=== PATIENT | male | born 1960 | race Caucasian/White ===

== ENCOUNTER 2017-05-31 14:26 | Inpatient (IN) | payer OTHER ==
[2017-05-31] MEDS ORDERED: IPRATROPIUM-ALBUTEROL 3 ML NEB INHALATION STA (14:51)
--- NOTE | 2017-05-31 14:53 | ED ---
General Adult HPI - General Chief complaint: Shortness of Breath Stated complaint: Fever, Upper Resp Issues Time Seen by Provider: 05/31/17 14:33 Source: family, RN notes reviewed Mode of arrival: wheelchair Limitations: altered mental status, physical limitation - History of Present Illness Initial comments: Patient is a 57-year-old male presenting to emergency Department with staff member for concerns for breathing. Onset was around 1:30 AM. Patient was noticed to be wheezing and had fever. Patient was given medications. Patient did receive Tylenol or Motrin at 11:30 and 1:30. Patient did have a nebulizer treatment prior to arrival. Patient has a history of head injury and provides no significant history. Patient is not ambulatory. - Related Data Home Medications Medication Instructions Recorded Confirmed Acetaminophen Tab [Tylenol Tab] 1,000 mg PO Q6HR PRN 10/04/16 05/31/17 Albuterol Nebulized [Ventolin 2.5 mg INHALATION RT-Q4H PRN 10/04/16 05/31/17 Nebulized] Divalproex Sodium [Depakote 125 mg PO QID 10/04/16 05/31/17 Sprinkle] Divalproex Sodium [Depakote] 500 mg PO QID 10/04/16 05/31/17 Docusate [Colace] 200 mg PO BID@08,199910/04/16 05/31/17 Famotidine [Pepcid] 20 mg PO HS@199910/04/16 05/31/17 Ferrous Sulfate [Feosol] 325 mg PO DAILY@0800 10/04/16 05/31/17 Furosemide [Lasix] 60 mg PO BID@799,199910/04/16 05/31/17 Ipratropium Nebulized [Atrovent 0.5 mg INHALATION RT-QID 10/04/16 05/31/17 Nebulized] LORazepam [Ativan] 1 mg PO TID PRN 10/04/16 05/31/17 Loratadine 10 mg PO DAILY@0800 10/04/16 05/31/17 Magnesium Hydroxide [Milk of 2,400 mg PO DAILY PRN 10/04/16 05/31/17 Magnesia] Potassium Chloride ER [K-Dur 10] 10 meq PO BID@799,199910/04/16 05/31/17 carBAMazepine [TEGretol] 400 mg PO TID@0800,1400,199910/04/16 05/31/17 predniSONE 20 mg PO HS@199910/04/16 05/31/17 risperiDONE 1 mg PO QID 10/04/16 05/31/17 Atorvastatin [Lipitor] 20 mg PO HS@199905/31/17 05/31/17 Hydrocortisone Cream 1 applic TOPICAL BID@00,199905/31/17 05/31/17 [Hydrocortisone 1% Cream] Allergies Allergy/AdvReac Type Severity Reaction Status Date / Time No Known Allergies Allergy Verified 05/31/17 15:30 Review of Systems ROS Statement: Those systems with pertinent positive or pertinent negative responses have been documented in the HPI. ROS Other: All systems not noted in ROS Statement are negative. Constitutional: Reports: fever Eyes: Denies: eye discharge ENT: Denies: epistaxis Respiratory: Reports: dyspnea Cardiovascular: Denies: edema Endocrine: Denies: heat or cold intolerance Gastrointestinal: Denies: vomiting Genitourinary: Denies: hematuria Musculoskeletal: Denies: arthralgia Skin: Denies: rash Hematological/Lymphatic: Denies: easy bleeding Past Medical History Past Medical History: Heart Failure, COPD, Hypertension, Memory Impairment, Pneumonia, Seizure Disorder Additional Past Medical History / Comment(s): verbal outbursts,VERBALLY INAPPROPRIATE, TRAUMATIC BRAIN INJURY,LT HEMIPARESIS,INCONT OF STOOL/URINE, FEET SENSATIVE.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 History of Any Multi-Drug Resistant Organisms: Unobtainable Past Surgical History: Unable to Obtain Additional Past Surgical History / Comment(s): [facility]- THEY HAD NO HX OF ANY SX. Past Anesthesia/Blood Transfusion Reactions: Unable to Obtain Past Psychological History: Depression Smoking Status: Former smoker Past Alcohol Use History: Occasional Past Drug Use History: None Reported - Past Family History Father Family Medical History: Unable to Obtain Mother Family Medical History: Unable to Obtain General Exam Limitations: no limitations General appearance: alert, in no apparent distress Head exam: Present: atraumatic Eye exam: Present: normal appearance, PERRL ENT exam: Present: normal oropharynx Neck exam: Present: normal inspection Respiratory exam: Present: wheezes, rhonchi Cardiovascular Exam: Present: tachycardia GI/Abdominal exam: Present: soft. Absent: tenderness Extremities exam: Present: normal inspection Neurological exam: Present: alert, altered, motor sensory deficit (Bilateral leg and left arm weakness) Psychiatric exam: Present: agitated Skin exam: Present: normal color Course Vital Signs 05/31/17 05/31/17 05/31/17 14:36 14:59 15:06 Temperature 98.7 F Pulse Rate 122 H 105 H Respiratory 30 H 26 H Rate Blood Pressure 163/95 O2 Sat by Pulse 97 Oximetry 05/31/17 05/31/17 05/31/17 15:18 15:30 16:38 Temperature Pulse Rate 102 H 103 H 100 Respiratory 22 24 Rate Blood Pressure 137/77 159/68 O2 Sat by Pulse 95 95 Oximetry - Reevaluation(s) Reevaluation #1: 05/31/17 15:48 Patient meet sepsis criteria diagnosed at 1542. Chest x-ray cannot rule out pneumonia with clinical concerns for pneumonia. Urine has been sent. Lactic acid is elevated at 4.85 patient for septic shock. IV fluid bolus of 30 mL/kg has been ordered. IV antibiotics has been ordered. Blood cultures and urine culture have also been ordered. Practice Advisor was updated. EKG Findings - EKG Comments: EKG Findings:: Sinus tachycardia 107. MS 152. QRS 92. QT 328. QTC 437. Normal axis. Normal QRS. Nonspecific ST-T. Procedures - Sepsis Sepsis Focused Exam #1 Time Sepsis Criteria Met: 15:42 Sepsis Focused Exam Date: 05/31/17 Sepsis Focused Exam Time: 15:42 Sepsis Focused Exam Complete: Yes Vital Signs & RN Notes Reviewed: Yes Capillary Refill: < 2 Seconds: Fingers, Toes Peripheral Pulses: Normal: Radial (R), Radial (L), Posterior Tibialis (R), Posterior Tibialis (L) Skin Color: Normal for Patient Respiratory Exam: rhonchi Cardiovascular Exam: tachycardia Medical Decision Making - Medical Decision Making Patient was reevaluated. Case was discussed with Dr. david, who will admit for Dr. Bhandari. Case was also discussed with Dr. Pacheco, who will consult for Dr. Byers. He does not feel patient needs to go to the ICU. Patient clinically has diagnosis of pneumonia which treated for this. - Lab Data Result diagrams: 05/31/17 14:51 05/31/17 14:51 Lab Results 05/31/17 05/31/17 05/31/17 Range/Units 14:51 14:51 14:51 WBC 13.1 H (3.8-10.6) k/uL RBC 4.23 L (4.30-5.90) m/uL Hgb 12.7 L (13.0-17.5) gm/dL Hct 40.1 (39.0-53.0) % MCV 94.9 (80.0-100.0) fL MCH 30.1 (25.0-35.0) pg MCHC 31.8 (31.0-37.0) g/dL RDW 14.2 (11.5-15.5) % Plt Count 292 (150-450) k/uL Neutrophils % 78 % Lymphocytes % 14 % Monocytes % 6 % Eosinophils % 1 % Basophils % 0 % Neutrophils # 10.2 H (1.3-7.7) k/uL Lymphocytes # 1.8 (1.0-4.8) k/uL Monocytes # 0.8 (0-1.0) k/uL Eosinophils # 0.1 (0-0.7) k/uL Basophils # 0.0 (0-0.2) k/uL PT (9.0-12.0) sec INR (<1.2) APTT (22.0-30.0) sec Sodium 142 (137-145) mmol/L Potassium 3.5 (3.5-5.1) mmol/L Chloride 100 (98-107) mmol/L Carbon Dioxide 27 (22-30) mmol/L Anion Gap 15 mmol/L BUN 9 (9-20) mg/dL Creatinine 0.70 (0.66-1.25) mg/dL Est GFR (MDRD) Af Amer >60 (>60 ml/min/1.73 sqM) Est GFR (MDRD) Non-Af >60 (>60 ml/min/1.73 sqM) Glucose 141 H (74-99) mg/dL Plasma Lactic Acid Hermes 4.8 H* (0.7-2.0) mmol/L Calcium 9.3 (8.4-10.2) mg/dL Total Bilirubin 0.3 (0.2-1.3) mg/dL AST 14 L (17-59) U/L ALT 22 (21-72) U/L Alkaline Phosphatase 90 (38-126) U/L Total Protein 6.7 (6.3-8.2) g/dL Albumin 4.1 (3.5-5.0) g/dL Urine Color Urine Appearance (Clear) Urine pH (5.0-8.0) Ur Specific [place] (1.001-1.035) Urine Protein (Negative) Urine Glucose (UA) (Negative) Urine Ketones (Negative) Urine Blood (Negative) Urine Nitrite (Negative) Urine Bilirubin (Negative) Urine Urobilinogen (<2.0) mg/dL Ur Leukocyte Esterase (Negative) 05/31/17 05/31/17 Range/Units 14:51 15:39 WBC (3.8-10.6) k/uL RBC (4.30-5.90) m/uL Hgb (13.0-17.5) gm/dL Hct (39.0-53.0) % MCV (80.0-100.0) fL MCH (25.0-35.0) pg MCHC (31.0-37.0) g/dL RDW (11.5-15.5) % Plt Count (150-450) k/uL Neutrophils % % Lymphocytes % % Monocytes % % Eosinophils % % Basophils % % Neutrophils # (1.3-7.7) k/uL Lymphocytes # (1.0-4.8) k/uL Monocytes # (0-1.0) k/uL Eosinophils # (0-0.7) k/uL Basophils # (0-0.2) k/uL PT 11.3 (9.0-12.0) sec INR 1.1 (<1.2) APTT 26.5 (22.0-30.0) sec Sodium (137-145) mmol/L Potassium (3.5-5.1) mmol/L Chloride (98-107) mmol/L Carbon Dioxide (22-30) mmol/L Anion Gap mmol/L BUN (9-20) mg/dL Creatinine (0.66-1.25) mg/dL Est GFR (MDRD) Af Amer (>60 ml/min/1.73 sqM) Est GFR (MDRD) Non-Af (>60 ml/min/1.73 sqM) Glucose (74-99) mg/dL Plasma Lactic Acid Hermes (0.7-2.0) mmol/L Calcium (8.4-10.2) mg/dL Total Bilirubin (0.2-1.3) mg/dL AST (17-59) U/L ALT (21-72) U/L Alkaline Phosphatase (38-126) U/L Total Protein (6.3-8.2) g/dL Albumin (3.5-5.0) g/dL Urine Color Yellow Urine Appearance Clear (Clear) Urine pH 6.5 (5.0-8.0) Ur Specific [place] 1.013 (1.001-1.035) Urine Protein Negative (Negative) Urine Glucose (UA) Negative (Negative) Urine Ketones Negative (Negative) Urine Blood Negative (Negative) Urine Nitrite Negative (Negative) Urine Bilirubin Negative (Negative) Urine Urobilinogen <2.0 (<2.0) mg/dL Ur Leukocyte Esterase Negative (Negative) - Radiology Data Radiology results: image reviewed (Chest x-ray shows diffuse interstitial changes.) Critical Care Time Critical Care Time: Yes Total Critical Care Time: 35 Disposition Clinical Impression: Septic shock, Pneumonia Disposition[facility] Condition: Serious Referrals: Alexander Bhandari MD [Primary Care Provider] - 1-2 days Decision Time: 16:42
[2017-05-31] MEDS: SODIUM CHLORIDE 0.9% 500 ML IV SCH (14:59)
[2017-05-31 15:22] LABS: ALT 22 U/L (21-72); AST 14 U/L (17-59); Alkaline Phosphatase 90 U/L (38-126); Anion Gap 15 mmol/L; Blood Urea Nitrogen 9 mg/dL (9-20); Calcium 9.3 mg/dL (8.4-10.2); Carbon Dioxide 27 mmol/L (22-30); Chloride 100 mmol/L (98-107); Glucose 141 mg/dL (74-99); Non-African American GFR(MDRD) >60 (>60 ml/min/1.73 sqM); Potassium 3.5 mmol/L (3.5-5.1); Sodium 142 mmol/L (137-145); Total Bilirubin 0.3 mg/dL (0.2-1.3); Total Protein 6.7 g/dL (6.3-8.2)
[2017-05-31 15:25] LABS: INR 1.1 (<1.2); Partial Thromboplastin Time 26.5 sec (22.0-30.0); Prothrombin Time 11.3 sec (9.0-12.0)
[2017-05-31] MEDS ORDERED: SODIUM CHLORIDE 0.9% 1,000 ML IV STA (15:32)
[2017-05-31] MEDS ORDERED: SODIUM CHLORIDE 0.9% 500 ML IV STA (15:32)
[2017-05-31] MEDS ORDERED: SODIUM CHLORIDE 0.9% 250 ML IV STA (15:32)
[2017-05-31 15:35] LABS: Basophils % (A) 0 %; CH 30.2; Eosinophils # (A) 0.1 k/uL (0-0.7); Eosinophils % (A) 1 %; HCT 40.1 % (39.0-53.0); HDW 2.57; HGB 12.7 gm/dL (13.0-17.5); Luc # (Auto) 0.15; Luc % (Auto) 1; Lymphocytes # (A) 1.8 k/uL (1.0-4.8); Lymphocytes % (A) 14 %; MCH 30.1 pg (25.0-35.0); MCHC 31.8 g/dL (31.0-37.0); MCV 94.9 fL (80.0-100.0); Mean Platelet Volume 6.8; Monocytes # (A) 0.8 k/uL (0-1.0); Monocytes % (A) 6 %; Neutrophils # (A) 10.2 k/uL (1.3-7.7); Neutrophils % (A) 78 %; RBC 4.23 m/uL (4.30-5.90); RDW 14.2 % (11.5-15.5); WBC 13.1 k/uL (3.8-10.6); WBC (Perox) 12.68
--- NOTE | 2017-05-31 15:37 | XR ---
EXAMINATION TYPE: XR chest 2V DATE OF EXAM: 05/31/2017 COMPARISON: Chest x-ray October 11, 2016. HISTORY: Fever per order. Also shortness of breath. TECHNIQUE: Frontal and lateral views of the chest are obtained. FINDINGS: Elevated left hemidiaphragm is redemonstrated. There is redemonstration of low lung volumes with reticulonodular interstitial changes felt to reflect predominantly fibrosis. Some areas of acut e infiltrate particularly in the lung bases is difficult to exclude on background of suspected advanc ed chronic interstitial changes. The cardiac silhouette size is stable and likely slightly enlarged. The osseous structures are demineralized. Prominent degenerative change in both shoulders is redemo nstrated IMPRESSION: Low lung volumes and elevated left hemidiaphragm with reticulonodular interstitial greer es bilaterally suggesting advanced interstitial fibrosis all redemonstrated, areas of acute infiltrat e are difficult to exclude particularly in both lung bases on background of chronic changes.
[2017-05-31 15:46] LABS: Appearance,Urine Clear (Clear); Bilirubin,Urine Negative (Negative); Glucose,Urine (UA) Negative (Negative); Ketones,Urine Negative (Negative); Leukocyte Esterase,Urine Negative (Negative); Nitrite,Urine Negative (Negative); PH, Urine 6.5 (5.0-8.0); Protein,Urine Negative (Negative); Specific Gravity,Urine 1.013 (1.001-1.035); UA Billing (MACRO vs. MICRO) CHEM; Urobilinogen,Urine <2.0 mg/dL (<2.0)
[2017-05-31] MEDS ORDERED: LEVOFLOXACIN 750MG-D5W PMX 750 MG in DEXTROSE/WATER 1 150ML.BAG IVPB STA (15:47)
[2017-05-31] MEDS ORDERED: LEVOFLOXACIN 750MG-D5W PMX 750 MG in DEXTROSE/WATER 1 150ML.BAG IVPB SCH (16:00)
[2017-05-31] MEDS ORDERED: PNEUMONIA PROTOCOL UTILIZED 1 EACH MISC PO PRN (16:42)
[2017-05-31] MEDS ORDERED: IPRATROPIUM-ALBUTEROL 3 ML NEB INHALATION PRN (16:42)
[2017-05-31] MEDS ORDERED: PIPERACILLIN-TAZOBACTAM 3.375 GM in DEXTROSE/WATER 1 50ML.BAG IVPB STA (16:42)
[2017-05-31 16:45] LABS: Carbamazepine (Tegretol) 12.5 ug/mL
[2017-05-31] MEDS ORDERED: ALBUTEROL NEBULIZED 2.5 MG/3 ML INHALATION PRN (17:28)
[2017-05-31] MEDS ORDERED: ACETAMINOPHEN TAB 500 MG TAB PO PRN (17:28)
[2017-05-31] MEDS ORDERED: MAGNESIUM HYDROXIDE 2,400 MG/10 ML CUP PO PRN (17:28)
[2017-05-31 17:50] VITALS: BMI 27.5
[2017-05-31] MEDS ORDERED: HALOPERIDOL LACTATE 5 MG/ML 1 ML VIAL IM PRN (17:57)
[2017-05-31] MEDS ORDERED: PIPERACILLIN-TAZOBACTAM 3.375 GM in DEXTROSE/WATER 1 50ML.BAG IVPB SCH (18:00)
--- NOTE | 2017-05-31 18:28 | P.HPIM ---
History of Present Illness H&P Date: 05/31/17 (PCP Dr. Bhandari) Chief Complaint: From [facility] short of breath Admission history and physical date of service 05/31/[address] Alexander Bhandari Dictating admission history and physical in the temporary absence of Dr. Mal Bhandari Dictating history and physical by Dr. Yessica Schwarz M.D. [facility]. Patient resident at [facility] Home. Patient brought to the emergency room by EMS with the underlying shortness of breath and found that his lactic acid was 4 admitted because of possible sepsis. History of present illness Emi admitted today on May with a shortness of breath had fever at the [facility] found that he had lactic acid elevation with a previous presentation on 10/04/2016 with similar finding. 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 History of depression no alcohol intake no drug intake and never smoked. Family history on available social history resident at [facility] care. Review of system could not be obtained as patient is non-verbal with the explosive behavior. In the emergency room patient placed on pneumonia protocol. Because just the event of lactic acid elevation, and the chest x-ray was not clearly identified pneumonia however patient has mild leukocytosis probably associated with prednisone. Unclear how long the patient has been taken prednisone and what is the reason for that. 9 in previous record showed that the x-ray has similar finding with the shift to the right, elevation of the left hemidiaphragm, largest amount bubble on the left. However overall looks as pulmonary scarring more than infection and leukocytosis could be from the margination of the steroid especially found that his presence of elevated Tegretol level and a Depakote level in the appear to be toxic dose we held the medication. Physical exam: Patient is is conscious and alert however he is abusing verbally to the nursing staff as well as to me at the time of the exam. He could not move his left arm or left leg with the clinching of the hand on his left hand. HEENT: He had skin lesion in the right congregation keratosis however it is enlarged. The head is normocephalic and atraumatic pupil was equal reactive oropharynx he had few decayed and uvula midline tongue was normal no fascial asymmetry. Was supple no JVD he had a scar on the base of the neck with questionable history of surgery unclear what is the surgery that done before and possible tracheostomy versus thyroid surgery is unknown at this time. The chest has symmetrical with scattered rhonchi however no wheezes patient is comfortable in bed with no dyspnea or orthopnea. The heart is regular sinus rhythm with mild tachycardia on admission and his blood pressure was not controlled. The abdomen is soft positive bowel sounds no organ palpated. Genitourinary patient is incontinent urine and stools and he wearing diapers. Neurologically could not communicate, and abusive behavior, CVA and left hemiparesis underlying seizure disorder. Assessment: #1 probability of sepsis and pneumonitis considered but not convincing. #2 pulmonary fibrosis. #3 seizure disorder. #4 toxicity of Depakote and the Tegretol has been held. #5 leukocytosis probably secondary to this steroid which we don't have any record for the use. Right CVA with left hemiparesis patient and ambulatory. Plan: #1 hydration #2 computed tomography scan high resolution for pulmonary fibrosis and pneumonitis #3 repeat laboratory tomorrow including lactic acid. Which has been the second time since September 2016. 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 Number for his renal function has been stable. 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 History of Any Multi-Drug Resistant Organisms: Unobtainable Past Surgical History: Unable to Obtain Additional Past Surgical History / Comment(s): BARSS RESIDENTAL Past Anesthesia/Blood Transfusion Reactions: Unable to Obtain Past Psychological History: Depression Smoking Status: Former smoker Past Alcohol Use History: Occasional Additional Past Alcohol Use History / Comment(s): PER PAST MEDICAL HX- PAST HX OF SMOKING AND ETOH Past Drug Use History: None Reported - Past Family History Father Family Medical History: Unable to Obtain Mother Family Medical History: Unable to Obtain Medications and Allergies Home Medications Medication Instructions Recorded Confirmed Type Acetaminophen Tab [Tylenol Tab] 1,000 mg PO Q6HR PRN 10/04/16 05/31/17 History Albuterol Nebulized [Ventolin 2.5 mg INHALATION RT-Q4H PRN 10/04/16 05/31/17 History Nebulized] Divalproex Sodium [Depakote 125 mg PO QID 10/04/16 05/31/17 History Sprinkle] Divalproex Sodium [Depakote] 500 mg PO QID 10/04/16 05/31/17 History Docusate [Colace] 200 mg PO BID@0800,199910/04/16 05/31/17 History Famotidine [Pepcid] 20 mg PO HS@199910/04/16 05/31/17 History Ferrous Sulfate [Feosol] 325 mg PO DAILY@0800 10/04/16 05/31/17 History Furosemide [Lasix] 60 mg PO BID@0800,199910/04/16 05/31/17 History Ipratropium Nebulized [Atrovent 0.5 mg INHALATION RT-QID 10/04/16 05/31/17 History Nebulized] LORazepam [Ativan] 1 mg PO TID PRN 10/04/16 05/31/17 History Loratadine 10 mg PO DAILY@0800 10/04/16 05/31/17 History Magnesium Hydroxide [Milk of 2,400 mg PO DAILY PRN 10/04/16 05/31/17 History Magnesia] Potassium Chloride ER [K-Dur 10] 10 meq PO BID@0800,199910/04/16 05/31/17 History carBAMazepine [TEGretol] 400 mg PO TID@0800,1400,199910/04/16 05/31/17 History predniSONE 20 mg PO HS@199910/04/16 05/31/17 History risperiDONE 1 mg PO QID 10/04/16 05/31/17 History Atorvastatin [Lipitor] 20 mg PO HS@199905/31/17 05/31/17 History Hydrocortisone Cream 1 applic TOPICAL BID@0800,199905/31/17 05/31/17 History [Hydrocortisone 1% Cream] Allergies Allergy/AdvReac Type Severity Reaction Status Date / Time No Known Allergies Allergy Verified 05/31/17 15:30 Physical Exam Vitals: Vital Signs Temp Pulse Resp BP Pulse Ox 05/31/17 16:50 97.1 F L 99 24 05/31/17 16:38 100 24 159/68 95 05/31/17 15:30 103 H 22 137/77 95 05/31/17 15:18 102 H 05/31/17 15:06 105 H 05/31/17 14:59 26 H 05/31/17 14:36 98.7 F 122 H 30 H 163/95 97 Intake and Output 05/31/17 05/31/17 05/31/17 06:59 14:59 22:59 Other: Weight 90.718 kg 87 kg Patient Weight 06/01/17 06:59 Weight 87 kg Results CBC & Chem 7: 05/31/17 14:51 05/31/17 14:51 Labs: Abnormal Lab Results - Last 24 Hours (Table) 05/31/17 05/31/17 05/31/17 Range/Units 14:51 14:51 14:51 WBC 13.1 H (3.8-10.6) k/uL RBC 4.23 L (4.30-5.90) m/uL Hgb 12.7 L (13.0-17.5) gm/dL Neutrophils # 10.2 H (1.3-7.7) k/uL Glucose 141 H (74-99) mg/dL Plasma Lactic Acid Hermes 4.8 H* (0.7-2.0) mmol/L AST 14 L (17-59) U/L Valproic Acid ug/mL Carbamazepine ug/mL 05/31/17 Range/Units 14:51 WBC (3.8-10.6) k/uL RBC (4.30-5.90) m/uL Hgb (13.0-17.5) gm/dL Neutrophils # (1.3-7.7) k/uL Glucose (74-99) mg/dL Plasma Lactic Acid Hermes (0.7-2.0) mmol/L AST (17-59) U/L Valproic Acid 111.8 H* ug/mL Carbamazepine 12.5 H* ug/mL
--- NOTE | 2017-05-31 19:45 | CT ---
EXAMINATION TYPE: CT chest wo con DATE OF EXAM: 05/31/2017 COMPARISON: Chest x-ray earlier today HISTORY: Fibrosis. CT DLP: 179.6 mGycm. Automated Exposure Control for Dose Reduction was Utilized. TECHNIQUE: CT scan of the thorax is performed without IV contrast. High-resolution protocol with 10 mm sequences obtained in supine and prone technique. FINDINGS: Exam is suboptimal as patient could not raise arms overhead this causes artifact through th e thorax. In addition patient could not complete prone imaging. LUNGS: Elevated left hemidiaphragm is redemonstrated. There are areas of reticulation bilaterally inv olving upper and lower lungs with some central and peripheral involvement. No large pleural effusion or pneumothorax is seen bilaterally MEDIASTINUM: Lack of IV contrast is noted to limit evaluation for mediastinal and especially hilar ad enopathy. There are no definitive greater than 1 cm hilar or mediastinal lymph nodes. No cardiomega ly or pericardial effusion is seen. OTHER: Some asymmetric left-sided gynecomastia is felt present. IMPRESSION: Suboptimal study. Low lung volumes with elevated left hemidiaphragm in scattered areas of moderate to advanced parenchymal fibrosis felt present bilaterally. No definitive suspicious focal a cute infiltrate.
[2017-05-31] MEDS: IPRATROPIUM 0.5 MG/2.5 ML NEBU INHALATION SCH ×2 (19:50→20:09)
[2017-05-31] MEDS: SODIUM CHLORIDE 0.9% 1,000 ML IV SCH (19:58)
[2017-05-31] MEDS ORDERED: IPRATROPIUM-ALBUTEROL 3 ML NEB INHALATION SCH (20:00)
[2017-05-31] MEDS: ENOXAPARIN 30 MG/0.3 ML SYRINGE SQ SCH (20:08)
[2017-05-31] MEDS: LORazepam 0.5 MG TAB PO SCH (20:09)
[2017-05-31] MEDS: DOCUSATE 100 MG CAP PO SCH (20:09)
[2017-05-31] MEDS: ATORVASTATIN 20 MG TAB PO SCH (20:09)
[2017-05-31] MEDS: FAMOTIDINE 20 MG TAB PO SCH (20:09)
[2017-05-31] MEDS: FUROSEMIDE 20 MG TAB PO SCH (20:10)
[2017-05-31] MEDS: HYDROCORTISONE 1% CREAM 30 GM TUBE TOPICAL SCH (20:10)
[2017-06-01] MEDS: PIPERACILLIN-TAZOBACTAM 3.375 GM in DEXTROSE/WATER 1 50ML.BAG IVPB SCH ×4 (01:02→23:08)
[2017-06-01] MEDS: SODIUM CHLORIDE 0.9% 1,000 ML IV SCH ×3 (03:13→22:09)
[2017-06-01 07:10] LABS: Basophils % (A) 0 %; CH 30.4; CHCM 31.9; Eosinophils # (A) 0.2 k/uL (0-0.7); Eosinophils % (A) 2 %; HCT 32.5 % (39.0-53.0); HGB 10.2 gm/dL (13.0-17.5); Luc # (Auto) 0.27; Luc % (Auto) 3; Lymphocytes # (A) 1.6 k/uL (1.0-4.8); Lymphocytes % (A) 16 %; MCHC 31.3 g/dL (31.0-37.0); MCV 95.9 fL (80.0-100.0); Mean Platelet Volume 7.5; Monocytes # (A) 1.1 k/uL (0-1.0); Monocytes % (A) 11 %; Neutrophils # (A) 7.1 k/uL (1.3-7.7); Neutrophils % (A) 69 %; RBC 3.39 m/uL (4.30-5.90); RDW 14.6 % (11.5-15.5); WBC 10.3 k/uL (3.8-10.6); WBC (Perox) 10.38
[2017-06-01 07:26] LABS: Anion Gap 6 mmol/L; Blood Urea Nitrogen 5 mg/dL (9-20); Calcium 8.4 mg/dL (8.4-10.2); Carbon Dioxide 30 mmol/L (22-30); Chloride 106 mmol/L (98-107); Glucose 96 mg/dL (74-99); Non-African American GFR(MDRD) >60 (>60 ml/min/1.73 sqM); Potassium 3.6 mmol/L (3.5-5.1); Sodium 142 mmol/L (137-145)
[2017-06-01] MEDS: IPRATROPIUM 0.5 MG/2.5 ML NEBU INHALATION SCH ×2 (07:49→11:43)
[2017-06-01] MEDS: DOCUSATE 100 MG CAP PO SCH ×2 (08:21→21:58)
[2017-06-01] MEDS: ENOXAPARIN 30 MG/0.3 ML SYRINGE SQ SCH (08:21)
[2017-06-01] MEDS: LORATADINE 10 MG TAB PO SCH (08:21)
[2017-06-01] MEDS: HYDROCORTISONE 1% CREAM 30 GM TUBE TOPICAL SCH ×2 (08:21→21:59)
[2017-06-01] MEDS: FUROSEMIDE 20 MG TAB PO SCH ×2 (08:21→21:53)
[2017-06-01] MEDS ORDERED: IPRATROPIUM-ALBUTEROL 3 ML NEB INHALATION PRN (12:19)
--- NOTE | 2017-06-01 14:00 | XR ---
EXAMINATION TYPE: XR chest 1V DATE OF EXAM: 06/01/2017 HISTORY: pneumonia. REFERENCE: Previous study dated 05/31/2017. FINDINGS: There is elevation of the left hemidiaphragm. There are low lung volumes bilaterally. Heart size is obscured. There is diffuse interstitial change. This is chronic. LV difficult to exclude sup erimposed pneumonia. No pleural fluid is seen. IMPRESSION: DIFFUSE INTERSTITIAL FIBROSIS.
--- NOTE | 2017-06-01 14:25 | P.CONS ---
History of Present Illness - Reason for Consult Consult date: 06/01/17 Seizure disorder - History of Present Illness This is a 57-year-old male being evaluated by the neurology service for seizure disorder and supratherapeutic medication levels. 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 He has a history of seizure disorder but no seizure activity has been reported since his admission. His valproic acid level was 111.8. This is a little high but still within the therapeutic range. His Tegretol level was 12.5. Height and of normal is 12. Both medicines have been held temporarily. At the time of my exam he is resting comfortably in bed. It is reported that he is been aggressive and agitated during his admission. No new neurological symptoms have been reported. An EEG has been ordered and will see if he will tolerate this. 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 History of Any Multi-Drug Resistant Organisms: Unobtainable Past Surgical History: Unable to Obtain Additional Past Surgical History / Comment(s): GILDARDO RESIDENTSERENITY Past Anesthesia/Blood Transfusion Reactions: Unable to Obtain Past Psychological History: Depression Smoking Status: Former smoker Past Alcohol Use History: Occasional Additional Past Alcohol Use History / Comment(s): PER PAST MEDICAL HX- PAST HX OF SMOKING AND ETOH Past Drug Use History: None Reported - Past Family History Father Family Medical History: Unable to Obtain Mother Family Medical History: Unable to Obtain Medications and Allergies Home Medications Medication Instructions Recorded Confirmed Type Acetaminophen Tab [Tylenol Tab] 1,000 mg PO Q6HR PRN 10/04/16 05/31/17 History Albuterol Nebulized [Ventolin 2.5 mg INHALATION RT-Q4H PRN 10/04/16 05/31/17 History Nebulized] Divalproex Sodium [Depakote 125 mg PO QID 10/04/16 05/31/17 History Sprinkle] Divalproex Sodium [Depakote] 500 mg PO QID 10/04/16 05/31/17 History Docusate [Colace] 200 mg PO BID@0800,199910/04/16 05/31/17 History Famotidine [Pepcid] 20 mg PO HS@199910/04/16 05/31/17 History Ferrous Sulfate [Feosol] 325 mg PO DAILY@0800 10/04/16 05/31/17 History Furosemide [Lasix] 60 mg PO BID@0800,199910/04/16 05/31/17 History Ipratropium Nebulized [Atrovent 0.5 mg INHALATION RT-QID 10/04/16 05/31/17 History Nebulized] LORazepam [Ativan] 1 mg PO TID PRN 10/04/16 05/31/17 History Loratadine 10 mg PO DAILY@0800 10/04/16 05/31/17 History Magnesium Hydroxide [Milk of 2,400 mg PO DAILY PRN 10/04/16 05/31/17 History Magnesia] Potassium Chloride ER [K-Dur 10] 10 meq PO BID@0800,199910/04/16 05/31/17 History carBAMazepine [TEGretol] 400 mg PO TID@0800,1399,199910/04/16 05/31/17 History predniSONE 20 mg PO HS@199910/04/16 05/31/17 History risperiDONE 1 mg PO QID 10/04/16 05/31/17 History Atorvastatin [Lipitor] 20 mg PO HS@199905/31/17 05/31/17 History Hydrocortisone Cream 1 applic TOPICAL BID@0800,199905/31/17 05/31/17 History [Hydrocortisone 1% Cream] Allergies Allergy/AdvReac Type Severity Reaction Status Date / Time No Known Allergies Allergy Verified 05/31/17 15:30 Physical Exam Vitals: Vital Signs Temp Pulse Pulse Resp BP BP Pulse Ox 06/01/17 12:00 98.0 F 98 18 130/76 95 06/01/17 11:52 86 06/01/17 11:44 96 06/01/17 08:00 98.9 F 108 H 96 20 146/70 96 06/01/17 07:50 104 H 06/01/17 04:00 98.8 F 100 20 161/68 99 06/01/17 00:00 98.7 F 98 20 132/74 100 05/31/17 20:00 98.4 F 95 22 129/72 98 05/31/17 17:59 96.7 F L 98 24 164/83 99 05/31/17 16:50 97.1 F L 99 24 05/31/17 16:38 100 24 159/68 95 05/31/17 15:30 103 H 22 137/77 95 05/31/17 15:18 102 H 05/31/17 15:06 105 H 05/31/17 14:59 26 H 05/31/17 14:36 98.7 F 122 H 30 H 163/95 97 Intake and Output 05/31/17 06/01/17 06/01/17 22:59 06:59 14:59 Intake Total 1800 1100 Balance 1800 1100 Intake: Intake, IV Titration 1800 1100 Amount Levofloxacin 750Mg-D5w 150 Pmx 750 mg In Dextrose/ Water 1 150ml.bag @ 100 mls/hr IVPB Q24H [facility] Rx#: [id number] Piperacillin-Tazobactam 3 50 .375 gm In Dextrose/Water 1 50ml.bag @ 12.5 mls/hr IVPB ONCE [facility] Rx#: [id number] Sodium Chloride 0.9% 1, 100 1100 000 ml @ 100 mls/hr IV . Q10H [facility] Rx#:[id number] Sodium Chloride 0.9% 1, 1000 000 ml @ 999 mls/hr IV . Q1H1M [facility] Rx#:[id number] Sodium Chloride 0.9% 500 500 ml @ 999 mls/hr IV .Q31M [facility] Rx#:[id number] Other: Voiding Method Diaper Diaper Diaper Weight 87 kg 91 kg - Constitutional General appearance: average body habitus, no acute distress - EENT Eyes: no abnormal pupil, PERRLA, no ptosis ENT: hard of hearing Ears: bilateral: normal - Neck Neck: normal ROM, no rigidity - Respiratory Respiratory: negative: prolonged expiration, prolonged inspiration - Cardiovascular Rhythm: regular - Gastrointestinal General gastrointestinal: no distended, no tenderness - Neurologic The patient is awake and somewhat alert. He has his headphones on and is resting quietly. There is obvious left-sided hemiparesis. Mild action tremors are seen in the right hand. No seizure-like activity is noticed. He is noncommunicative, and is not following simple commands are now. Results CBC & Chem 7: 06/01/17 06:42 06/01/17 06:42 Labs: Abnormal Lab Results - Last 24 Hours (Table) 05/31/17 05/31/17 05/31/17 Range/Units 14:51 14:51 14:51 WBC 13.1 H (3.8-10.6) k/uL RBC 4.23 L (4.30-5.90) m/uL Hgb 12.7 L (13.0-17.5) gm/dL Hct (39.0-53.0) % Neutrophils # 10.2 H (1.3-7.7) k/uL Monocytes # (0-1.0) k/uL BUN (9-20) mg/dL Creatinine (0.66-1.25) mg/dL Glucose 141 H (74-99) mg/dL Plasma Lactic Acid Hermes 4.8 H* (0.7-2.0) mmol/L AST 14 L (17-59) U/L Valproic Acid ug/mL Carbamazepine ug/mL 05/31/17 05/31/17 06/01/17 Range/Units 14:51 18:40 06:42 WBC (3.8-10.6) k/uL RBC 3.39 L (4.30-5.90) m/uL Hgb 10.2 L (13.0-17.5) gm/dL Hct 32.5 L (39.0-53.0) % Neutrophils # (1.3-7.7) k/uL Monocytes # 1.1 H (0-1.0) k/uL BUN (9-20) mg/dL Creatinine (0.66-1.25) mg/dL Glucose (74-99) mg/dL Plasma Lactic Acid Hermes 3.3 H* (0.7-2.0) mmol/L AST (17-59) U/L Valproic Acid 111.8 H* ug/mL Carbamazepine 12.5 H* ug/mL 06/01/17 Range/Units 06:42 WBC (3.8-10.6) k/uL RBC (4.30-5.90) m/uL Hgb (13.0-17.5) gm/dL Hct (39.0-53.0) % Neutrophils # (1.3-7.7) k/uL Monocytes # (0-1.0) k/uL BUN 5 L (9-20) mg/dL Creatinine 0.54 L (0.66-1.25) mg/dL Glucose (74-99) mg/dL Plasma Lactic Acid Hermes (0.7-2.0) mmol/L AST (17-59) U/L Valproic Acid ug/mL Carbamazepine ug/mL Microbiology - Last 24 Hours (Table) 05/31/17 15:39 Urine Culture - Preliminary Urine,Catheterized Assessment and Plan (1) Left hemiparesis Status: Chronic (2) Seizure disorder Status: Chronic (3) Pneumonia Status: Suspected (4) Sepsis Status: Acute (5) History of stroke Status: Chronic Plan: We have reviewed his therapeutic drug levels which are only mildly elevated. Since there were no reports of breakthrough seizures or signs of toxicity at these levels. Recommend restarting his medications as previous doses. Recommend rechecking therapeutic drug levels. Continue the rest of your workup. I don't believe he would tolerate an EEG at this point. We can be consulted on as-needed basis for breakthrough seizures, signs of toxicity, her questions regarding his antiepileptic medication. X I have reviewed the history and physical on the above patient. I have reviewed the above note, and agree.
[2017-06-01 14:45] LABS: Carbamazepine (Tegretol) 5.2 ug/mL
[2017-06-01] MEDS: IPRATROPIUM-ALBUTEROL 3 ML NEB INHALATION SCH ×2 (16:27→19:37)
[2017-06-01] MEDS: DIVALPROEX 500 MG TABLET.DR PO SCH ×2 (17:52→21:54)
[2017-06-01] MEDS: carBAMazepine 200 MG TAB PO SCH ×2 (17:53→21:54)
[2017-06-01] MEDS: LORazepam 0.5 MG TAB PO SCH (21:53)
[2017-06-01] MEDS: ATORVASTATIN 20 MG TAB PO SCH (21:54)
[2017-06-01] MEDS: FAMOTIDINE 20 MG TAB PO SCH (21:55)
[2017-06-02 06:10] LABS: Basophils % (A) 0 %; CH 30.7; CHCM 32.3; Eosinophils # (A) 0.2 k/uL (0-0.7); Eosinophils % (A) 2 %; HCT 30.6 % (39.0-53.0); HDW 2.67; HGB 9.5 gm/dL (13.0-17.5); Luc # (Auto) 0.23; Luc % (Auto) 3; Lymphocytes # (A) 1.5 k/uL (1.0-4.8); Lymphocytes % (A) 17 %; MCH 29.8 pg (25.0-35.0); MCHC 31.2 g/dL (31.0-37.0); MCV 95.5 fL (80.0-100.0); Mean Platelet Volume 8.9; Monocytes # (A) 0.7 k/uL (0-1.0); Monocytes % (A) 8 %; Neutrophils # (A) 6.3 k/uL (1.3-7.7); Neutrophils % (A) 70 %; RDW 14.3 % (11.5-15.5); WBC (Perox) 9.92
[2017-06-02 06:16] LABS: Anion Gap 8 mmol/L; Blood Urea Nitrogen 5 mg/dL (9-20); Calcium 8.2 mg/dL (8.4-10.2); Carbon Dioxide 26 mmol/L (22-30); Chloride 107 mmol/L (98-107); Glucose 124 mg/dL (74-99); Iron 21 ug/dL (49-181); Non-African American GFR(MDRD) >60 (>60 ml/min/1.73 sqM); Potassium 3.2 mmol/L (3.5-5.1); Sodium 141 mmol/L (137-145)
[2017-06-02 06:26] LABS: % Iron Saturation 10.6 % (20-50); Total Iron Binding Capacity 199 ug/dL (261-462)
[2017-06-02 07:22] LABS: Vitamin B12 202 pg/mL (239-931)
[2017-06-02] MEDS: IPRATROPIUM-ALBUTEROL 3 ML NEB INHALATION SCH ×2 (08:37→12:11)
[2017-06-02] MEDS: FUROSEMIDE 20 MG TAB PO SCH (09:16)
[2017-06-02] MEDS: DOCUSATE 100 MG CAP PO SCH (09:16)
[2017-06-02] MEDS: DIVALPROEX 500 MG TABLET.DR PO SCH (09:17)
[2017-06-02] MEDS: PIPERACILLIN-TAZOBACTAM 3.375 GM in DEXTROSE/WATER 1 50ML.BAG IVPB SCH (09:17)
[2017-06-02] MEDS: carBAMazepine 200 MG TAB PO SCH (09:17)
[2017-06-02] MEDS: LORATADINE 10 MG TAB PO SCH (09:17)
[2017-06-02] MEDS: ENOXAPARIN 30 MG/0.3 ML SYRINGE SQ SCH (09:17)
[2017-06-02] MEDS: SODIUM CHLORIDE 0.9% 1,000 ML IV SCH (09:18)
--- NOTE | 2017-06-02 10:38 | CONS ---
This is a 57-year-old gentleman with a history of previous head injury. Provides no history. Most of his history was obtained from the emergency room physician yesterday, Dr. Davon Casillas. The patient presented to the emergency department with complaints of difficulty breathing. The patient apparently had fever and had some increasing respiratory rate. There may have been some wheezing as well. The patient did receive some Tylenol and/or Motrin for temperature control. Dr. Casillas who saw the patient in the emergency room, was concerned about the possibility of sepsis. The lactic acid was elevated. He initially thought maybe the patient should be admitted to the ICU but the patient's respiratory status seemed to settle in and it was much more stable. In addition, hemodynamically the patient was stable so we thought the patient could be observed and treated more appropriately on the 6th floor. Again, the patient gives us no history. HOME MEDICATIONS: Included Tylenol, albuterol updrafts, Depakote, Colace, Pepcid, Feosol, Lasix, updrafts with Atrovent, Ativan, Loratadine, Milk of Magnesia, K-Dur, Tegretol, prednisone, risperidone, Lipitor and hydrocortisone cream. ALLERGIES: Denied. MEDICAL HISTORY: Includes apparently heart failure, COPD, hypertension, memory impairment, pneumonia, seizure disorder, closed head injury, traumatic brain injury, left hemiparesis, incontinence of stool and urine. No history of any surgical procedures. SOCIAL HISTORY: Positive for previous tobacco use. Occasional alcohol use in the past. No illicit drug use. FAMILY HISTORY: Unable to be obtained. REVIEW OF SYSTEMS: Not able to be obtained. Current vital signs include temperature 98.9, heart rate 96, respiratory rate 20 , blood pressure 146/70, mean of 95. Room air saturation 96%. Appears in no acute distress. Wearing headphones. Nonverbal. HEENT: Grossly unremarkable. Mucous membranes are moist. NECK: Supple. No adenopathy. Neck veins are flat. CARDIOVASCULAR: Reveals regular rhythm and rate. Heart rate 90. S1/S2 normal. LUNGS: Reveal a few scattered rhonchi. No wheezes. No crackles. Cannot take deep breaths. ABDOMEN: Soft. Bowel sounds are heard. EXTREMITIES: Intact. No cyanosis, clubbing or edema. Contractures are noted. Labs are reviewed. White count 10.3, hemoglobin 10.2, hematocrit 32.5, platelet count 239,000. Sodium, potassium, chloride, CO2 all normal. BUN and creatinine were 5 and 0.54. Lactate was 4.8 and then went down to 3.3. Most recent lactate was 0.7. Urine was completely clean. Drug levels were noted. Microbiology was all negative. Medications are reviewed. MEDICATIONS: Currently include Tylenol, albuterol updrafts, Lipitor, Colace, enoxaparin, famotidine, Lasix, haloperidol, hydrocortisone cream, updrafts with ipratropium bromide, DuoNeb, Levaquin, Loratadine, lorazepam, magnesium, Zosyn. Chest x-ray done on May 31 shows low lung volumes and elevated left hemidiaphragm with reticulonodular interstitial changes bilaterally suggesting either interstitial fibrosis and/or infiltrate. A CT scan showed low lung volumes with elevated left hemidiaphragm and scattered areas of moderate to advanced parenchymal fibrosis. No suspicious focal acute infiltrates. ASSESSMENT: 1. Sepsis, of unclear etiology. Likely source given the data so far would be the lung. 2 . History of traumatic brain injury. 3. Nonverbal. 4. History of seizure disorder. 5. History of left hemiparesis. 6. History of congestive heart failure. 7. History of chronic obstructive pulmonary disease. 8. History of hypertension. 9. History of memory impairment. 10. Previous episode of pneumonia. 11. History of seizure disorder. PLAN: Will continue to follow. The patient is on good antibiotics. No additional recommendations are made. Prognosis is guarded. MTDD
[2017-06-02] MEDS ORDERED: FERROUS SULFATE 325 MG TAB PO SCH (11:45)
[2017-06-02] MEDS ORDERED: CYANOCOBALAMIN 1,000 MCG/ML 1 ML VIAL IM SCH (11:45)
[2017-06-02] MEDS ORDERED: AMOXIC-POT CLAV 500-125 MG 1 EACH TAB PO SCH (11:45)
[2017-06-02] MEDS: HYDROCORTISONE 1% CREAM 30 GM TUBE TOPICAL SCH (13:50)
[2017-06-02 13:59] VITALS: BP 118/68; PULSE 110; RESP 20; TEMP 98.1
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
[2017-06-02] MEDS ORDERED: FUROSEMIDE 40 MG TAB PO SCH (16:00)
--- NOTE | 2017-06-02 18:39 | PN ---
He is 5 feet 10 inches, 91 kg weight. PSA 2.09. BMI 28.8. Allergies unknown. The patient admitted through the emergency room with underlying lactic acid elevation and however, subsequently improved today and the level today is 0.7. We will be checking it again tomorrow because of the fluctuation. The patient came with shortness of breath progressively worse with history of temperature. However, when we see her through the admission time, he has no fever and no chills. Today, seeing the patient he was more happier. He had hearing speakers on the hearing and he is happy. He is not aggressive today. His behavior has been markedly unchanged after dropping his Depakote and Tegretol. As of today, his laboratory was indicating that his Tegretol level on admission was 111.8 and today is 78.9 and Carbamazepine was 12.5 and today it is 5.2 which is currently therapeutic. We did ask neurology consultation and neurology consultation was done by the PA of Dr. Ernandez and ( ) Dr. Toño Roger and the consult was indicating that the patient has left hemiparesis chronic and also he has seizure disorder chronic. He had suspected pneumonia, however, the CT scan and the chest x-ray showed interstitial lung fibrosis. He has sepsis and we thought that this elevation of the lactic acid from the medication of Tegretol and Depakote and he had history of stroke, right hemisphere stroke in the past. His recommendations of the PA that he said that this level was mildly elevated and the patient had no breakthrough seizure and recommending to start back the medication and if he has seizure, we will be calling him. He stated also that the EEG would not be helpful as the patients general condition. Continuation: We did also with interstitial lung disease and fibrosis and the thought of sepsis and pneumonia, consultation with Dr. Pacheco, however, is really not noted yet and no dictation for Dr. Pacheco to see his opinion so far. Today, as the patient is examined, temperature 98 axillary. Pulse rate 98. Respiratory rate 18. Blood pressure 130/76. The mean blood pressure is 94 and oxygen on room air, 95. The laboratory indicating that white count is improved to 10.3. He has decrease in hemoglobin to 10.2 with indication of hydration and probably he was maybe on the dehydrated volume side. His INR is normal at 1.1. His electrolytes indicating potassium 3.6, sodium 142, carbon dioxide 30 and BUN 5 and creatinine 0.54 with blood sugar 96. AST 14, ALT 22 and total protein 6.7 and albumin 4.1. His urine was sent and urine was evaluated and so far no positivity for any abnormality to indicate the sepsis secondary to infection. The platelet count is normal. His white count was 13.1 yesterday and today is 10.3. hemoglobin 12.7 and today 10.2 with the 2.5 gram of ( ) probably dehydration. His glomerular filtration rate estimated for non- is more than 60. As mentioned earlier, his lactic acid today is 0.7. Depakote level, was 38.9 and Carbamazepine 5.2. On the physical examination today, general he is stable. He is happier. He is able to answer mostly without bad wording or aggressive behavior. He did not receive any Haldol through the evening or night with the order already written but the patient did not receive any of this. He is currently comfortable and breathing fine. On physical examination, he still has problem with his gum and the teeth but he needs help for eating with left hemiplegia. The neck was suppled and the chest was inspiratory rhonchi with history of interstitial lung disease and heart was regular sinus rhythm. The EKG was sinus tachycardia on admission with ST-T wave abnormality but subsequently the heart rate is normalized and currently his heart rate has been in the 90s. Respiratory rate is 20 per minute. Blood pressure 107/68 that repeat earlier was 130/76. The abdomen is soft, positive bowel sounds, extremities as mentioned earlier he had left hemiplegia and he is unable to ambulate. Currently he is on ABG prophylaxis as well and he is with the underlying history as assessment. ASSESSMENT: 1. Lactic acid improved. 2. Underlying abnormal Depakote and Tegretol associated with increased lactic acids. No so far evidence of sepsis. We will see Dr. Cook opinion when he sees him. 3. Currently the patient was on two antibiosis and we discontinue the Levofloxacin and continued with the piperacillin ( ). Probably tomorrow we will be discontinuing it if Dr. Pacheco, after evaluation by Dr. Pacheco and having his opinion. 4. He is on hydration right now 100 mL and hour with no evidence of abnormality and recovery from the elevated Lactic acid. 5. Anemia, with drop and he probably has dehydration with volume contraction. 6. Plan to repeat Depakote level as well as Tegretol level tomorrow as well. 7. See the opinion of Dr. Pacheco or pulmonary for the interstitial lung fibrosis and if anything needs to be added as well and probably further if there is no adding, we will be able to discharge the patient in 24 to 48 hours. We will also check ( ). We checked for the iron if he has iron deficiency or Vitamin B12 deficiency or folic acid deficiency with the current medication. As the patient is improving and stability ( ). MTDD
== END 2017-06-02 15:58 | disposition home or self-care (01) | DRG 871 ==
LOC: EC 14:26 → EEVIPCON 14:26 → 6SEL 16:42
PROVIDERS: ADMIT Internal Medicine; ATTEND Internal Medicine
DX: A41.9 Sepsis, unspecified organism (principal); J69.0 Pneumonitis due to inhalation of food and vomit; I11.0 Hypertensive heart disease with heart failure; J84.112 Idiopathic pulmonary fibrosis; I50.9 Heart failure, unspecified; I69.354 Hemiplegia and hemiparesis following cerebral infarction affecting left non-dominant side; G40.909 Epilepsy, unspecified, not intractable, without status epilepticus; F32.9 Major depressive disorder, single episode, unspecified; J98.6 Disorders of diaphragm; E86.0 Dehydration; D64.9 Anemia, unspecified; J44.9 Chronic obstructive pulmonary disease, unspecified; Z79.52 Long term (current) use of systemic steroids; Z79.899 Other long term (current) drug therapy; Z87.820 Personal history of traumatic brain injury; Z87.891 Personal history of nicotine dependence
CPT/HCPCS: 36415; 71010; 71020; 71250; 80048; 80053; 80156; 80164; 81003; 82607; 82746; 83540; 83550; 83605; 84443; 85025; 85610; 85730; 87040; 87086; 93005; 94640; 96361; 96365; 99291

== ENCOUNTER 2017-06-05 23:35 | Inpatient (IN) | payer OTHER ==
[2017-06-06] MEDS ORDERED: SODIUM CHLORIDE 0.9% 1,000 ML IV STA (00:06)
[2017-06-06] MEDS ORDERED: IBUPROFEN 600 MG TAB PO STA (00:06)
--- NOTE | 2017-06-06 00:27 | ED ---
General Adult HPI - General Source: patient, EMS, RN notes reviewed Mode of arrival: EMS Limitations: no limitations <Alysha Toribio - Last Filed: 06/06/17 02:32> <Ish Jones - Last Filed: 06/06/17 07:29> - General Chief complaint: Fever Stated complaint: FEVER Time Seen by Provider: 06/06/17 00:06 - History of Present Illness Initial comments: Patient is a poor historian. Patient has no complaints for me in the room. History from nurse which was received from EMS patient presents for fevers. EMS states there is as well 1. He does have a history of being admitted to the hospital for sepsis about a week ago. We will states that he's continued to have the fever so they were concerned. Patient has no complaints. Patient continues to swear at me. Unable to assess for review of systems he denies everything. (Alysha Toribio) - Related Data Home Medications Medication Instructions Recorded Confirmed Acetaminophen Tab [Tylenol] 1,000 mg PO Q6HR PRN 10/04/16 06/05/17 Albuterol Nebulized [Ventolin 2.5 mg INHALATION RT-QID PRN 10/04/16 06/05/17 Nebulized] Divalproex Sodium [Depakote] 500 mg PO QID@,,,10/04/16 06/05/17 Docusate [Colace] 200 mg PO BID@08,199910/04/16 06/05/17 Ipratropium Nebulized [Atrovent 0.5 mg INHALATION RT-QID PRN 10/04/16 06/05/17 Nebulized] LORazepam [Ativan] 1 mg PO TID PRN 10/04/16 06/05/17 Loratadine 10 mg PO DAILY@0800 10/04/16 06/05/17 Magnesium Hydroxide [Milk of 2,400 mg PO HS PRN 10/04/16 06/05/17 Magnesia] Potassium Chloride ER [K-Dur 10] 10 meq PO BID@799,199910/04/16 06/05/17 carBAMazepine [TEGretol] 400 mg PO TID@0800,1399,199910/04/16 06/05/17 Atorvastatin [Lipitor] 20 mg PO HS@199905/31/17 06/05/17 Hydrocortisone Cream 1 applic TOPICAL BID@0800,199905/31/17 06/05/17 [Hydrocortisone 1% Cream] Amoxic-Pot Clav 500-125 mg 1 tab PO BID@0800,199906/05/17 06/05/17 [Augmentin 500-125 mg] Cyanocobalamin [Vitamin B-12 1,000 mcg IM WE@0800 06/05/17 06/05/17 Injection] Divalproex Sodium [Depakote 125 mg PO QID@08,,,06/05/17 06/05/17 Sprinkle] Ferrous Sulfate [Iron (65 MG 325 mg PO AC-BID@0800,199906/05/17 06/05/17 Elemental)] Furosemide [Lasix] 60 mg PO BID@0900,1600 06/05/17 06/05/17 Sennosides-Docusate Sodium 1 tab PO TID@0800,1400,199906/05/17 06/05/17 [Senokot-S] risperiDONE [RisperDAL] 1 mg PO QID@08,,16,06/05/17 06/05/17 Previous Rx's Medication Instructions Recorded Enoxaparin [Lovenox] 30 mg SQ DAILY #14 syr 06/02/17 Allergies Allergy/AdvReac Type Severity Reaction Status Date / Time No Known Allergies Allergy Verified 06/05/17 23:47 Review of Systems ROS Other: All systems not noted in ROS Statement are negative. <Alysha Toribio - Last Filed: 06/06/17 02:32> ROS Other: All systems not noted in ROS Statement are negative. <Ish Jones - Last Filed: 06/06/17 07:29> ROS Statement: Those systems with pertinent positive or pertinent negative responses have been documented in the HPI. 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 History of Any Multi-Drug Resistant Organisms: Unobtainable Past Surgical History: Unable to Obtain Additional Past Surgical History / Comment(s): BARSS RESIDENTAL Past Anesthesia/Blood Transfusion Reactions: Unable to Obtain Past Psychological History: Depression Smoking Status: Former smoker Past Alcohol Use History: Occasional Past Drug Use History: None Reported - Past Family History Father Family Medical History: Unable to Obtain Mother Family Medical History: Unable to Obtain <Alysha Toribio - Last Filed: 06/06/17 02:32> General Exam Limitations: no limitations General appearance: alert, in no apparent distress Head exam: Present: atraumatic, normocephalic, normal inspection Eye exam: Present: normal appearance, PERRL ENT exam: Present: normal exam, mucous membranes moist Neck exam: Present: normal inspection. Absent: tenderness Respiratory exam: Present: normal lung sounds bilaterally. Absent: respiratory distress, wheezes, rales, rhonchi, stridor Cardiovascular Exam: Present: regular rate, normal rhythm, normal heart sounds. Absent: systolic murmur, diastolic murmur, rubs, gallop, clicks GI/Abdominal exam: Present: soft, normal bowel sounds. Absent: distended, tenderness, guarding, rebound, rigid Neurological exam: Present: alert Psychiatric exam: Present: normal affect, normal mood Skin exam: Present: warm, dry, intact, normal color. Absent: rash <Alysha Toribio - Last Filed: 06/06/17 02:32> Medical Decision Making - Lab Data Result diagrams: 06/06/17 00:25 06/06/17 00:25 <Alysha Toribio - Last Filed: 06/06/17 02:32> - Lab Data Result diagrams: 06/06/17 00:25 06/06/17 00:25 <Ish Jones - Last Filed: 06/06/17 07:29> - Medical Decision Making 57-year-old male presents for evaluation of fever. Patient did have a low- grade temperature on arrival with an elevated white count of 11. This time there is concern for possible pneumonia. At this time we did discuss the case with Dr. Robles who does agree to the admission. We'll start patient on pneumonia criteria. Patient is negative plan. (Alysha Toribio) I saw this patient in conjunction with the physician teacher's assistant. I performed independent history and physical exam. Agree with case management. (Ish Jones) - Lab Data Lab Results 0806/06/17 06/06/17 Range/Units 00:25 00:25 00:25 WBC 11.0 H (3.8-10.6) k/uL RBC 3.45 L (4.30-5.90) m/uL Hgb 10.5 L (13.0-17.5) gm/dL Hct 32.7 L (39.0-53.0) % MCV 94.8 (80.0-100.0) fL MCH 30.3 (25.0-35.0) pg MCHC 32.0 (31.0-37.0) g/dL RDW 14.7 (11.5-15.5) % Plt Count 377 (150-450) k/uL Neutrophils % 65 % Lymphocytes % 21 % Monocytes % 9 % Eosinophils % 2 % Basophils % 0 % Neutrophils # 7.1 (1.3-7.7) k/uL Lymphocytes # 2.3 (1.0-4.8) k/uL Monocytes # 1.0 (0-1.0) k/uL Eosinophils # 0.2 (0-0.7) k/uL Basophils # 0.1 (0-0.2) k/uL Sodium 142 (137-145) mmol/L Potassium 3.9 (3.5-5.1) mmol/L Chloride 104 (98-107) mmol/L Carbon Dioxide 29 (22-30) mmol/L Anion Gap 9 mmol/L BUN 11 (9-20) mg/dL Creatinine 0.50 L (0.66-1.25) mg/dL Est GFR (MDRD) Af Amer >60 (>60 ml/min/1.73 sqM) Est GFR (MDRD) Non-Af >60 (>60 ml/min/1.73 sqM) Glucose 101 H (74-99) mg/dL Plasma Lactic Acid Hermes 1.7 (0.7-2.0) mmol/L Calcium 8.9 (8.4-10.2) mg/dL Total Bilirubin 0.3 (0.2-1.3) mg/dL AST 20 (17-59) U/L ALT 33 (21-72) U/L Alkaline Phosphatase 87 (38-126) U/L Total Protein 5.8 L (6.3-8.2) g/dL Albumin 3.3 L (3.5-5.0) g/dL Urine Color Urine Appearance (Clear) Urine pH (5.0-8.0) Ur Specific [place] (1.001-1.035) Urine Protein (Negative) Urine Glucose (UA) (Negative) Urine Ketones (Negative) Urine Blood (Negative) Urine Nitrite (Negative) Urine Bilirubin (Negative) Urine Urobilinogen (<2.0) mg/dL Ur Leukocyte Esterase (Negative) Urine RBC (0-5) /hpf Urine WBC (0-5) /hpf Urine Bacteria (None) /hpf Urine Mucus (None) /hpf 06/06/17 Range/Units 01:40 WBC (3.8-10.6) k/uL RBC (4.30-5.90) m/uL Hgb (13.0-17.5) gm/dL Hct (39.0-53.0) % MCV (80.0-100.0) fL MCH (25.0-35.0) pg MCHC (31.0-37.0) g/dL RDW (11.5-15.5) % Plt Count (150-450) k/uL Neutrophils % % Lymphocytes % % Monocytes % % Eosinophils % % Basophils % % Neutrophils # (1.3-7.7) k/uL Lymphocytes # (1.0-4.8) k/uL Monocytes # (0-1.0) k/uL Eosinophils # (0-0.7) k/uL Basophils # (0-0.2) k/uL Sodium (137-145) mmol/L Potassium (3.5-5.1) mmol/L Chloride (98-107) mmol/L Carbon Dioxide (22-30) mmol/L Anion Gap mmol/L BUN (9-20) mg/dL Creatinine (0.66-1.25) mg/dL Est GFR (MDRD) Af Amer (>60 ml/min/1.73 sqM) Est GFR (MDRD) Non-Af (>60 ml/min/1.73 sqM) Glucose (74-99) mg/dL Plasma Lactic Acid Hermes (0.7-2.0) mmol/L Calcium (8.4-10.2) mg/dL Total Bilirubin (0.2-1.3) mg/dL AST (17-59) U/L ALT (21-72) U/L Alkaline Phosphatase (38-126) U/L Total Protein (6.3-8.2) g/dL Albumin (3.5-5.0) g/dL Urine Color Yellow Urine Appearance Clear (Clear) Urine pH 6.5 (5.0-8.0) Ur Specific [place] 1.020 (1.001-1.035) Urine Protein Trace H (Negative) Urine Glucose (UA) Negative (Negative) Urine Ketones 1+ H (Negative) Urine Blood Trace H (Negative) Urine Nitrite Negative (Negative) Urine Bilirubin Negative (Negative) Urine Urobilinogen 4.0 (<2.0) mg/dL Ur Leukocyte Esterase Negative (Negative) Urine RBC 6 H (0-5) /hpf Urine WBC 1 (0-5) /hpf Urine Bacteria Rare H (None) /hpf Urine Mucus Rare H (None) /hpf Disposition Time of Disposition: 02:32 Decision Date: 06/06/17 Decision Time: 02:32 <Alysha Toribio - Last Filed: 06/06/17 02:32> <Ish Jones - Last Filed: 06/06/17 07:29> Clinical Impression: Pneumonia Disposition: ADMITTED IP TO THIS HOSP Condition: Stable
[2017-06-06 00:50] LABS: ALT 33 U/L (21-72); AST 20 U/L (17-59); Alkaline Phosphatase 87 U/L (38-126); Anion Gap 9 mmol/L; Blood Urea Nitrogen 11 mg/dL (9-20); Calcium 8.9 mg/dL (8.4-10.2); Carbon Dioxide 29 mmol/L (22-30); Chloride 104 mmol/L (98-107); Glucose 101 mg/dL (74-99); Non-African American GFR(MDRD) >60 (>60 ml/min/1.73 sqM); Potassium 3.9 mmol/L (3.5-5.1); Sodium 142 mmol/L (137-145); Total Bilirubin 0.3 mg/dL (0.2-1.3); Total Protein 5.8 g/dL (6.3-8.2)
[2017-06-06 00:53] LABS: Basophils # (A) 0.1 k/uL (0-0.2); Basophils % (A) 0 %; CH 30.6; CHCM 32.5; Eosinophils # (A) 0.2 k/uL (0-0.7); Eosinophils % (A) 2 %; HCT 32.7 % (39.0-53.0); HDW 2.91; HGB 10.5 gm/dL (13.0-17.5); Luc # (Auto) 0.28; Luc % (Auto) 3; Lymphocytes # (A) 2.3 k/uL (1.0-4.8); Lymphocytes % (A) 21 %; MCH 30.3 pg (25.0-35.0); MCV 94.8 fL (80.0-100.0); Mean Platelet Volume 7.6; Monocytes % (A) 9 %; Neutrophils # (A) 7.1 k/uL (1.3-7.7); Neutrophils % (A) 65 %; RBC 3.45 m/uL (4.30-5.90); RDW 14.7 % (11.5-15.5); WBC (Perox) 11.37
--- NOTE | 2017-06-06 01:43 | XR ---
EXAM: XR Chest, 2 Views CLINICAL HISTORY: Reason: fever TECHNIQUE: Frontal and lateral views of the chest. COMPARISON: Chest x-ray 06/01/17 1347 FINDINGS: Lungs: Hypoventilatory lungs. Pleural space: Diffuse interstitial changes are unchanged from prior study. No definite pleural effusion. No pneumothorax. Heart: Unremarkable. No cardiomegaly. Mediastinum: Unremarkable. Bones/joints: Degenerative changes left shoulder. Upper abdomen: Elevated left hemidiaphragm. IMPRESSION: Stable interstitial changes. Cannot exclude mild superimposed edema or pneumonitis.
[2017-06-06 01:53] LABS: Appearance,Urine Clear (Clear); Bacteria,Urine Rare /hpf; Bilirubin,Urine Negative (Negative); Glucose,Urine (UA) Negative (Negative); Ketones,Urine 1+ (Negative); Leukocyte Esterase,Urine Negative (Negative); Mucus,Urine Rare /hpf; Nitrite,Urine Negative (Negative); PH, Urine 6.5 (5.0-8.0); Particle Count 1779; Protein,Urine Trace (Negative); RBC,Urine 6 /hpf (0-5); UA Billing (MACRO vs. MICRO) MICRO; WBC,Urine 1 /hpf (0-5)
[2017-06-06] MEDS ORDERED: PNEUMONIA PROTOCOL UTILIZED 1 EACH MISC PO PRN (02:32)
[2017-06-06] MEDS ORDERED: IPRATROPIUM-ALBUTEROL 3 ML NEB INHALATION PRN (02:32)
[2017-06-06] MEDS ORDERED: LEVOFLOXACIN 750MG-D5W PMX 750 MG in DEXTROSE/WATER 1 150ML.BAG IVPB STA (02:32)
[2017-06-06] MEDS ORDERED: MAGNESIUM HYDROXIDE 2,400 MG/10 ML CUP PO PRN (02:34)
[2017-06-06] MEDS ORDERED: LORazepam 1 MG TAB PO PRN (02:34)
[2017-06-06] MEDS: SODIUM CHLORIDE 0.9% 1,000 ML IV SCH ×2 (02:52→14:59)
[2017-06-06] MEDS: POTASSIUM CHLORIDE ER 10 MEQ TAB.ER.PRT PO SCH ×2 (08:36→20:08)
[2017-06-06] MEDS: risperiDONE 1 MG TAB PO SCH ×4 (08:36→20:07)
[2017-06-06] MEDS: FUROSEMIDE 20 MG TAB PO SCH ×2 (08:36→14:59)
[2017-06-06] MEDS: DIVALPROEX 500 MG TABLET.DR PO SCH ×4 (08:36→20:07)
[2017-06-06] MEDS: DOCUSATE 100 MG CAP PO SCH ×2 (08:36→20:07)
[2017-06-06] MEDS: DIVALPROEX SPRINKLE 125 MG CAP.SPRINK PO SCH ×4 (08:36→20:08)
[2017-06-06] MEDS: SENNOSIDES-DOCUSATE SODIUM 1 EACH TAB PO SCH ×3 (08:36→20:08)
[2017-06-06] MEDS: LORATADINE 10 MG TAB PO SCH (08:36)
[2017-06-06] MEDS: ENOXAPARIN 30 MG/0.3 ML SYRINGE SQ SCH (08:37)
[2017-06-06] MEDS: carBAMazepine 200 MG TAB PO SCH ×3 (08:37→20:08)
[2017-06-06] MEDS: PIPERACILLIN-TAZOBACTAM 3.375 GM in DEXTROSE/WATER 1 50ML.BAG IVPB SCH ×3 (08:37→23:10)
[2017-06-06] MEDS: AMOXIC-POT CLAV 500-125 MG 1 EACH TAB PO SCH ×2 (08:37→20:08)
[2017-06-06] MEDS: FERROUS SULFATE 325 MG TAB PO SCH ×2 (08:38→20:07)
[2017-06-06] MEDS: HYDROCORTISONE 1% CREAM 30 GM TUBE TOPICAL SCH ×2 (08:38→20:08)
[2017-06-06 09:18] LABS: Carbamazepine (Tegretol) 5.3 ug/mL
[2017-06-06] MEDS: ATORVASTATIN 20 MG TAB PO SCH (20:07)
[2017-06-07] MEDS: SODIUM CHLORIDE 0.9% 1,000 ML IV SCH ×3 (03:57→18:45)
[2017-06-07 08:09] LABS: Basophils % (A) 0 %; CH 30.4; CHCM 31.6; Eosinophils # (A) 0.2 k/uL (0-0.7); Eosinophils % (A) 2 %; HCT 32.5 % (39.0-53.0); HDW 2.75; Hypochromasia Slight; Luc # (Auto) 0.24; Luc % (Auto) 3; Lymphocytes # (A) 1.7 k/uL (1.0-4.8); Lymphocytes % (A) 19 %; MCH 29.7 pg (25.0-35.0); MCHC 30.7 g/dL (31.0-37.0); MCV 96.7 fL (80.0-100.0); Mean Platelet Volume 7.6; Monocytes # (A) 0.9 k/uL (0-1.0); Monocytes % (A) 11 %; Neutrophils # (A) 5.8 k/uL (1.3-7.7); Neutrophils % (A) 66 %; RBC 3.36 m/uL (4.30-5.90); RDW 14.7 % (11.5-15.5); Reticulocyte % 2.3 % (0.5-2.0); WBC 8.9 k/uL (3.8-10.6); WBC (Perox) 9.22
[2017-06-07] MEDS: PIPERACILLIN-TAZOBACTAM 3.375 GM in DEXTROSE/WATER 1 50ML.BAG IVPB SCH ×3 (08:19→23:53)
[2017-06-07] MEDS: ACETAMINOPHEN TAB 500 MG TAB PO PRN (08:19)
[2017-06-07] MEDS: FUROSEMIDE 20 MG TAB PO SCH ×2 (08:21→15:34)
[2017-06-07] MEDS: ENOXAPARIN 30 MG/0.3 ML SYRINGE SQ SCH (08:21)
[2017-06-07] MEDS: risperiDONE 1 MG TAB PO SCH ×4 (08:22→20:30)
[2017-06-07] MEDS: carBAMazepine 200 MG TAB PO SCH ×3 (08:22→20:30)
[2017-06-07] MEDS: LEVOFLOXACIN 750 MG TAB PO SCH (08:22)
[2017-06-07] MEDS: SENNOSIDES-DOCUSATE SODIUM 1 EACH TAB PO SCH ×3 (08:22→21:21)
[2017-06-07] MEDS: DIVALPROEX 500 MG TABLET.DR PO SCH ×4 (08:23→20:31)
[2017-06-07] MEDS: POTASSIUM CHLORIDE ER 10 MEQ TAB.ER.PRT PO SCH ×2 (08:23→20:30)
[2017-06-07] MEDS: FERROUS SULFATE 325 MG TAB PO SCH ×2 (08:23→20:31)
[2017-06-07] MEDS: AMOXIC-POT CLAV 500-125 MG 1 EACH TAB PO SCH ×2 (08:23→20:31)
[2017-06-07] MEDS: LORATADINE 10 MG TAB PO SCH (08:23)
[2017-06-07] MEDS: DOCUSATE 100 MG CAP PO SCH ×2 (08:23→20:29)
[2017-06-07] MEDS: DIVALPROEX SPRINKLE 125 MG CAP.SPRINK PO SCH ×4 (08:24→20:30)
[2017-06-07] MEDS: HYDROCORTISONE 1% CREAM 30 GM TUBE TOPICAL SCH ×2 (08:24→20:32)
--- NOTE | 2017-06-07 09:35 | XR ---
EXAMINATION TYPE: XR chest 1V DATE OF EXAM: 06/07/2017 COMPARISON: 06/06/2017 HISTORY: 57-year-old male follow-up pneumonia TECHNIQUE: Single frontal view of the chest is obtained. FINDINGS: Continued elevation of the left hemidiaphragm. Diffuse reticulonodular interstitial densit ies. Left heart margin obscured by the elevated hemidiaphragm. Degenerative changes of both shoulders . IMPRESSION: 1. Similar reticulonodular interstitial densities, correlate for underlying pneumoconiosis or chronic pulmonary fibrosis. Superimposed atypical infections or pulmonary vascular congestion can be correla rishi for clinically. 2. Continued elevation of the left hemidiaphragm.
[2017-06-07 10:45] LABS: Erythrocyte Sedimentation Rate 68 mm/hr (0-15)
[2017-06-07 12:06] LABS: Anion Gap 8 mmol/L; Blood Urea Nitrogen 7 mg/dL (9-20); Calcium 8.3 mg/dL (8.4-10.2); Carbon Dioxide 27 mmol/L (22-30); Chloride 109 mmol/L (98-107); Glucose 89 mg/dL (74-99); Non-African American GFR(MDRD) >60 (>60 ml/min/1.73 sqM); Potassium 3.7 mmol/L (3.5-5.1); Sodium 144 mmol/L (137-145)
--- NOTE | 2017-06-07 16:14 | HP ---
ATTENDING PHYSICIAN: Dr. Alexander Bhandari ADMITTING PHYSICIAN: Dr. Doron Robles The patient was admitted to Dr. Bhandari's service, however, in his absence Dr. Robles is taking care of the patient. HISTORY OF PRESENT ILLNESS: This 57-year-old male was transferred back to this hospital because of running a low grade fever at the nursing facility. The patient lives at a foster assisted, [facility]. The patient has had a previous head injury and apparently reported to have low grade fevers. He was recently hospitalized and discharged from this hospital. He, at that time, had been evaluated and treated for fever. It was initially felt that the patient was septic, however, no clear evidence of sepsis was noted. Working diagnosis at that time was possible respiratory infection, however, CAT scan of the chest did not reveal any significant changes except for reticular pattern. The pateint is a very poor historian, all he says is cursing words constantly and a very abuse language. Difficult to obtain any history from the patient. Reviewed previous records including the record from the last visit. The patient was seen by both neurology, ID and the primary care physician, Dr. Cabrera. The patient has not reported to have any significant cough, congestion or urinary tract infection or bed sores. PAST MEDICAL HISTORY: Obtained from the old records, suggest patient has had previous history of seizures on medical therapy for the same, previous head injury, previous CVA affecting the left side. Past history includes history of COPD, hypertension, reported CHF, pneumonia, seizure disorder and elevated left hemidiaphragm. PAST SURGICAL HISTORY: None available. ALLERGIES: No known allergies. MEDICATIONS AT HOME: 1. Risperdal 1 gm q.i.d. 2. Tegretol 400 mg t.i.d. 3. Senokot-S one t.i.d. 4. Potassium chloride 10 mEq b.i.d. 5. Milk of Magnesia 24 mg p.r.n. 6. Loratin 10 mg daily. 7. Lorazepam 1 mg p.r.n. t.i.d. 8. Atrovent updraft q.i.d. 9. Hydrocortisone cream b.i.d. 10. Lasix 60 mg b.i.d. 11. Ferrous sulfate 325 mg a.c. b.i.d. 12. Depakote 500 mg q.i.d. 13. Depakote sprinkle 125 mg q.i.d. 14. Cyanocobalamin 1000 mcg intramuscularly every Friday. 15. Lipitor 20 mg daily. 16. Augmentin 500/125 b.i.d. 17. Albuterol. 18. Acetaminophen. SOCIAL HISTORY: The patient at the foster care facility. FAMILY MEDICAL HISTORY: Not available. REVIEW OF SYSTEMS: Not available. Patient using very abusive language. PHYSICAL EXAMINATION: 57-year-old gentleman in no distress. VITAL SIGNS: Temperature 98.5 oral, pulse 84, respirations 18, blood pressure 122/76, pulse ox 94% on 2 liters. HEENT: Normocephalic. Pupils are reactive. Nostrils clear. Oral cavity, poor dentition. Oral cavity is moist. NECK: Decreased range of motion. There was no JVD, no carotid bruit, no thyromegaly. CHEST: Clear to auscultation with marked decreased airflow at the left base. CARDIAC: Distant heart sounds S1/S2 with no gallops. Systolic murmur 2/6 left sternal border. ABDOMEN: Soft. Bowel sounds active. EXTREMITIES: Reveal no edema. The patient does have a foot drop on the left side. NEUROLOGIC: Poor cognitive function. Left side marked rigidity. Right side some range of motion but some rigidity. Deep tendon reflexes increased left side. The foot has a drop, plantar. Bilateral ( ). SKIN: No obvious breakdown. LABORATORY ASSESSMENT: Mildly elevated white count of 11,000, hemoglobin 12, 10.5. Indices are normal. Electrolytes are normal. BUN 11, creatinine 0.5. Glucose 101, albumin 3.3. Urinalysis has 1+ ketones, otherwise unremarkable. Valproic acid 44.2 and carbamazepine 5.3. ASSESSMENT: 1. Low grade fever, etiology undetermined. 2. Chest x-ray with reticular pattern. 3. Status post head injury. 4. Mild cognitive impairment. 5. Bandemia. PLAN: Continue present medical regimen. Patient's condition is guarded. Prognosis guarded. Source of fever is undetermined. Will continue patient on Zosyn and Levaquin for appropriate coverage. Await culture results. MTDD
[2017-06-07] MEDS: ATORVASTATIN 20 MG TAB PO SCH (20:31)
[2017-06-07 22:26] LABS: Glucose,Whole Blood 132 mg/dL (75-99)
[2017-06-08] MEDS: ACETAMINOPHEN TAB 500 MG TAB PO PRN (02:10)
[2017-06-08] MEDS: SODIUM CHLORIDE 0.9% 1,000 ML IV SCH ×2 (06:07→19:57)
[2017-06-08] MEDS: PIPERACILLIN-TAZOBACTAM 3.375 GM in DEXTROSE/WATER 1 50ML.BAG IVPB SCH ×3 (09:35→23:31)
[2017-06-08] MEDS: LEVOFLOXACIN 750 MG TAB PO SCH (09:36)
[2017-06-08] MEDS: FUROSEMIDE 20 MG TAB PO SCH ×2 (09:36→19:59)
[2017-06-08] MEDS: risperiDONE 1 MG TAB PO SCH ×4 (09:36→20:33)
[2017-06-08] MEDS: ENOXAPARIN 30 MG/0.3 ML SYRINGE SQ SCH (09:37)
[2017-06-08] MEDS: SENNOSIDES-DOCUSATE SODIUM 1 EACH TAB PO SCH ×3 (09:37→20:33)
[2017-06-08] MEDS: DOCUSATE 100 MG CAP PO SCH ×2 (09:37→20:33)
[2017-06-08] MEDS: POTASSIUM CHLORIDE ER 10 MEQ TAB.ER.PRT PO SCH ×2 (09:37→20:32)
[2017-06-08] MEDS: LORATADINE 10 MG TAB PO SCH (09:37)
[2017-06-08] MEDS: carBAMazepine 200 MG TAB PO SCH ×3 (09:38→20:32)
[2017-06-08] MEDS: DIVALPROEX 500 MG TABLET.DR PO SCH ×4 (09:38→20:33)
[2017-06-08] MEDS: DIVALPROEX SPRINKLE 125 MG CAP.SPRINK PO SCH ×4 (09:39→20:34)
[2017-06-08] MEDS: FERROUS SULFATE 325 MG TAB PO SCH ×2 (09:40→20:34)
[2017-06-08] MEDS: HYDROCORTISONE 1% CREAM 30 GM TUBE TOPICAL SCH ×2 (09:40→20:35)
[2017-06-08] MEDS ORDERED: IOHEXOL 350 MG/ML 25 ML BOTTLE (ORAL USE) PO PRN (12:29)
[2017-06-08] MEDS ORDERED: RX INFO: IV CONTRAST WAS GIVEN 1 EACH MISC MISCELLANE PRN (12:29)
--- NOTE | 2017-06-08 14:19 | P.PN ---
Subjective Principal diagnosis: Fever History present illness: This 57-year-old was admitted to the facility due to continued low-grade fever at the nursing facility. The patient appears to be better he is not as belligerent and is more cooperative. Continues to have a low-grade temperature. Blood cultures negative so far. No evidence of urinary tract infection. We will do a CAT scan of the abdomen and pelvis to rule out any other pathology. Patient has had a previous head injury with left hemiparesis and mental retardation REVIEW OF SYSTEMS: Neuro:[ Denies any headaches dizziness.] Psych: Intermittent abusive language Cardiac: Denies chest pain Respiratory: [ no cough]. GI: [Denies nausea vomiting or abdominal pain. No diarrhea or constipation, no bowel movement yet.] :[ Denies dysuria hematuria.] Extremities:[ Denies pain. No edema.] Skin:[ Intact]. Constitutional: [low grade fever, ] Objective - Vital Signs Vital signs: Vital Signs Temp 97.6 F 06/08/17 07:00 Pulse 94 06/08/17 07:00 Resp 20 06/08/17 07:00 BP 156/101 06/08/17 07:00 Pulse Ox 95 06/08/17 07:00 Intake & Output 06/07/17 06/08/17 06/08/17 18:59 06:59 18:59 Intake Total 236 240 118 Balance 236 240 118 Weight 74.843 kg Intake: Oral 236 240 118 Other: Voiding Method Diaper Diaper Diaper # Voids 6 2 # Bowel Movements 0 PHYSICAL EXAMINATION: Cooperative, at present in no acute distress. HEENT: Neck decreased range of motion no lymph nodes Chest: Clear to auscultation Cardiac: Normal S1-S2 no gallops no murmur . Abdomen: Soft bowel sounds present. Extremities: No edema no tenderness Neurologically: Awake, alert, . - Labs CBC & Chem 7: 06/07/17 07:18 06/07/17 07:18 Labs: Abnormal Lab Results - Last 24 Hours (Table) 06/07/17 Range/Units 22:25 POC Glucose (mg/dL) 132 H (75-99) mg/dL Microbiology - Last 24 Hours (Table) 06/06/17 00:25 Blood Culture - Preliminary Blood No Growth after 48 hours 06/06/17 01:40 Urine Culture - Final Urine,Catheterized Assessment and Plan Plan: ASSESSMENT: 1. Continued low-grade fever with no clear source. 2. Cognitive impairment. 3. Previous head injury. 4. Old CVA with left hemiparesis. PLAN: Continue present medical regimen. We will get a CAT scan of the abdomen and pelvis to rule out any other pathology for his continued low-grade fever. The patient otherwise seems to be pretty alert to the CAT scan of the negative may consider sending the patient back to the nursing facility with continued use of Tylenol as needed.
--- NOTE | 2017-06-08 19:54 | CT ---
EXAMINATION TYPE: CT abdomen pelvis w con DATE OF EXAM: 06/08/2017 COMPARISON: NONE HISTORY: Fever. CT DLP: 1745.10 mGycm Automated exposure control for dose reduction was used. TECHNIQUE: Helical acquisition of images was performed from the lung bases through the pelvis. CONTRAST: Performed without Oral Contrast and with IV Contrast, patient injected with 100 mL of Omnipaque 300. FINDINGS: LUNG BASES: Small bilateral pleural effusions are noted. Several calcifications are identified in the periphery of the right lower lobe. LIVER/GB: No significant abnormality is appreciated. PANCREAS: No significant abnormality is seen. SPLEEN: No significant abnormality is seen. ADRENALS: No significant abnormality is seen. KIDNEYS: No significant abnormality is seen. FREE AIR: No free air is visualized. RETROPERITONEAL ADENOPATHY: None visualized REPRODUCTIVE ORGANS: No significant abnormality is seen URINARY BLADDER: No significant abnormality is seen. PELVIC ADENOPATHY: None visualized. OSSEOUS STRUCTURES: No significant abnormality is seen. BOWEL: No significant abnormality is seen. The appendix is visualized, and is normal. OTHER: There is metallic focus in the right hemipelvis which is of unknown etiology. IMPRESSION: SOURCE OF THE PATIENT'S FEVER IS NOT IDENTIFIED. EXAMINATION OF THE ABDOMEN AND PELVIS IS UNREMARKABL E.
[2017-06-08] MEDS: ATORVASTATIN 20 MG TAB PO SCH (20:34)
[2017-06-09] MEDS: SODIUM CHLORIDE 0.9% 1,000 ML IV SCH ×2 (05:39→17:12)
[2017-06-09] MEDS: carBAMazepine 200 MG TAB PO SCH ×3 (07:34→21:51)
[2017-06-09] MEDS: DOCUSATE 100 MG CAP PO SCH ×2 (07:35→21:52)
[2017-06-09] MEDS: PIPERACILLIN-TAZOBACTAM 3.375 GM in DEXTROSE/WATER 1 50ML.BAG IVPB SCH ×2 (07:35→15:48)
[2017-06-09] MEDS: DIVALPROEX SPRINKLE 125 MG CAP.SPRINK PO SCH ×4 (07:35→21:52)
[2017-06-09] MEDS: FERROUS SULFATE 325 MG TAB PO SCH ×2 (07:35→21:53)
[2017-06-09] MEDS: LORATADINE 10 MG TAB PO SCH (07:35)
[2017-06-09] MEDS: DIVALPROEX 500 MG TABLET.DR PO SCH ×4 (07:35→21:52)
[2017-06-09] MEDS: LEVOFLOXACIN 750 MG TAB PO SCH (07:36)
[2017-06-09] MEDS: ENOXAPARIN 30 MG/0.3 ML SYRINGE SQ SCH (07:36)
[2017-06-09] MEDS: SENNOSIDES-DOCUSATE SODIUM 1 EACH TAB PO SCH ×3 (07:36→21:51)
[2017-06-09] MEDS: POTASSIUM CHLORIDE ER 10 MEQ TAB.ER.PRT PO SCH ×2 (07:36→21:53)
[2017-06-09] MEDS: risperiDONE 1 MG TAB PO SCH ×4 (07:36→21:53)
[2017-06-09] MEDS: FUROSEMIDE 20 MG TAB PO SCH ×2 (07:39→15:47)
--- NOTE | 2017-06-09 07:43 | PN ---
DATE OF SERVICE: 06/07/17 CHIEF COMPLAINT: Reevaluation. HISTORY OF PRESENT ILLNESS: This is a 57 -year-old gentleman admitted to the hospital with low grade temperatures. The patient had recently been in the hospital for the same thing. The patients chest x-ray does not show any significant pneumonic process. However, underlying pneumonia is not ruled out. The patient does have some ( ) pattern. He has a history of head injury and cognitive impairment. The patient, yesterday was using constant abuse of language. Today, however, he is pleasant and cooperative and did not use one single unpleasant word during our conversation. REVIEW OF SYSTEMS: NEURO: Denies any headaches. Dizziness. PSYCH: No anxiety. CARDIAC: No chest pain, angina or palpitations. RESPIRATORY: Denies shortness of breath, cough. GI: No nausea, vomiting, abdominal pain. No diarrhea. : No symptoms of dysuria or hematuria. EXTREMITIES: Denies pain or edema. CONSTITUTIONAL: No fever or chills. PHYSICAL EXAM: 57 -year-old. Vital signs reveals temperature 99.9. Pulse 99, respirations 20. Blood pressure 120/75. Pulse ox 95% on 2 L. HEENT: Normocephalic. Neck decreased range of motion. Pupils are reactive. Nostrils clear. Oral cavity is poor dentition. NECK: no JVD, carotid bruits or thyromegaly. Chest clear to auscultation. Cardiac normal S1, S2 with no gallops. Systolic murmur 2/6 at the left sternal border. Abdomen soft. Bowel sounds present. Extremities reveal trace edema. Neurological: Awake, not oriented to place, person, and times. Moves both upper and lower extremities. However, has decreased range of motion of the left upper extremity and left lower leg. Neurologically the patient has decreased cognitive function and left sided weakness. PLAN: Continue present medical regimen. The patients condition discussed with the patient. Prognosis remains guarded. Source of infection unclear. MTDD
[2017-06-09] MEDS: HYDROCORTISONE 1% CREAM 30 GM TUBE TOPICAL SCH ×2 (07:50→21:53)
--- NOTE | 2017-06-09 15:36 | P.CNPUL ---
History of Present Illness Consult date: 06/09/17 Requesting physician: Robin Robles Reason for consult: abnormal CXR/CT (Ears do show lung disease with possible underlying aspiration pneumonia) Chief complaint: Febrile illness History of present illness: This is a 57-year-old gentleman who resides in [facility]. Followed by Dr. Bhandari as his primary care physician. 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 He was here on 05/31/2017 with suspected sepsis secondary to elevated lactate levels, blood and urine cultures had revealed no growth. He was treated and discharged to the [facility] on 2016. His brought back here to the emergency room on 06/05/2017 after being febrile at the extended care facility. Chest x-ray has underlying interstitial lung disease and aspiration pneumonia could not necessarily be ruled out. He was admitted for the same. We are seeing him today 06/09/[address] Byers. He is on the regular medical floor. No history can be taken from the patient. Thus far blood and urine cultures reveal no growth. No leukocytosis. Does continue with fevers, current temperature 100.4. He has been covered with Zosyn and Levaquin. He is on bronchodilators. 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 History of Any Multi-Drug Resistant Organisms: VRE Date of last positivie culture/infection: 06/07/17 MDRO Source:: coccyx wound Past Surgical History: Unable to Obtain Additional Past Surgical History / Comment(s): [facility] Past Anesthesia/Blood Transfusion Reactions: Unable to Obtain Past Psychological History: Depression Smoking Status: Former smoker Past Alcohol Use History: Occasional Additional Past Alcohol Use History / Comment(s): PER PAST MEDICAL HX- PAST HX OF SMOKING AND ETOH Past Drug Use History: None Reported - Past Family History Father Family Medical History: Unable to Obtain Mother Family Medical History: Unable to Obtain Medications and Allergies Home Medications Medication Instructions Recorded Confirmed Type Acetaminophen Tab [Tylenol] 1,000 mg PO Q6HR PRN 10/04/16 06/05/17 History Albuterol Nebulized [Ventolin 2.5 mg INHALATION RT-QID PRN 10/04/16 06/05/17 History Nebulized] Divalproex Sodium [Depakote] 500 mg PO QID@08,,,10/04/16 06/05/17 History Docusate [Colace] 200 mg PO BID@0800,199910/04/16 06/05/17 History Ipratropium Nebulized [Atrovent 0.5 mg INHALATION RT-QID PRN 10/04/16 06/05/17 History Nebulized] LORazepam [Ativan] 1 mg PO TID PRN 10/04/16 06/05/17 History Loratadine 10 mg PO DAILY@0800 10/04/16 06/05/17 History Magnesium Hydroxide [Milk of 2,400 mg PO HS PRN 10/04/16 06/05/17 History Magnesia] Potassium Chloride ER [K-Dur 10] 10 meq PO BID@0800,199910/04/16 06/05/17 History carBAMazepine [TEGretol] 400 mg PO TID@0800,1400,199910/04/16 06/05/17 History Atorvastatin [Lipitor] 20 mg PO HS@199905/31/17 06/05/17 History Hydrocortisone Cream 1 applic TOPICAL BID@0800,199905/31/17 06/05/17 History [Hydrocortisone 1% Cream] Amoxic-Pot Clav 500-125 mg 1 tab PO BID@0800,199906/05/17 06/05/17 History [Augmentin 500-125 mg] Cyanocobalamin [Vitamin B-12 1,000 mcg IM WE@79906/05/17 06/05/17 History Injection] Divalproex Sodium [Depakote 125 mg PO QID@08,12,,06/05/17 06/05/17 History Sprinkle] Ferrous Sulfate [Iron (65 MG 325 mg PO AC-BID@0800,199906/05/17 06/05/17 History Elemental)] Furosemide [Lasix] 60 mg PO BID@0900,1600 06/05/17 06/05/17 History Sennosides-Docusate Sodium 1 tab PO TID@0800,1400,2000 06/05/17 06/05/17 History [Senokot-S] risperiDONE [RisperDAL] 1 mg PO QID@08,12,16,20 06/05/17 06/05/17 History Allergies Allergy/AdvReac Type Severity Reaction Status Date / Time No Known Allergies Allergy Verified 06/05/17 23:47 Physical Exam Vitals: Vital Signs Temp Pulse Resp BP Pulse Ox 06/09/17 15:00 100.4 F H 109 H 20 129/78 96 06/09/17 07:00 99.2 F 99 19 133/87 98 06/08/17 23:00 97.9 F 90 20 139/78 95 Intake and Output 06/09/17 06/09/17 06/09/17 06:59 14:59 22:59 Intake Total 120 Balance 120 Intake: Oral 120 Other: Voiding Method Diaper Diaper # Voids 3 2 GENERAL EXAM: Currently nonverbal. Alert, active, comfortable in no apparent distress. HEAD: Normocephalic. EYES: Normal reaction of pupils, equal size. NOSE: Clear with pink turbinates. THROAT: No erythema or exudates. Poor dentition. NECK: No masses, no JVD. CHEST: No chest wall deformity. LUNGS: Equal air entry with crackles in the posterior bases. CVS: S1 and S2 normal with no audible murmurs, regular rhythm. ABDOMEN: No hepatosplenomegaly, normal bowel sounds, no guarding or rigidity. Neurologic: Poor cognitive function. Left-sided marketed rigidity. Left foot drop. Extremities: There is no significant peripheral edema. No clubbing, no cyanosis. Peripheral pulses are intact. Results - Laboratory Findings CBC and BMP: 06/07/17 07:18 06/07/17 07:18 Abnormal lab findings: Abnormal Labs 06/06/17 06/06/17 06/06/17 00:25 00:25 01:40 WBC 11.0 H RBC 3.45 L Hgb 10.5 L Hct 32.7 L MCHC ESR Retic Count Chloride BUN Creatinine 0.50 L Glucose 101 H POC Glucose (mg/dL) Calcium Total Protein 5.8 L Albumin 3.3 L Urine Protein Trace H Urine Ketones 1+ H Urine Blood Trace H Urine RBC 6 H Urine Bacteria Rare H Urine Mucus Rare H 06/07/17 06/07/17 06/07/17 07:18 07:18 22:25 WBC RBC 3.36 L Hgb 10.0 L Hct 32.5 L MCHC 30.7 L ESR 68 H Retic Count 2.3 H Chloride 109 H BUN 7 L Creatinine 0.60 L Glucose POC Glucose (mg/dL) 132 H Calcium 8.3 L Total Protein Albumin Urine Protein Urine Ketones Urine Blood Urine RBC Urine Bacteria Urine Mucus - Diagnostic Findings Chest x-ray: image reviewed Assessment and Plan Plan: Impression: #1 Febrile illness of unclear etiology. Suspect aspiration pneumonia on top of interstitial lung disease #2 Recent admission for suspected sepsis secondary to elevated lactic acid levels however blood and urine cultures were nondiagnostic. #3 History of traumatic brain injury. Her grafts #4 Seizure disorder. #5 Hypertension. #6 History of heart failure. #7 History of chronic tobacco use. Plan: The patient was seen and evaluated by Dr. Alonzo. His chest x-ray and labs were reviewed. We'll go ahead and continue with his current antibiotics in the form of Zosyn and Levaquin. We'll add steroids. We'll continue with bronchodilators as needed. We'll await repeat culture results. He is on Lovenox for DVT prophylaxis. If no significant improvement in his chest x-ray he may require bronchoscopy with BAL. Dr. Byers will return tomorrow to start following the patient and will make further recommendations based on his clinical status. Time with Patient: Greater than 30
[2017-06-09] MEDS: methylPREDNISolone SOD SUCCI 40 MG/ML 1 ML VIAL IV SCH (15:52)
--- NOTE | 2017-06-09 19:41 | PN ---
DATE OF SERVICE: 06/09/17 This is a 57 -year-old white male who was admitted to the hospital with continued persistent low grade fever and the patient had been started on IV antibiotics and so far the blood pressures are ( ) and the patient had a CT scan of the abdomen and pelvis and results pending. The patient has multiple chronic illness and he has history of closed head injury with mental impairment and also seizure disorder. He also has chronic obstructive pulmonary disease. The patient continues to have low grade fever. Otherwise, his condition seems to be stable. The patients chest x-ray shows some chronic multiple chronic changes, due to possibly pulmonary fibrosis . His vital signs otherwise stable. We will have pulmonary consultation and Dr. Byers has been consulted. Prognosis guarded. MTDD
[2017-06-09] MEDS: ATORVASTATIN 20 MG TAB PO SCH (21:51)
[2017-06-10] MEDS: PIPERACILLIN-TAZOBACTAM 3.375 GM in DEXTROSE/WATER 1 50ML.BAG IVPB SCH ×3 (00:21→16:35)
[2017-06-10] MEDS: methylPREDNISolone SOD SUCCI 40 MG/ML 1 ML VIAL IV SCH ×3 (00:22→16:37)
--- NOTE | 2017-06-10 09:38 | XR ---
EXAMINATION TYPE: XR chest 1V portable DATE OF EXAM: 06/10/2017 HISTORY: Shortness of breath. COMPARISON: June 07, 2017 TECHNIQUE: Single view of the chest is submitted. FINDINGS: Demonstrated are scattered senescent parenchymal change. There is underlying fibrosis. More dense co nsolidation right lateral lung base may reflect developing pneumonia. The heart is stable. Hilar and mediastinal structures are within normal limits. Degenerative changes are seen of the dorsal spine. IMPRESSION: 1. Underlying pulmonary fibrosis with developing pneumonia difficult to exclude.
[2017-06-10] MEDS: SODIUM CHLORIDE 0.9% 1,000 ML IV SCH ×2 (10:47→20:37)
[2017-06-10] MEDS: DOCUSATE 100 MG CAP PO SCH ×2 (10:48→20:34)
[2017-06-10] MEDS: DIVALPROEX SPRINKLE 125 MG CAP.SPRINK PO SCH ×4 (10:48→20:35)
[2017-06-10] MEDS: carBAMazepine 200 MG TAB PO SCH ×3 (10:49→20:33)
[2017-06-10] MEDS: risperiDONE 1 MG TAB PO SCH ×4 (10:49→20:37)
[2017-06-10] MEDS: FUROSEMIDE 20 MG TAB PO SCH ×2 (10:50→16:37)
[2017-06-10] MEDS: SENNOSIDES-DOCUSATE SODIUM 1 EACH TAB PO SCH ×3 (10:50→20:34)
[2017-06-10] MEDS: ENOXAPARIN 40 MG/0.4 ML SYRINGE SQ SCH (10:50)
[2017-06-10] MEDS: LEVOFLOXACIN 750 MG TAB PO SCH (10:50)
[2017-06-10] MEDS: FERROUS SULFATE 325 MG TAB PO SCH ×2 (10:52→20:35)
[2017-06-10] MEDS: DIVALPROEX 500 MG TABLET.DR PO SCH ×4 (10:52→20:34)
[2017-06-10] MEDS: HYDROCORTISONE 1% CREAM 30 GM TUBE TOPICAL SCH ×2 (10:52→20:36)
[2017-06-10] MEDS: LORATADINE 10 MG TAB PO SCH (10:53)
[2017-06-10] MEDS: POTASSIUM CHLORIDE ER 10 MEQ TAB.ER.PRT PO SCH ×2 (10:53→20:35)
--- NOTE | 2017-06-10 13:46 | P.PN ---
Subjective Principal diagnosis: Patient seen and evaluated examining during rounds he appears slightly more comfortable care plan discussed with the primary service as well as RN is still have intermittent cough and get short of breath on activity and exertion, his chest x-ray from today is reviewed continued to show right lower lobe consolidation and infiltrate with baseline fibrotic lung disease, patient is slightly more hypertensive than usual, afebrile otherwise latest blood pressure is 160/97 heart rate is 80-90 him a his urine blood cultures are negative so far This is a 57-year-old gentleman who resides in [facility]. Followed by Dr. Bhandari as his primary care physician. 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 He was here on 05/31/2017 with suspected sepsis secondary to elevated lactate levels, blood and urine cultures had revealed no growth. He was treated and discharged to the [facility] on 2016. His brought back here to the emergency room on 06/05/2017 after being febrile at the [facility] care facility. Chest x-ray has underlying interstitial lung disease and aspiration pneumonia Objective - Vital Signs Vital signs: Vital Signs Temp 97.0 F L 06/10/17 07:00 Pulse 83 06/10/17 07:00 Resp 18 06/10/17 07:00 BP 160/97 06/10/17 07:00 Pulse Ox 98 06/10/17 07:00 Intake & Output 06/09/17 06/10/17 06/10/17 18:59 06:59 18:59 Output Total 2 Balance -2 Weight 75.2 kg Output: Urine 2 Other: Voiding Method Diaper Diaper # Voids 2 2 - Constitutional Constitutional Comment(s): GENERAL EXAM: Currently nonverbal. Alert, active, comfortable in no apparent distress. HEAD: Normocephalic. EYES: Normal reaction of pupils, equal size. NOSE: Clear with pink turbinates. THROAT: No erythema or exudates. Poor dentition. NECK: No masses, no JVD. CHEST: No chest wall deformity. LUNGS: Equal air entry with crackles in the posterior bases. CVS: S1 and S2 normal with no audible murmurs, regular rhythm. ABDOMEN: No hepatosplenomegaly, normal bowel sounds, no guarding or rigidity. Neurologic: Poor cognitive function. Left-sided marketed rigidity. Left foot drop. Extremities: There is no significant peripheral edema. No clubbing, no cyanosis. Peripheral pulses are intact. - Labs CBC & Chem 7: 06/07/17 07:18 06/07/17 07:18 Labs: Microbiology - Last 24 Hours (Table) 06/06/17 00:25 Blood Culture - Preliminary Blood No Growth after 96 hours Assessment and Plan Plan: Impression: #1 Febrile illness of related to aspiration pneumonia on top of interstitial lung disease more likely mixed bacterial and/or or gram-negative #2 Recent admission for suspected sepsis secondary to elevated lactic acid levels however blood and urine cultures were nondiagnostic. #3 History of traumatic brain injury. Her grafts #4 Seizure disorder. #5 Hypertension. #6 History of heart failure. #7 History of chronic tobacco use. Plan: Continue antibiotics supportive care will monitor patient another 24-48 hours patient appears to be responding well with therapy likely will be discharged if remains stable to finish antibiotics on outpatient basis my care plan discussed with the primary service Time with Patient: Greater than 30
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
[2017-06-10] MEDS: ATORVASTATIN 20 MG TAB PO SCH (20:34)
[2017-06-11] MEDS: methylPREDNISolone SOD SUCCI 40 MG/ML 1 ML VIAL IV SCH ×3 (00:27→15:26)
[2017-06-11] MEDS: PIPERACILLIN-TAZOBACTAM 3.375 GM in DEXTROSE/WATER 1 50ML.BAG IVPB SCH ×3 (00:27→15:30)
[2017-06-11 07:43] VITALS: BP 136/74; RESP 16; TEMP 98.6
[2017-06-11] MEDS: DIVALPROEX SPRINKLE 125 MG CAP.SPRINK PO SCH ×3 (07:52→15:27)
[2017-06-11] MEDS: DIVALPROEX 500 MG TABLET.DR PO SCH ×3 (07:52→15:27)
[2017-06-11] MEDS: POTASSIUM CHLORIDE ER 10 MEQ TAB.ER.PRT PO SCH (07:52)
[2017-06-11] MEDS: ENOXAPARIN 40 MG/0.4 ML SYRINGE SQ SCH (07:52)
[2017-06-11] MEDS: SODIUM CHLORIDE 0.9% 1,000 ML IV SCH (07:52)
[2017-06-11] MEDS: carBAMazepine 200 MG TAB PO SCH ×2 (07:52→14:44)
[2017-06-11] MEDS: FERROUS SULFATE 325 MG TAB PO SCH (07:52)
[2017-06-11] MEDS: SENNOSIDES-DOCUSATE SODIUM 1 EACH TAB PO SCH ×2 (07:53→14:44)
[2017-06-11] MEDS: DOCUSATE 100 MG CAP PO SCH (07:53)
[2017-06-11] MEDS: FUROSEMIDE 20 MG TAB PO SCH ×2 (07:53→15:26)
[2017-06-11] MEDS: risperiDONE 1 MG TAB PO SCH ×3 (07:53→15:26)
[2017-06-11] MEDS: LORATADINE 10 MG TAB PO SCH (07:54)
[2017-06-11] MEDS: LEVOFLOXACIN 750 MG TAB PO SCH (07:54)
[2017-06-11] MEDS: HYDROCORTISONE 1% CREAM 30 GM TUBE TOPICAL SCH (07:55)
[2017-06-11] MEDS ORDERED: CYANOCOBALAMIN 1,000 MCG/ML 1 ML VIAL IM SCH (08:00)
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
[2017-06-11] MEDS ORDERED: IPRATROPIUM-ALBUTEROL 3 ML NEB INHALATION SCH (13:00)
[2017-06-11 13:44] VITALS: PULSE 88
[2017-06-11 14:28] VITALS: BMI 25.2
[2017-06-11] MEDS ORDERED: BUDESONIDE 0.5 MG/2 ML NEBU INHALATION SCH (20:00)
== END 2017-06-11 16:28 | disposition home or self-care (01) | DRG 178 ==
LOC: EC 23:35 → 4MS4W 06-06 02:32
PROVIDERS: ADMIT Internal Medicine; ATTEND Internal Medicine
DX: J69.0 Pneumonitis due to inhalation of food and vomit (principal); I69.354 Hemiplegia and hemiparesis following cerebral infarction affecting left non-dominant side; I11.0 Hypertensive heart disease with heart failure; I50.9 Heart failure, unspecified; J44.9 Chronic obstructive pulmonary disease, unspecified; G40.909 Epilepsy, unspecified, not intractable, without status epilepticus; B96.89 Other specified bacterial agents as the cause of diseases classified elsewhere; D72.825 Bandemia; M21.372 Foot drop, left foot; F32.9 Major depressive disorder, single episode, unspecified; R32 Unspecified urinary incontinence; J98.6 Disorders of diaphragm; J98.4 Other disorders of lung; F79 Unspecified intellectual disabilities; G31.84 Mild cognitive impairment of uncertain or unknown etiology; R15.9 Full incontinence of feces; Z79.899 Other long term (current) drug therapy; Z87.891 Personal history of nicotine dependence; Z79.2 Long term (current) use of antibiotics; Z71.3 Dietary counseling and surveillance; Z87.01 Personal history of pneumonia (recurrent); Z86.19 Personal history of other infectious and parasitic diseases; V89.2XXS Person injured in unspecified motor-vehicle accident, traffic, sequela
CPT/HCPCS: 36415; 71010; 71020; 74177; 80048; 80053; 80156; 80164; 81001; 83605; 85025; 85045; 85652; 87040; 87086; 94640; 94760; 96374; 99285

== ENCOUNTER 2017-06-23 12:28 | Inpatient (IN) | payer OTHER ==
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
[2017-06-23 13:57] LABS: ALT 21 U/L (21-72); AST 17 U/L (17-59); Alkaline Phosphatase 131 U/L (38-126); Anion Gap 9 mmol/L; Blood Urea Nitrogen 6 mg/dL (9-20); Calcium 8.8 mg/dL (8.4-10.2); Carbon Dioxide 31 mmol/L (22-30); Chloride 105 mmol/L (98-107); Glucose 94 mg/dL (74-99); Non-African American GFR(MDRD) >60 (>60 ml/min/1.73 sqM); Potassium 4.7 mmol/L (3.5-5.1); Sodium 145 mmol/L (137-145); Total Bilirubin 0.2 mg/dL (0.2-1.3); Total Protein 6.6 g/dL (6.3-8.2)
--- NOTE | 2017-06-23 14:00 | XR ---
EXAMINATION TYPE: XR chest 2V DATE OF EXAM: 06/23/2017 COMPARISON: 06/10/2017 HISTORY: Interstitial lung disease, congestion and cough. TECHNIQUE: Frontal and lateral views of the chest are obtained. FINDINGS: There are low lung volumes. There is chronic left hemidiaphragm elevation with chronic int erstitial reticular opacities relating to the patient's known underlying interstitial lung disease. N o new focal consolidation is appreciated. Cardiomediastinal silhouette is partially obscured but prom inent in size. Extensive degenerative changes are seen of the right glenohumeral joint. IMPRESSION: Low lung volumes, sequela of interstitial lung disease, and chronic left hemidiaphragm e levation with no new focal consolidation in comparison to the prior exam of 06/10/2017.
[2017-06-23 14:03] LABS: Basophils % (A) 0 %; CH 28.6; CHCM 31.2; Eosinophils # (A) 0.3 k/uL (0-0.7); Eosinophils % (A) 2 %; HCT 35.1 % (39.0-53.0); HDW 3.32; HGB 11.6 gm/dL (13.0-17.5); Hypochromasia Moderate; Luc # (Auto) 0.38; Luc % (Auto) 3; Lymphocytes # (A) 2.6 k/uL (1.0-4.8); Lymphocytes % (A) 22 %; MCH 30.3 pg (25.0-35.0); MCHC 32.9 g/dL (31.0-37.0); MCV 92.1 fL (80.0-100.0); Mean Platelet Volume 6.6; Monocytes # (A) 1.1 k/uL (0-1.0); Monocytes % (A) 9 %; Neutrophils # (A) 7.5 k/uL (1.3-7.7); Neutrophils % (A) 63 %; RBC 3.81 m/uL (4.30-5.90); RDW 14.3 % (11.5-15.5); WBC 11.9 k/uL (3.8-10.6); WBC (Perox) 11.79
[2017-06-23] MEDS ORDERED: methylPREDNISolone SOD SUCCI 125 MG/2 ML VIAL IV ONE (15:09)
[2017-06-23] MEDS ORDERED: IPRATROPIUM-ALBUTEROL 3 ML NEB INHALATION STA (15:09)
[2017-06-23] MEDS ORDERED: NALOXONE 0.4 MG/ML 1 ML VIAL IV PRN (15:21)
[2017-06-23] MEDS ORDERED: ACETAMINOPHEN TAB 500 MG TAB PO PRN (15:26)
[2017-06-23] MEDS ORDERED: LORazepam 1 MG TAB PO PRN (15:26)
[2017-06-23] MEDS ORDERED: IPRATROPIUM 0.5 MG/2.5 ML NEBU INHALATION PRN (15:26)
[2017-06-23] MEDS ORDERED: MAGNESIUM HYDROXIDE 2,400 MG/10 ML CUP PO PRN (15:26)
[2017-06-23] MEDS ORDERED: IPRATROPIUM-ALBUTEROL 3 ML NEB INHALATION PRN (15:26)
[2017-06-23] MEDS: FUROSEMIDE 20 MG TAB PO SCH (17:39)
[2017-06-23] MEDS: DIVALPROEX SPRINKLE 125 MG CAP.SPRINK PO SCH ×2 (17:40→22:04)
[2017-06-23] MEDS: DIVALPROEX 500 MG TABLET.DR PO SCH ×2 (17:40→22:05)
[2017-06-23] MEDS: AZITHROMYCIN 500 MG in SODIUM CHLORIDE 0.9% 250 ML IVPB SCH (17:55)
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
[2017-06-23] MEDS: POTASSIUM CHLORIDE ER 10 MEQ TAB.ER.PRT PO SCH (22:05)
[2017-06-23] MEDS: DOCUSATE 100 MG CAP PO SCH (22:05)
[2017-06-23] MEDS: carBAMazepine 200 MG TAB PO SCH (22:05)
[2017-06-23] MEDS: FERROUS SULFATE 325 MG TAB PO SCH (22:05)
[2017-06-23] MEDS: HYDROCORTISONE 1% CREAM 30 GM TUBE TOPICAL SCH (22:06)
[2017-06-23] MEDS: ATORVASTATIN 20 MG TAB PO SCH (22:06)
[2017-06-23] MEDS: SENNOSIDES-DOCUSATE SODIUM 1 EACH TAB PO SCH (22:06)
[2017-06-24] MEDS: DOCUSATE 100 MG CAP PO SCH ×2 (08:41→20:24)
[2017-06-24] MEDS: DIVALPROEX SPRINKLE 125 MG CAP.SPRINK PO SCH ×4 (08:41→20:26)
[2017-06-24] MEDS: DIVALPROEX 500 MG TABLET.DR PO SCH ×4 (08:41→20:26)
[2017-06-24] MEDS: HYDROCORTISONE 1% CREAM 30 GM TUBE TOPICAL SCH ×2 (08:41→20:27)
[2017-06-24] MEDS: POTASSIUM CHLORIDE ER 10 MEQ TAB.ER.PRT PO SCH ×2 (08:42→20:25)
[2017-06-24] MEDS: ENOXAPARIN 40 MG/0.4 ML SYRINGE SQ SCH (08:42)
[2017-06-24] MEDS: carBAMazepine 200 MG TAB PO SCH ×3 (08:42→20:26)
[2017-06-24] MEDS: LORATADINE 10 MG TAB PO SCH (08:42)
[2017-06-24] MEDS: SENNOSIDES-DOCUSATE SODIUM 1 EACH TAB PO SCH ×3 (08:42→20:25)
[2017-06-24] MEDS: FERROUS SULFATE 325 MG TAB PO SCH ×2 (08:42→20:24)
[2017-06-24] MEDS: FUROSEMIDE 20 MG TAB PO SCH ×2 (08:43→14:58)
[2017-06-24 09:26] LABS: Anion Gap 7 mmol/L; Blood Urea Nitrogen 8 mg/dL (9-20); Calcium 8.7 mg/dL (8.4-10.2); Carbon Dioxide 28 mmol/L (22-30); Chloride 109 mmol/L (98-107); Glucose 74 mg/dL (74-99); Magnesium 2.2 mg/dL (1.6-2.3); Non-African American GFR(MDRD) >60 (>60 ml/min/1.73 sqM); Potassium 4.6 mmol/L (3.5-5.1); Sodium 144 mmol/L (137-145)
[2017-06-24 09:33] LABS: Basophils % (A) 0 %; CH 28.5; CHCM 30.8; Eosinophils # (A) 0.1 k/uL (0-0.7); Eosinophils % (A) 1 %; HCT 32.7 % (39.0-53.0); HDW 3.27; HGB 10.2 gm/dL (13.0-17.5); Hypochromasia Moderate; Luc # (Auto) 0.19; Luc % (Auto) 2; Lymphocytes # (A) 2.4 k/uL (1.0-4.8); Lymphocytes % (A) 28 %; MCH 28.9 pg (25.0-35.0); MCHC 31.1 g/dL (31.0-37.0); MCV 92.9 fL (80.0-100.0); Mean Platelet Volume 6.9; Monocytes # (A) 0.7 k/uL (0-1.0); Monocytes % (A) 8 %; Neutrophils # (A) 5.2 k/uL (1.3-7.7); Neutrophils % (A) 61 %; RBC 3.52 m/uL (4.30-5.90); RDW 14.3 % (11.5-15.5); WBC 8.6 k/uL (3.8-10.6); WBC (Perox) 9.21
[2017-06-24] MEDS: methylPREDNISolone SOD SUCCI 40 MG/ML 1 ML VIAL IV SCH ×2 (12:04→18:00)
[2017-06-24] MEDS: IPRATROPIUM-ALBUTEROL 3 ML NEB INHALATION SCH ×2 (13:41→20:33)
--- NOTE | 2017-06-24 15:04 | FL ---
COMPARISON: NONE DATE OF EXAM: 06/24/2017 HISTORY: Dysphasia A number of thin and thick substances were ingested under the care of the department of speech pathol ogy. There is delayed oral clearance. There is significant aspiration upon ingestion of nectar. [place] ining substances demonstrated no evidence of aspiration or penetration. Fluoroscopy time-2.16 minutes. IMPRESSION: 1. Delayed oral clearance and significant aspiration upon ingestion of nectar thick substances.
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
[2017-06-24] MEDS: AZITHROMYCIN 500 MG in SODIUM CHLORIDE 0.9% 250 ML IVPB SCH (18:00)
[2017-06-24] MEDS: ATORVASTATIN 20 MG TAB PO SCH (20:26)
[2017-06-24] MEDS: BUDESONIDE 0.5 MG/2 ML NEBU INHALATION SCH (20:32)
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
[2017-06-25] MEDS: methylPREDNISolone SOD SUCCI 40 MG/ML 1 ML VIAL IV SCH ×5 (00:08→23:19)
[2017-06-25] MEDS: BUDESONIDE 0.5 MG/2 ML NEBU INHALATION SCH ×2 (07:01→19:10)
[2017-06-25] MEDS: IPRATROPIUM-ALBUTEROL 3 ML NEB INHALATION SCH ×3 (07:01→19:10)
[2017-06-25] MEDS: HYDROCORTISONE 1% CREAM 30 GM TUBE TOPICAL SCH ×2 (07:31→20:33)
[2017-06-25] MEDS: ENOXAPARIN 40 MG/0.4 ML SYRINGE SQ SCH (07:31)
[2017-06-25] MEDS: carBAMazepine 200 MG TAB PO SCH ×3 (07:31→20:19)
[2017-06-25] MEDS: DOCUSATE 100 MG CAP PO SCH ×2 (07:32→20:19)
[2017-06-25] MEDS: DIVALPROEX 500 MG TABLET.DR PO SCH ×4 (07:32→20:19)
[2017-06-25] MEDS: LORATADINE 10 MG TAB PO SCH (07:32)
[2017-06-25] MEDS: FUROSEMIDE 20 MG TAB PO SCH ×2 (07:32→16:27)
[2017-06-25] MEDS: SENNOSIDES-DOCUSATE SODIUM 1 EACH TAB PO SCH ×3 (07:32→20:20)
[2017-06-25] MEDS: DIVALPROEX SPRINKLE 125 MG CAP.SPRINK PO SCH ×4 (07:32→20:19)
[2017-06-25] MEDS: FERROUS SULFATE 325 MG TAB PO SCH ×2 (07:32→20:20)
[2017-06-25] MEDS: POTASSIUM CHLORIDE ER 10 MEQ TAB.ER.PRT PO SCH ×2 (08:49→20:20)
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
[2017-06-25] MEDS ORDERED: RX INFO: IV CONTRAST WAS GIVEN 1 EACH MISC MISCELLANE PRN (13:00)
--- NOTE | 2017-06-25 16:20 | CT ---
EXAMINATION TYPE: CT chest w con DATE OF EXAM: 06/25/2017 COMPARISON: CT chest May 31, 2017. Chest x-ray 2 days ago. HISTORY: Aspiration per order. Cough and congestion on admission [address] DLP: 446.6 mGycm. Automated Exposure Control for Dose Reduction was Utilized. TECHNIQUE: CT scan of the thorax is performed following with IV Contrast, patient injected with 100 mL of Omnipaque 300. FINDINGS: LUNGS: There is low lung volumes with elevated left hemidiaphragm redemonstrated. There is moderate t o severe biapical scarring. There is additional reticulation and scarring throughout the upper lungs bilaterally extending to involve the bilateral lower lungs particularly lingula and right middle lobe where there is linear hyperdensity identified. Consider parenchymal calcifications bilaterally at th is level. Exam is suboptimal due to respiratory motion artifact. No pleural effusion or pneumothorax is seen. MEDIASTINUM: There are no greater than 1 cm hilar or mediastinal lymph nodes. No cardiomegaly or pe ricardial effusion is seen. Heart is deviated to right of midline. There is slight mediastinal shift to the right overall noted. OTHER: Bilateral gynecomastia is seen. Advanced degenerative change right glenohumeral joint is prese nt with marked ossific reformation noted. 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
[2017-06-25] MEDS: AZITHROMYCIN 500 MG TAB PO SCH (18:09)
[2017-06-25] MEDS: ATORVASTATIN 20 MG TAB PO SCH (20:18)
[2017-06-26] MEDS: methylPREDNISolone SOD SUCCI 40 MG/ML 1 ML VIAL IV SCH ×3 (06:12→17:30)
[2017-06-26] MEDS: IPRATROPIUM-ALBUTEROL 3 ML NEB INHALATION SCH ×3 (08:12→20:15)
[2017-06-26] MEDS: BUDESONIDE 0.5 MG/2 ML NEBU INHALATION SCH ×2 (08:12→20:15)
[2017-06-26 08:23] LABS: INR 1.2 (<1.2)
[2017-06-26] MEDS: carBAMazepine 200 MG TAB PO SCH ×3 (08:30→20:49)
[2017-06-26] MEDS: DIVALPROEX 500 MG TABLET.DR PO SCH ×4 (08:31→20:48)
[2017-06-26] MEDS: LORATADINE 10 MG TAB PO SCH (08:31)
[2017-06-26] MEDS: DIVALPROEX SPRINKLE 125 MG CAP.SPRINK PO SCH ×4 (08:31→20:56)
[2017-06-26] MEDS: FERROUS SULFATE 325 MG TAB PO SCH ×2 (08:31→20:51)
[2017-06-26] MEDS: DOCUSATE 100 MG CAP PO SCH ×2 (08:31→20:49)
[2017-06-26] MEDS: POTASSIUM CHLORIDE ER 10 MEQ TAB.ER.PRT PO SCH ×2 (08:31→20:51)
[2017-06-26] MEDS: SENNOSIDES-DOCUSATE SODIUM 1 EACH TAB PO SCH ×3 (08:32→20:49)
[2017-06-26] MEDS: FUROSEMIDE 20 MG TAB PO SCH ×2 (08:32→16:54)
[2017-06-26] MEDS: HYDROCORTISONE 1% CREAM 30 GM TUBE TOPICAL SCH ×2 (09:18→21:07)
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
[2017-06-26] MEDS ORDERED: VANCOMYCIN 1,500 MG in SODIUM CHLORIDE 0.9% 250 ML IVPB STA (14:14)
[2017-06-26] MEDS ORDERED: GLYCOPYRROLATE 0.2 MG/ML 2 ML VIAL ONE (15:40)
[2017-06-26] MEDS ORDERED: fentaNYL (PF) 50 MCG/ML 2 ML AMP ONE (15:40)
[2017-06-26] MEDS ORDERED: LIDOCAINE 1% INJ 10MG/ML (20 ML MDV) ONE (15:40)
[2017-06-26] MEDS ORDERED: PROPOFOL 10 MG/ML 20 ML VIAL IV ONE (15:40)
[2017-06-26] MEDS ORDERED: MIDAZOLAM 2 MG/2 ML VIAL ONE (15:40)
[2017-06-26] MEDS ORDERED: SODIUM CHLORIDE 0.9% 500 ML IV ONE (15:41)
--- NOTE | 2017-06-26 16:11 | P.PCN ---
Date of Procedure: 06/26/17 Preoperative Diagnosis: Postoperative Diagnosis: Procedure(s) Performed: Procedure: Percutaneous endoscopic gastrostomy feeding tube placement. Preoperative diagnosis: Pre-esophageal dysphagia. Postoperative diagnosis: Successful placement of 20-Bengali [employer] gastrostomy feeding tube. Preparation sedation: Was provided by anesthesia. Brief clinical history: The patient is a 57-year-old male who was admitted with shortness of breath secondary to acute exacerbation of COPD with a history of CHF, medical debility, traumatic brain injury/hemiparesis and aspiration pneumonia. Consultation requested for PEG tube placement. Patient failed barium swallow with significant aspiration upon ingestion of nectar thick substances. Not able to maintain adequate nutrition. White count 8.6. Hemoglobin 10.2. Platelet 681. BUN 8. Creatinine 0.5. Sodium 144. Potassium 4.6. The details are summarized in the history and physical and dictated consultations and progress notes. Procedure: With the patient in the supine position and after informed consent and adequate sedation, I passed the Olympus-GIF 160 video upper endoscope through the cricopharyngeus down the esophagus. GE junction was around 40 cm from the incisors and there was a very small sliding hiatal hernia. The endoscope was then passed into the stomach which was insufflated with air and inspected in detail including the retroflex view in the cardia. Finally, the endoscope was passed through the pylorus into the duodenum. The stomach did not show any obvious abnormalities. Pyloric channel, duodenal bulb, post bulbar area and descending duodenum appeared within normal limits. At this point I proceeded to place the gastrostomy feeding tube. The skin was cleansed with Betadine in the usual fashion and 1% Xylocaine was used for local anesthesia and a small incision was made in the epigastric area using #11 blade. The needle trocar was then inserted through the incision and once in the gastric lumen it was captured with the snare. A guidewire was then passed through the needle which was then captured with the snare and withdrawn by withdrawing the endoscope. A [employer] 20-Bengali gastrostomy feeding tube was then used and was advanced over the guidewire until it emerged through the abdominal incision then it was pulled until it was in the appropriate position. This was checked by advancing the endoscope over the guidewire back into the stomach. Once the placement was confirmed the endoscope was withdrawn. The patient tolerated the procedure well. Plan: The patient is already on antibiotics. We will advise local care of the feeding tube and will consult with the dietitian to order and advance feeding tube formula. Implants: Indications for Procedure: Operative Findings: Description of Procedure:
[2017-06-26] MEDS: AZITHROMYCIN 500 MG TAB PO SCH (17:25)
[2017-06-26] MEDS: ATORVASTATIN 20 MG TAB PO SCH (20:49)
[2017-06-27] MEDS: methylPREDNISolone SOD SUCCI 40 MG/ML 1 ML VIAL IV SCH ×4 (00:17→21:35)
[2017-06-27] MEDS: IPRATROPIUM-ALBUTEROL 3 ML NEB INHALATION SCH ×3 (07:25→20:02)
[2017-06-27] MEDS: BUDESONIDE 0.5 MG/2 ML NEBU INHALATION SCH ×2 (07:26→20:02)
--- NOTE | 2017-06-27 07:49 | P.PN ---
Subjective Principal diagnosis: dysphagia failed swallow s/p PEG yesterday for failed swallow. No bleeding. Objective - Vital Signs Vital signs: Vital Signs Temp 99.4 F 06/27/17 07:00 Pulse 81 06/27/17 07:38 Resp 16 06/27/17 07:38 BP 126/72 06/27/17 07:00 Pulse Ox 96 06/27/17 07:26 Intake & Output 06/26/17 06/27/17 06/27/17 18:59 06:59 18:59 Intake Total 400 Balance 400 Weight 81.5 kg Intake: IV 400 Other: Voiding Method Incontinent Diaper Incontinent # Voids 2 3 # Bowel Movements 1 - Exam General appearance: The patient is alert, in no acute distress. Foul language. HET: Head is normocephalic and atraumatic. Pupils are equal and reactive. Oropharynx is clear without lesions. Neck: Supple without lymphadenopathy. Trachea midline. Heart: S1 S2. Regular rate and rhythm. Lungs: No crackles or wheezes are heard. Abdomen: Soft, nontender, nondistended with bowel sounds. PEG without bleeding swelling or drainage. No peritoneal signs. No palpable organomegaly or masses. Extremities: Left hemiparesis. Neurological: No focal deficits. Strength and sensation are grossly intact. - Labs CBC & Chem 7: 06/24/17 08:26 06/24/17 08:26 Labs: Abnormal Lab Results - Last 24 Hours (Table) 06/26/17 Range/Units 07:36 INR 1.2 H (<1.2) Assessment and Plan (1) Dysphagia Status: Acute (2) Traumatic brain injury Status: Acute (3) COPD exacerbation Status: Acute (4) Left hemiparesis Status: Chronic (5) Seizure disorder Status: Chronic Plan: 1. May use PEG for medications and feeds. 2. Will sign off. Assessment and plan of care discussed with Dr. Cohen
[2017-06-27] MEDS: ENOXAPARIN 40 MG/0.4 ML SYRINGE SQ SCH ×2 (08:25→08:26)
[2017-06-27] MEDS: FUROSEMIDE 20 MG TAB PO SCH (08:26)
[2017-06-27] MEDS: DIVALPROEX 500 MG TABLET.DR PO SCH ×4 (08:26→19:44)
[2017-06-27] MEDS: DIVALPROEX SPRINKLE 125 MG CAP.SPRINK PO SCH ×4 (08:26→19:44)
[2017-06-27] MEDS: SENNOSIDES-DOCUSATE SODIUM 1 EACH TAB PO SCH ×3 (08:27→19:49)
[2017-06-27] MEDS: carBAMazepine 200 MG TAB PO SCH ×3 (08:28→19:43)
[2017-06-27] MEDS: DOCUSATE 100 MG CAP PO SCH ×2 (08:28→19:44)
[2017-06-27] MEDS: LORATADINE 10 MG TAB PO SCH (08:29)
[2017-06-27] MEDS: FERROUS SULFATE 325 MG TAB PO SCH ×2 (08:29→19:44)
[2017-06-27] MEDS: POTASSIUM CHLORIDE ER 10 MEQ TAB.ER.PRT PO SCH ×2 (08:29→19:44)
[2017-06-27] MEDS: HYDROCORTISONE 1% CREAM 30 GM TUBE TOPICAL SCH ×2 (08:30→21:03)
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
[2017-06-27] MEDS: FUROSEMIDE 40 MG TAB PO SCH (16:57)
[2017-06-27] MEDS: AZITHROMYCIN 500 MG TAB PO SCH (17:33)
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
[2017-06-27] MEDS: ATORVASTATIN 20 MG TAB PO SCH (19:43)
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
[2017-06-28] MEDS: BUDESONIDE 0.5 MG/2 ML NEBU INHALATION SCH ×2 (07:19→19:36)
[2017-06-28] MEDS: IPRATROPIUM-ALBUTEROL 3 ML NEB INHALATION SCH ×3 (07:20→19:36)
[2017-06-28 07:48] LABS: Basophils % (A) 0 %; CH 29.4; CHCM 31.1; Eosinophils # (A) 0.1 k/uL (0-0.7); Eosinophils % (A) 1 %; HCT 36.3 % (39.0-53.0); HDW 3.18; HGB 11.4 gm/dL (13.0-17.5); Hypochromasia Moderate; Luc # (Auto) 0.29; Luc % (Auto) 2; Lymphocytes # (A) 3.1 k/uL (1.0-4.8); Lymphocytes % (A) 23 %; MCH 29.8 pg (25.0-35.0); MCHC 31.4 g/dL (31.0-37.0); MCV 94.9 fL (80.0-100.0); Mean Platelet Volume 7.4; Monocytes % (A) 7 %; Neutrophils % (A) 67 %; RBC 3.82 m/uL (4.30-5.90); WBC 13.5 k/uL (3.8-10.6); WBC (Perox) 14.55
[2017-06-28 08:08] LABS: ALT 32 U/L (21-72); AST 31 U/L (17-59); Alkaline Phosphatase 107 U/L (38-126); Anion Gap 10 mmol/L; Blood Urea Nitrogen 14 mg/dL (9-20); Calcium 8.8 mg/dL (8.4-10.2); Carbon Dioxide 27 mmol/L (22-30); Chloride 106 mmol/L (98-107); Glucose 74 mg/dL (74-99); Magnesium 2.3 mg/dL (1.6-2.3); Non-African American GFR(MDRD) >60 (>60 ml/min/1.73 sqM); Potassium 4.6 mmol/L (3.5-5.1); Sodium 143 mmol/L (137-145); Total Bilirubin 0.3 mg/dL (0.2-1.3); Total Protein 6.9 g/dL (6.3-8.2); Uric Acid 6.1 mg/dL (3.5-8.5)
[2017-06-28] MEDS: DIVALPROEX SPRINKLE 125 MG CAP.SPRINK PO SCH ×4 (08:45→21:02)
[2017-06-28] MEDS: DIVALPROEX 500 MG TABLET.DR PO SCH ×4 (08:46→21:01)
[2017-06-28] MEDS: carBAMazepine 200 MG TAB PO SCH ×3 (08:46→21:01)
[2017-06-28] MEDS: FERROUS SULFATE 325 MG TAB PO SCH ×2 (08:47→21:02)
[2017-06-28] MEDS: DOCUSATE 100 MG CAP PO SCH ×2 (08:47→21:02)
[2017-06-28] MEDS: SENNOSIDES-DOCUSATE SODIUM 1 EACH TAB PO SCH ×3 (08:48→21:03)
[2017-06-28] MEDS: LORATADINE 10 MG TAB PO SCH (08:48)
[2017-06-28] MEDS: POTASSIUM CHLORIDE ER 10 MEQ TAB.ER.PRT PO SCH ×2 (08:48→21:02)
[2017-06-28] MEDS: HYDROCORTISONE 1% CREAM 30 GM TUBE TOPICAL SCH ×2 (08:48→21:04)
[2017-06-28] MEDS: ENOXAPARIN 40 MG/0.4 ML SYRINGE SQ SCH (08:49)
[2017-06-28] MEDS: methylPREDNISolone SOD SUCCI 40 MG/ML 1 ML VIAL IV SCH (08:49)
[2017-06-28] MEDS: FUROSEMIDE 40 MG TAB PO SCH ×2 (08:49→17:10)
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
[2017-06-28] MEDS: AZITHROMYCIN 500 MG TAB PO SCH (17:11)
[2017-06-28] MEDS: ATORVASTATIN 20 MG TAB PO SCH (21:01)
[2017-06-29] MEDS: BUDESONIDE 0.5 MG/2 ML NEBU INHALATION SCH (07:26)
[2017-06-29] MEDS: IPRATROPIUM-ALBUTEROL 3 ML NEB INHALATION SCH ×3 (07:26→20:15)
--- NOTE | 2017-06-29 07:48 | XR ---
EXAMINATION TYPE: XR chest 1V portable DATE OF EXAM: 06/29/2017 CLINICAL HISTORY: Difficulty breathing progress study. TECHNIQUE: Single AP portable upright view of the chest is obtained. COMPARISON: Chest x-ray from June 23, 2017. CT chest June 25, 2017. FINDINGS: There is redemonstration of low lung volumes and elevated left hemidiaphragm with diffuse bilateral predominantly peripheral fibrosis. No new focal infiltrate, pleural effusion, or pneumothor ax is present. Cardiac silhouette size is within normal limits. Osseous structures are demineralized. Advanced degenerative change with ossific reformation is seen at right shoulder level. IMPRESSION: Overall stable findings, low lung volumes with diffuse interstitial fibrosis more promi nent in the periphery, no new acute infiltrate is evident.
[2017-06-29 08:56] LABS: Anisocytosis Slight; Basophils % (A) 0 %; CH 29.5; CHCM 31.5; Eosinophils # (A) 0.1 k/uL (0-0.7); Eosinophils % (A) 1 %; HCT 35.9 % (39.0-53.0); HDW 3.21; HGB 10.9 gm/dL (13.0-17.5); Hypochromasia Moderate; Luc % (Auto) 2; Lymphocytes # (A) 3.2 k/uL (1.0-4.8); Lymphocytes % (A) 23 %; MCH 28.5 pg (25.0-35.0); MCHC 30.3 g/dL (31.0-37.0); MCV 94.1 fL (80.0-100.0); Mean Platelet Volume 7.5; Monocytes % (A) 7 %; Neutrophils # (A) 9.4 k/uL (1.3-7.7); Neutrophils % (A) 67 %; RBC 3.82 m/uL (4.30-5.90); RDW 16.2 % (11.5-15.5); WBC (Perox) 14.55
[2017-06-29 09:27] LABS: Anion Gap 8 mmol/L; Blood Urea Nitrogen 15 mg/dL (9-20); Calcium 8.9 mg/dL (8.4-10.2); Carbon Dioxide 32 mmol/L (22-30); Chloride 103 mmol/L (98-107); Glucose 102 mg/dL (74-99); Non-African American GFR(MDRD) >60 (>60 ml/min/1.73 sqM); Potassium 4.3 mmol/L (3.5-5.1); Sodium 143 mmol/L (137-145)
[2017-06-29] MEDS: carBAMazepine 200 MG TAB PO SCH ×3 (09:27→20:29)
[2017-06-29] MEDS: DIVALPROEX 500 MG TABLET.DR PO SCH ×4 (09:28→20:29)
[2017-06-29] MEDS: DOCUSATE 100 MG CAP PO SCH ×2 (09:28→20:29)
[2017-06-29] MEDS: DIVALPROEX SPRINKLE 125 MG CAP.SPRINK PO SCH ×4 (09:28→20:29)
[2017-06-29] MEDS: HYDROCORTISONE 1% CREAM 30 GM TUBE TOPICAL SCH ×2 (09:29→20:30)
[2017-06-29] MEDS: LORATADINE 10 MG TAB PO SCH (09:29)
[2017-06-29] MEDS: FERROUS SULFATE 325 MG TAB PO SCH ×2 (09:29→20:29)
[2017-06-29] MEDS: FUROSEMIDE 40 MG TAB PO SCH (09:30)
[2017-06-29] MEDS: SENNOSIDES-DOCUSATE SODIUM 1 EACH TAB PO SCH ×3 (09:30→20:29)
[2017-06-29] MEDS: ENOXAPARIN 40 MG/0.4 ML SYRINGE SQ SCH (09:30)
[2017-06-29] MEDS: POTASSIUM CHLORIDE ER 10 MEQ TAB.ER.PRT PO SCH ×2 (09:30→20:29)
[2017-06-29] MEDS: LEVOFLOXACIN 500MG-D5W PMX 500 MG in DEXTROSE/WATER 1 100ML.BAG IVPB SCH (12:50)
--- NOTE | 2017-06-29 13:15 | P.PN ---
Subjective Dictation progress note date of service 06/29/[address] Yessica Schwarz M.D., FACP in the temporary absence of Dr. Alexander Bhandari. Patient seen today evaluated with the underlying his white count went up from 13.5 yesterday to 14 today and despite of discontinuation of the steroids, his hemoglobin is 10.9 was yesterday 11.4 his platelet count on the high side. Electrolytes indicating normal sodium and normal potassium normalchloride, his creatinine 0.59 his blood sugar 102. Temperature 97.7 pulse is 80 and his respiratory rate 18 pulse ox 97 on 2 L nasal cannula. Chest x-ray indicating decreased lung volume and pulmonary fibrosis no clear evidence of infection. Will obtain a urine analysis and culture and sensitivity. We'll DC the azithromycin and Rocephin, and start on Levaquin 500 mg IV piggyback daily until the results of the urine culture and a urine analysis is available. 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 Oropharynx he had bad oral hygiene as well as decayed tooth. He had a scar on the middle of the skull and the forehead from previous head injury. Neck was supple no JVD no thyromegaly no lymphadenopathy trachea midline. Chest radiated bilaterally with a history of chronic aspiration and fibrosis of the lung. Heart regular sinus rhythm. Abdomen soft positive bowel sounds no tenderness in the four-quadrant waiting a prolapse for incontinence. Extremities no edema and positive pulses with the inability to walk or stand he had frequent changes position. Patient failed the testing for dysphagia subsequently Dr. Duncan gastroenterology placed a PEG tube and he is currently nothing by mouth as he have significant aspiration. Which explained the recurrent aspiration pneumonia and the pulmonary fibrosis. And recurrent admission. Infusion with feeding with no abnormalities at this time and he is in the rate of 40 mL an hour with the pump. Leukocytosis: Unclear etiology we'll obtain the urine analysis culture and sensitivity, no evidence of pneumonia could be associated with volume depletion with the mild increase in the creatinine to 0.59 from 0.55 is questionable juan antonio however his blood pressure on the low side 98/44. Assessment and plan. #1 we'll change antibiotic to Levaquin No. 2 we'll obtain UA culture and sensitivity #3 probably will decrease the diuretics. #4 repeat lab in a.m. if stable patient may go to the [facility]. Objective - Vital Signs Vital signs: Vital Signs Temp 97.7 F 06/29/17 07:00 Pulse 72 06/29/17 13:01 Resp 18 06/29/17 07:00 BP 98/44 06/29/17 07:00 Pulse Ox 97 06/29/17 07:00 Intake & Output 06/28/17 06/29/17 06/29/17 18:59 06:59 18:59 Weight 83 kg Other: Voiding Method Diaper # Voids 1 - Labs CBC & Chem 7: 06/29/17 08:20 06/29/17 08:20 Labs: Abnormal Lab Results - Last 24 Hours (Table) 06/29/17 06/29/17 Range/Units 08:20 08:20 WBC 14.0 H (3.8-10.6) k/uL RBC 3.82 L (4.30-5.90) m/uL Hgb 10.9 L (13.0-17.5) gm/dL Hct 35.9 L (39.0-53.0) % MCHC 30.3 L (31.0-37.0) g/dL RDW 16.2 H (11.5-15.5) % Plt Count 537 H (150-450) k/uL Neutrophils # 9.4 H (1.3-7.7) k/uL Carbon Dioxide 32 H (22-30) mmol/L Creatinine 0.59 L (0.66-1.25) mg/dL Glucose 102 H (74-99) mg/dL
[2017-06-29 15:01] LABS: Amorphous Sediment,Urine Occasional /hpf; Appearance,Urine Cloudy (Clear); Bilirubin,Urine Negative (Negative); Glucose,Urine (UA) Negative (Negative); Ketones,Urine Negative (Negative); Leukocyte Esterase,Urine Negative (Negative); Mucus,Urine Rare /hpf; Nitrite,Urine Negative (Negative); Particle Count 17329; Protein,Urine Negative (Negative); RBC,Urine 1 /hpf (0-5); UA Billing (MACRO vs. MICRO) MICRO; Urobilinogen,Urine <2.0 mg/dL (<2.0)
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
[2017-06-29] MEDS: ATORVASTATIN 20 MG TAB PO SCH (20:29)
[2017-06-30] MEDS: IPRATROPIUM-ALBUTEROL 3 ML NEB INHALATION SCH ×3 (07:23→19:37)
[2017-06-30 08:14] LABS: Anisocytosis Slight; Basophils % (A) 0 %; CH 29.3; CHCM 31.5; Eosinophils # (A) 0.3 k/uL (0-0.7); Eosinophils % (A) 2 %; HCT 36.5 % (39.0-53.0); HDW 3.27; HGB 11.3 gm/dL (13.0-17.5); Hypochromasia Slight; Luc # (Auto) 0.26; Luc % (Auto) 2; Lymphocytes # (A) 2.9 k/uL (1.0-4.8); Lymphocytes % (A) 20 %; MCH 28.9 pg (25.0-35.0); MCHC 30.9 g/dL (31.0-37.0); MCV 93.4 fL (80.0-100.0); Mean Platelet Volume 7.3; Monocytes % (A) 7 %; Neutrophils # (A) 9.8 k/uL (1.3-7.7); Neutrophils % (A) 69 %; RBC 3.91 m/uL (4.30-5.90); RDW 16.1 % (11.5-15.5); WBC 14.2 k/uL (3.8-10.6); WBC (Perox) 15.21
[2017-06-30 08:29] LABS: Anion Gap 7 mmol/L; Blood Urea Nitrogen 12 mg/dL (9-20); Carbon Dioxide 31 mmol/L (22-30); Chloride 104 mmol/L (98-107); Glucose 113 mg/dL (74-99); Magnesium 2.3 mg/dL (1.6-2.3); Non-African American GFR(MDRD) >60 (>60 ml/min/1.73 sqM); Potassium 4.5 mmol/L (3.5-5.1); Sodium 142 mmol/L (137-145); Uric Acid 5.3 mg/dL (3.5-8.5)
[2017-06-30] MEDS: DIVALPROEX SPRINKLE 125 MG CAP.SPRINK PO SCH ×4 (08:40→20:55)
[2017-06-30] MEDS: POTASSIUM CHLORIDE ER 10 MEQ TAB.ER.PRT PO SCH ×2 (08:40→20:56)
[2017-06-30] MEDS: SENNOSIDES-DOCUSATE SODIUM 1 EACH TAB PO SCH ×3 (08:40→20:55)
[2017-06-30] MEDS: LORATADINE 10 MG TAB PO SCH (08:40)
[2017-06-30] MEDS: FERROUS SULFATE 325 MG TAB PO SCH ×2 (08:40→20:56)
[2017-06-30] MEDS: DIVALPROEX 500 MG TABLET.DR PO SCH ×4 (08:40→20:55)
[2017-06-30] MEDS: FUROSEMIDE 40 MG TAB PO SCH (08:40)
[2017-06-30] MEDS: ENOXAPARIN 40 MG/0.4 ML SYRINGE SQ SCH (08:41)
[2017-06-30] MEDS: carBAMazepine 200 MG TAB PO SCH ×3 (08:41→20:55)
[2017-06-30] MEDS: DOCUSATE 100 MG CAP PO SCH ×2 (08:41→20:55)
[2017-06-30] MEDS: HYDROCORTISONE 1% CREAM 30 GM TUBE TOPICAL SCH ×2 (08:43→20:56)
[2017-06-30] MEDS: LEVOFLOXACIN 500MG-D5W PMX 500 MG in DEXTROSE/WATER 1 100ML.BAG IVPB SCH (13:06)
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
[2017-06-30] MEDS: ATORVASTATIN 20 MG TAB PO SCH (20:55)
[2017-07-01] MEDS: ENOXAPARIN 40 MG/0.4 ML SYRINGE SQ SCH (07:40)
[2017-07-01] MEDS: POTASSIUM CHLORIDE ER 10 MEQ TAB.ER.PRT PO SCH ×2 (07:40→21:09)
[2017-07-01] MEDS: DOCUSATE 100 MG CAP PO SCH ×2 (07:40→21:05)
[2017-07-01] MEDS: SENNOSIDES-DOCUSATE SODIUM 1 EACH TAB PO SCH ×3 (07:40→21:10)
[2017-07-01] MEDS: carBAMazepine 200 MG TAB PO SCH ×3 (07:40→21:04)
[2017-07-01] MEDS: LORATADINE 10 MG TAB PO SCH (07:40)
[2017-07-01] MEDS: FUROSEMIDE 40 MG TAB PO SCH (07:40)
[2017-07-01] MEDS: DIVALPROEX SPRINKLE 125 MG CAP.SPRINK PO SCH ×4 (07:40→21:04)
[2017-07-01] MEDS: FERROUS SULFATE 325 MG TAB PO SCH ×2 (07:40→21:09)
[2017-07-01] MEDS: HYDROCORTISONE 1% CREAM 30 GM TUBE TOPICAL SCH ×2 (07:41→21:10)
[2017-07-01] MEDS: DIVALPROEX 500 MG TABLET.DR PO SCH ×3 (07:42→16:13)
[2017-07-01] MEDS: IPRATROPIUM-ALBUTEROL 3 ML NEB INHALATION SCH ×3 (08:02→19:22)
[2017-07-01 09:24] LABS: Anisocytosis Slight; Basophils # (A) 0.1 k/uL (0-0.2); Basophils % (A) 0 %; CH 29.4; CHCM 31.7; Eosinophils # (A) 0.2 k/uL (0-0.7); Eosinophils % (A) 2 %; HCT 36.5 % (39.0-53.0); HDW 3.19; HGB 11.2 gm/dL (13.0-17.5); Hypochromasia Slight; Luc # (Auto) 0.22; Luc % (Auto) 2; Lymphocytes # (A) 3.1 k/uL (1.0-4.8); Lymphocytes % (A) 22 %; MCH 28.5 pg (25.0-35.0); MCHC 30.6 g/dL (31.0-37.0); MCV 93.3 fL (80.0-100.0); Mean Platelet Volume 7.7; Monocytes # (A) 1.1 k/uL (0-1.0); Monocytes % (A) 8 %; Neutrophils # (A) 9.4 k/uL (1.3-7.7); Neutrophils % (A) 67 %; RBC 3.92 m/uL (4.30-5.90); RDW 16.2 % (11.5-15.5); WBC (Perox) 14.55
[2017-07-01] MEDS: LEVOFLOXACIN 500MG-D5W PMX 500 MG in DEXTROSE/WATER 1 100ML.BAG IVPB SCH (11:26)
[2017-07-01] MEDS: methylPREDNISolone SOD SUCCI 125 MG/2 ML VIAL IV SCH (16:13)
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
[2017-07-01 19:18] LABS: Glucose,Whole Blood 133 mg/dL (75-99)
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
[2017-07-01] MEDS: ATORVASTATIN 20 MG TAB PO SCH (21:04)
[2017-07-02] MEDS: methylPREDNISolone SOD SUCCI 125 MG/2 ML VIAL IV SCH ×3 (00:21→17:02)
[2017-07-02] MEDS: IPRATROPIUM-ALBUTEROL 3 ML NEB INHALATION SCH ×3 (08:08→20:36)
[2017-07-02] MEDS: carBAMazepine 200 MG TAB PO SCH ×3 (08:31→20:05)
[2017-07-02] MEDS: SENNOSIDES-DOCUSATE SODIUM 1 EACH TAB PO SCH ×3 (08:31→20:07)
[2017-07-02] MEDS: LORATADINE 10 MG TAB PO SCH (08:31)
[2017-07-02] MEDS: ENOXAPARIN 40 MG/0.4 ML SYRINGE SQ SCH (08:31)
[2017-07-02] MEDS: POTASSIUM CHLORIDE ER 10 MEQ TAB.ER.PRT PO SCH ×2 (08:31→20:08)
[2017-07-02] MEDS: FERROUS SULFATE 325 MG TAB PO SCH ×2 (08:32→20:06)
[2017-07-02] MEDS: DIVALPROEX SPRINKLE 125 MG CAP.SPRINK PO SCH ×4 (08:32→20:06)
[2017-07-02] MEDS: HYDROCORTISONE 1% CREAM 30 GM TUBE TOPICAL SCH ×2 (08:33→20:07)
[2017-07-02] MEDS: FUROSEMIDE 40 MG TAB PO SCH (08:33)
[2017-07-02] MEDS: DOCUSATE 100 MG CAP PO SCH (08:37)
[2017-07-02] MEDS: DOCUSATE ORAL SOLN 100 MG/10 ML CUP PO SCH ×2 (09:37→20:06)
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
[2017-07-02] MEDS: LEVOFLOXACIN 500MG-D5W PMX 500 MG in DEXTROSE/WATER 1 100ML.BAG IVPB SCH (11:50)
[2017-07-02] MEDS: ATORVASTATIN 20 MG TAB PO SCH (20:05)
[2017-07-02] MEDS: TRIAMCINOLONE ACET 0.1% OINTMENT 15 GM TUBE TOPICAL SCH (20:06)
[2017-07-02] MEDS: AMMONIUM LACTATE 12% CREAM 140 GM TUBE TOPICAL SCH (20:08)
[2017-07-03] MEDS: methylPREDNISolone SOD SUCCI 125 MG/2 ML VIAL IV SCH ×2 (00:29→08:03)
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
[2017-07-03] MEDS: carBAMazepine 200 MG TAB PO SCH ×2 (08:02→14:22)
[2017-07-03] MEDS: LORATADINE 10 MG TAB PO SCH (08:03)
[2017-07-03] MEDS: DOCUSATE ORAL SOLN 100 MG/10 ML CUP PO SCH (08:03)
[2017-07-03] MEDS: DIVALPROEX SPRINKLE 125 MG CAP.SPRINK PO SCH ×2 (08:03→13:27)
[2017-07-03] MEDS: FERROUS SULFATE 325 MG TAB PO SCH (08:03)
[2017-07-03] MEDS: SENNOSIDES-DOCUSATE SODIUM 1 EACH TAB PO SCH ×2 (08:04→14:22)
[2017-07-03] MEDS: FUROSEMIDE 40 MG TAB PO SCH (08:04)
[2017-07-03] MEDS: ENOXAPARIN 40 MG/0.4 ML SYRINGE SQ SCH (08:04)
[2017-07-03] MEDS: POTASSIUM CHLORIDE ER 10 MEQ TAB.ER.PRT PO SCH (08:04)
[2017-07-03 08:07] VITALS: RESP 18
[2017-07-03] MEDS: AMMONIUM LACTATE 12% CREAM 140 GM TUBE TOPICAL SCH (08:09)
[2017-07-03] MEDS: HYDROCORTISONE 1% CREAM 30 GM TUBE TOPICAL SCH (08:09)
[2017-07-03] MEDS: TRIAMCINOLONE ACET 0.1% OINTMENT 15 GM TUBE TOPICAL SCH (08:09)
[2017-07-03] MEDS: IPRATROPIUM-ALBUTEROL 3 ML NEB INHALATION SCH ×2 (08:55→13:33)
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
[2017-07-03] MEDS: LEVOFLOXACIN 500MG-D5W PMX 500 MG in DEXTROSE/WATER 1 100ML.BAG IVPB SCH (13:27)
[2017-07-03 14:34] VITALS: BMI 27.3
[2017-07-03 16:25] VITALS: BP 110/60; PULSE 85; TEMP 97.4
--- NOTE | 2017-07-05 10:02 | CONS ---
CONSULTATION DATE OF SERVICE: 07/02/2017 HISTORY OF PRESENT ILLNESS: Thank you for asking me to evaluate your patient. 57-year-old male, admitted for acute exacerbation of COPD with current dermatologic complaint of a rash which we were consulted to evaluate. The patient is mentally impaired and does not communicate well. Nurse states rash was present upon admission to the hospital; however, it has gotten worse since admission. The patient is currently using hydrocortisone 1% for the rash with no improvement. PAST MEDICAL HISTORY: Closed head injury, COPD, seizure disorder, hyperlipidemia, history of CHF. PAST SURGICAL HISTORY: Unable to obtain. FAMILY HISTORY: Noncontributory. SOCIAL: Former smoker. MEDICATIONS: See chart. ALLERGIES: No known drug allergies. PHYSICAL EXAMINATION: On examination, there is an area of marked erythema and scaling on the right shoulder and right upper arm. There are patches of erythema and scaling and generalized dryness of both arms. There is marked dryness and thickening of the skin on the feet. DIAGNOSES: 1. Asteatotic dermatitis trunk and arms. 2. Xerosis on the feet. TREATMENT: 1. Triamcinolone 0.1% ointment applied b.i.d. to affected areas on trunk and arms. 2. Lac-Hydrin 12% cream applied b.i.d. to feet. 3. If you have any questions, please call our office at [phone]. MMSARY / IJN: [id number] /
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
== END 2017-07-03 15:41 | disposition home health service (06) | DRG 177 ==
LOC: EC 12:28 → 4MS4W 15:21
PROVIDERS: ADMIT Internal Medicine; ATTEND Internal Medicine
PROC: 0DH63UZ Insertion of Feeding Device into Stomach, Percutaneous Approach (ICD-10-PCS; principal; 2017-06-26 15:55)
PROC: 3E0G76Z Introduction of Nutritional Substance into Upper GI, Via Natural or Artificial Opening (ICD-10-PCS; 2017-06-27)
DX: J69.0 Pneumonitis due to inhalation of food and vomit (principal); J96.21 Acute and chronic respiratory failure with hypoxia; R13.19 Other dysphagia; G81.94 Hemiplegia, unspecified affecting left nondominant side; J96.12 Chronic respiratory failure with hypercapnia; F03.91 Unspecified dementia, unspecified severity, with behavioral disturbance; J44.1 Chronic obstructive pulmonary disease with (acute) exacerbation; I50.9 Heart failure, unspecified; I11.0 Hypertensive heart disease with heart failure; Z99.81 Dependence on supplemental oxygen; J98.6 Disorders of diaphragm; Z66 Do not resuscitate; E78.5 Hyperlipidemia, unspecified; G40.909 Epilepsy, unspecified, not intractable, without status epilepticus; L30.8 Other specified dermatitis; L85.3 Xerosis cutis; F32.9 Major depressive disorder, single episode, unspecified; R20.2 Paresthesia of skin; K44.9 Diaphragmatic hernia without obstruction or gangrene; D72.829 Elevated white blood cell count, unspecified; R53.1 Weakness; R32 Unspecified urinary incontinence; R25.2 Cramp and spasm; R23.1 Pallor; T38.0X5A Adverse effect of glucocorticoids and synthetic analogues, initial encounter; K02.9 Dental caries, unspecified; Z87.828 Personal history of other (healed) physical injury and trauma; Z79.899 Other long term (current) drug therapy; Z87.820 Personal history of traumatic brain injury; Z87.891 Personal history of nicotine dependence; Z74.01 Bed confinement status; Z71.3 Dietary counseling and surveillance; Z87.01 Personal history of pneumonia (recurrent); Z86.73 Personal history of transient ischemic attack (TIA), and cerebral infarction without residual deficits; V89.2XXS Person injured in unspecified motor-vehicle accident, traffic, sequela
CPT/HCPCS: 36415; 43246; 71010; 71020; 71260; 74230; 80048; 80053; 81001; 83605; 83690; 83735; 83880; 84484; 84550; 85025; 85610; 87086; 93005; 94640; 94760; 96374; 96375; 99284

== ENCOUNTER → 2017-07-18 | Outpatient (CLI) | payer OTHER ==
--- NOTE | 2017-07-18 14:42 | XR ---
EXAMINATION TYPE: XR mandible complete DATE OF EXAM: 07/18/2017 COMPARISON: NONE HISTORY: Abscessed teeth TECHNIQUE: 6 images through the mandible were obtained. Patient unable to follow instructions cause l imitation during the exam. FINDINGS: Temporomandibular junctions as visualized appear intact. The condyles appear intact through multiple sequences No suspicious mandibular lucency is identified to suggest an abscess. Maxilla is less well visualized structures. If Additional evaluation would be of benefit, consider CT examination. IMPRESSION: 1. No obvious abscess identified. CT is available if additional evaluation would be of benefit.
== END ==
LOC: RADXRMAIN 09:47
PROVIDERS: ATTEND Dentist Oral and Maxillofacial Surgery
DX: K04.7 Periapical abscess without sinus (principal)
CPT/HCPCS: 70110

== ENCOUNTER → 2017-08-18 | Outpatient (CLI) | payer OTHER ==
[2017-08-18 11:28] LABS: CH 26.9; CHCM 29.8; HCT 39.4 % (39.0-53.0); HDW 3.13; HGB 11.9 gm/dL (13.0-17.5); Hypochromasia Marked; MCH 27.2 pg (25.0-35.0); MCHC 30.1 g/dL (31.0-37.0); MCV 90.3 fL (80.0-100.0); Mean Platelet Volume 8.2; RBC 4.37 m/uL (4.30-5.90); WBC 12.5 k/uL (3.8-10.6)
[2017-08-18 11:34] LABS: Anion Gap 11 mmol/L; Blood Urea Nitrogen 16 mg/dL (9-20); Calcium 9.7 mg/dL (8.4-10.2); Carbon Dioxide 32 mmol/L (22-30); Chloride 100 mmol/L (98-107); Glucose 101 mg/dL (74-99); Non-African American GFR(MDRD) >60 (>60 ml/min/1.73 sqM); Potassium 4.3 mmol/L (3.5-5.1); Sodium 143 mmol/L (137-145)
[2017-08-18 11:56] LABS: INR 1.1 (<1.2)
[2017-08-18 11:57] LABS: Partial Thromboplastin Time 25.7 sec (22.0-30.0); Prothrombin Time 11.1 sec (9.0-12.0)
== END | disposition home or self-care (01) ==
LOC: LABPAT 10:44
PROVIDERS: ATTEND Dentist Oral and Maxillofacial Surgery
DX: Z01.812 Encounter for preprocedural laboratory examination (principal)
CPT/HCPCS: 36415; 80048; 85027; 85610; 85730

== ENCOUNTER 2017-09-11 21:16 | Inpatient (IN) | payer OTHER ==
[2017-09-11] MEDS ORDERED: IBUPROFEN 600 MG TAB PO STA (21:31)
[2017-09-11] MEDS ORDERED: ACETAMINOPHEN TAB 500 MG TAB PO STA (21:31)
--- NOTE | 2017-09-11 21:47 | ED ---
General Adult HPI - General Chief complaint: Fever Stated complaint: Fever Time Seen by Provider: 09/11/17 21:22 Source: EMS, RN notes reviewed Mode of arrival: EMS Limitations: altered mental status, physical limitation - History of Present Illness Initial comments: 57-year-old male presents to the emergency department with chief complaint of fever. The patient is a poor historian. There is no complaints from the patient at this time. There is no known cause for the fever. Patient will not answer questions regarding review of systems. - Related Data Home Medications Medication Instructions Recorded Confirmed Acetaminophen Tab [Tylenol] 1,000 mg PEG/G-TUBE Q6HR PRN 10/04/16 09/11/17 Albuterol Nebulized [Ventolin 2.5 mg INHALATION RT-QID PRN 10/04/16 09/11/17 Nebulized] Divalproex Sodium [Depakote] 500 mg PEG/G-TUBE QID 10/04/16 09/11/17 Docusate [Colace] 200 mg PEG/G-TUBE BID 10/04/16 09/11/17 Ipratropium Nebulized [Atrovent 0.5 mg INHALATION RT-QID PRN 10/04/16 09/11/17 Nebulized] Loratadine 10 mg PEG/G-TUBE DAILY 10/04/16 09/11/17 Potassium Chloride ER [K-Dur 10] 10 meq PEG/G-TUBE BID 10/04/16 09/11/17 carBAMazepine [TEGretol] 400 mg PEG/G-TUBE TID 10/04/16 09/11/17 Atorvastatin [Lipitor] 20 mg PEG/G-TUBE HS 05/31/17 09/11/17 Hydrocortisone Cream 1 applic TOPICAL BID 05/31/17 09/11/17 [Hydrocortisone 1% Cream] Divalproex Sodium [Depakote 125 mg PEG/G-TUBE QID 06/05/17 09/11/17 Sprinkle] Furosemide [Lasix] 40 mg PEG/G-TUBE BID 06/05/17 09/11/17 Fluconazole [Diflucan] 100 mg PEG/G-TUBE DAILY 08/14/17 09/11/17 Ferrous Sulfate 330 mg PEG/G-TUBE DAILY 09/11/17 09/11/17 LORazepam [Ativan] 1 mg PO TID PRN 09/11/17 09/11/17 Silace 150mg/15ml 100 mg PEG/G-TUBE BID 09/11/17 09/11/17 Allergies Allergy/AdvReac Type Severity Reaction Status Date / Time No Known Allergies Allergy Verified 09/11/17 21:40 Review of Systems ROS Statement: Those systems with pertinent positive or pertinent negative responses have been documented in the HPI. ROS Other: All systems not noted in ROS Statement are negative. 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 History of Any Multi-Drug Resistant Organisms: None Reported Date of last positivie culture/infection: None MDRO Source:: None Past Surgical History: Unable to Obtain Additional Past Surgical History / Comment(s): [facility] RESIDENTAL; PEG inserted 06/27/17 Past Anesthesia/Blood Transfusion Reactions: Unable to Obtain Past Psychological History: Depression Smoking Status: Former smoker Past Alcohol Use History: None Reported Past Drug Use History: None Reported - Past Family History Father Family Medical History: Unable to Obtain Mother Family Medical History: Unable to Obtain General Exam Limitations: altered mental status, physical limitation General appearance: alert, in no apparent distress ENT exam: Present: normal exam, mucous membranes moist Neck exam: Present: normal inspection. Absent: tenderness, meningismus, lymphadenopathy Respiratory exam: Present: normal lung sounds bilaterally. Absent: respiratory distress, wheezes, rales, rhonchi, stridor Cardiovascular Exam: Present: regular rate, normal rhythm, normal heart sounds. Absent: systolic murmur, diastolic murmur, rubs, gallop, clicks GI/Abdominal exam: Present: soft, normal bowel sounds. Absent: distended, tenderness, guarding, rebound, rigid Neurological exam: Present: alert Skin exam: Present: warm, dry, intact, normal color. Absent: rash Course Vital Signs 09/11/17 09/11/17 21:28 22:30 Temperature 101.4 F H Pulse Rate 122 H 120 H Respiratory 18 18 Rate Blood Pressure 149/89 155/81 O2 Sat by Pulse 96 99 Oximetry - Reevaluation(s) Reevaluation #1: 09/11/17 23:10 Patient meets sepsis criteria at this time. Medical Decision Making - Medical Decision Making 57-year-old male presents with chief complaint of fever. At this time there is suspicion for pneumonia. This and we will admit the patient on IV antibiotics. At this time Dr. Alexander Bhandari was consulted regarding the admission he does agree to accept and he would like Dr. Garcia consult. - Lab Data Result diagrams: 09/11/17 22:00 09/11/17 22:00 Lab Results 09/11/17 09/11/17 09/11/17 Range/Units 22:00 22:00 22:00 WBC 15.9 H (3.8-10.6) k/uL RBC 4.30 (4.30-5.90) m/uL Hgb 11.6 L (13.0-17.5) gm/dL Hct 37.0 L (39.0-53.0) % MCV 86.2 (80.0-100.0) fL MCH 27.0 (25.0-35.0) pg MCHC 31.4 (31.0-37.0) g/dL RDW 14.9 (11.5-15.5) % Plt Count 496 H (150-450) k/uL Neutrophils % 80 % Lymphocytes % 11 % Monocytes % 6 % Eosinophils % 1 % Basophils % 0 % Neutrophils # 12.7 H (1.3-7.7) k/uL Lymphocytes # 1.8 (1.0-4.8) k/uL Monocytes # 0.9 (0-1.0) k/uL Eosinophils # 0.2 (0-0.7) k/uL Basophils # 0.1 (0-0.2) k/uL Hypochromasia Moderate Sodium 138 (137-145) mmol/L Potassium 4.3 (3.5-5.1) mmol/L Chloride 96 L (98-107) mmol/L Carbon Dioxide 32 H (22-30) mmol/L Anion Gap 10 mmol/L BUN 18 (9-20) mg/dL Creatinine 0.60 L (0.66-1.25) mg/dL Est GFR (MDRD) Af Amer >60 (>60 ml/min/1.73 sqM) Est GFR (MDRD) Non-Af >60 (>60 ml/min/1.73 sqM) Glucose 117 H (74-99) mg/dL Plasma Lactic Acid Hermes 2.1 H* (0.7-2.0) mmol/L Calcium 9.7 (8.4-10.2) mg/dL Total Bilirubin 0.7 (0.2-1.3) mg/dL AST 42 (17-59) U/L ALT 20 L (21-72) U/L Alkaline Phosphatase 94 (38-126) U/L Total Protein 8.0 (6.3-8.2) g/dL Albumin 4.1 (3.5-5.0) g/dL Urine Color Urine Appearance (Clear) Urine pH (5.0-8.0) Ur Specific Liberty (1.001-1.035) Urine Protein (Negative) Urine Glucose (UA) (Negative) Urine Ketones (Negative) Urine Blood (Negative) Urine Nitrite (Negative) Urine Bilirubin (Negative) Urine Urobilinogen (<2.0) mg/dL Ur Leukocyte Esterase (Negative) Urine RBC (0-5) /hpf Urine WBC (0-5) /hpf Ur Squamous Epith Cells (0-4) /hpf Hyaline Casts (0-2) /lpf Influenza Type A RNA (Not Detectd) Influenza Type B (PCR) (Not Detectd) 09/11/17 09/11/17 Range/Units 22:27 22:30 WBC (3.8-10.6) k/uL RBC (4.30-5.90) m/uL Hgb (13.0-17.5) gm/dL Hct (39.0-53.0) % MCV (80.0-100.0) fL MCH (25.0-35.0) pg MCHC (31.0-37.0) g/dL RDW (11.5-15.5) % Plt Count (150-450) k/uL Neutrophils % % Lymphocytes % % Monocytes % % Eosinophils % % Basophils % % Neutrophils # (1.3-7.7) k/uL Lymphocytes # (1.0-4.8) k/uL Monocytes # (0-1.0) k/uL Eosinophils # (0-0.7) k/uL Basophils # (0-0.2) k/uL Hypochromasia Sodium (137-145) mmol/L Potassium (3.5-5.1) mmol/L Chloride (98-107) mmol/L Carbon Dioxide (22-30) mmol/L Anion Gap mmol/L BUN (9-20) mg/dL Creatinine (0.66-1.25) mg/dL Est GFR (MDRD) Af Amer (>60 ml/min/1.73 sqM) Est GFR (MDRD) Non-Af (>60 ml/min/1.73 sqM) Glucose (74-99) mg/dL Plasma Lactic Acid Hermes (0.7-2.0) mmol/L Calcium (8.4-10.2) mg/dL Total Bilirubin (0.2-1.3) mg/dL AST (17-59) U/L ALT (21-72) U/L Alkaline Phosphatase (38-126) U/L Total Protein (6.3-8.2) g/dL Albumin (3.5-5.0) g/dL Urine Color Light Yellow Urine Appearance Clear (Clear) Urine pH 7.5 (5.0-8.0) Ur Specific Liberty 1.008 (1.001-1.035) Urine Protein Negative (Negative) Urine Glucose (UA) Negative (Negative) Urine Ketones Negative (Negative) Urine Blood Moderate H (Negative) Urine Nitrite Negative (Negative) Urine Bilirubin Negative (Negative) Urine Urobilinogen <2.0 (<2.0) mg/dL Ur Leukocyte Esterase Negative (Negative) Urine RBC 14 H (0-5) /hpf Urine WBC 1 (0-5) /hpf Ur Squamous Epith Cells <1 (0-4) /hpf Hyaline Casts 1 (0-2) /lpf Influenza Type A RNA Not Detected (Not Detectd) Influenza Type B (PCR) Not Detected (Not Detectd) - Radiology Data Radiology results: report reviewed, image reviewed Disposition Clinical Impression: Sepsis, Pneumonia Disposition: ADMITTED IP TO THIS [facility] Condition: Stable Referrals: Alexander Bhandari MD [Primary Care Provider] - 1-2 days Decision Date: 09/11/17 Decision Time: 23:41
[2017-09-11 22:25] LABS: Basophils # (A) 0.1 k/uL (0-0.2); Basophils % (A) 0 %; CH 26.8; CHCM 31.1; Eosinophils # (A) 0.2 k/uL (0-0.7); Eosinophils % (A) 1 %; HDW 2.93; HGB 11.6 gm/dL (13.0-17.5); Hypochromasia Moderate; Luc # (Auto) 0.19; Luc % (Auto) 1; Lymphocytes # (A) 1.8 k/uL (1.0-4.8); Lymphocytes % (A) 11 %; MCHC 31.4 g/dL (31.0-37.0); MCV 86.2 fL (80.0-100.0); Mean Platelet Volume 7.9; Monocytes # (A) 0.9 k/uL (0-1.0); Monocytes % (A) 6 %; Neutrophils # (A) 12.7 k/uL (1.3-7.7); Neutrophils % (A) 80 %; RDW 14.9 % (11.5-15.5); WBC 15.9 k/uL (3.8-10.6); WBC (Perox) 15.93
[2017-09-11 22:40] LABS: Appearance,Urine Clear (Clear); Bilirubin,Urine Negative (Negative); Glucose,Urine (UA) Negative (Negative); Ketones,Urine Negative (Negative); Leukocyte Esterase,Urine Negative (Negative); Nitrite,Urine Negative (Negative); PH, Urine 7.5 (5.0-8.0); Particle Count 1686; Protein,Urine Negative (Negative); RBC,Urine 14 /hpf (0-5); Specific Gravity,Urine 1.008 (1.001-1.035); Squamous Epithelial Cell,Urine <1 /hpf (0-4); UA Billing (MACRO vs. MICRO) MICRO; Urobilinogen,Urine <2.0 mg/dL (<2.0); WBC,Urine 1 /hpf (0-5)
[2017-09-11] MEDS ORDERED: LEVOFLOXACIN 750MG-D5W PMX 750 MG in DEXTROSE/WATER 1 150ML.BAG IVPB STA (22:49)
--- NOTE | 2017-09-11 23:05 | XR ---
EXAMINATION TYPE: XR chest 1V DATE OF EXAM: 09/11/2017 COMPARISON: 06/29/2017 HISTORY: Fever and cough TECHNIQUE: Single frontal view of the chest is obtained. FINDINGS: There is poor aspiration with extensive reticular nodular pulmonary infiltrate. There is e levated left diaphragm. Pulmonary vascularity is difficult to evaluate because of extensive lung dise ase. IMPRESSION: Advanced palmy fibrosis. Acute pneumonia cannot be entirely excluded. I do not see defin ite heart failure. No significant change compared to last exam.
[2017-09-11 23:26] LABS: ALT 20 U/L (21-72); AST 42 U/L (17-59); Alkaline Phosphatase 94 U/L (38-126); Anion Gap 10 mmol/L; Blood Urea Nitrogen 18 mg/dL (9-20); Calcium 9.7 mg/dL (8.4-10.2); Carbon Dioxide 32 mmol/L (22-30); Chloride 96 mmol/L (98-107); Glucose 117 mg/dL (74-99); Non-African American GFR(MDRD) >60 (>60 ml/min/1.73 sqM); Potassium 4.3 mmol/L (3.5-5.1); Sodium 138 mmol/L (137-145); Total Bilirubin 0.7 mg/dL (0.2-1.3)
[2017-09-11] MEDS ORDERED: PNEUMONIA PROTOCOL UTILIZED 1 EACH MISC PO PRN (23:42)
[2017-09-11] MEDS ORDERED: ALBUTEROL NEBULIZED 2.5 MG/3 ML INHALATION PRN (23:44)
[2017-09-11] MEDS ORDERED: LORazepam 1 MG TAB PO PRN (23:44)
[2017-09-11] MEDS ORDERED: IPRATROPIUM 0.5 MG/2.5 ML NEBU INHALATION PRN (23:44)
[2017-09-12] MEDS: SODIUM CHLORIDE 0.9% 1,000 ML IV SCH ×3 (00:18→23:16)
[2017-09-12] MEDS: PIPERACILLIN-TAZOBACTAM 3.375 GM in DEXTROSE/WATER 1 50ML.BAG IVPB SCH ×4 (01:28→23:15)
[2017-09-12] MEDS: DOCUSATE 100 MG CAP PO SCH ×2 (08:34→20:46)
[2017-09-12] MEDS: DIVALPROEX SPRINKLE 125 MG CAP.SPRINK PEG/G-TUBE SCH ×4 (08:34→20:47)
[2017-09-12] MEDS: carBAMazepine 200 MG TAB PEG/G-TUBE SCH ×3 (08:35→20:48)
[2017-09-12] MEDS: DIVALPROEX 500 MG TABLET.DR PO SCH ×4 (08:35→20:47)
[2017-09-12] MEDS: FERROUS SULFATE 325 MG TAB PO SCH (08:35)
[2017-09-12] MEDS: FUROSEMIDE 40 MG TAB PEG/G-TUBE SCH ×2 (08:36→20:48)
[2017-09-12] MEDS: HYDROCORTISONE 1% CREAM 30 GM TUBE TOPICAL SCH ×2 (08:36→20:49)
[2017-09-12] MEDS: LORATADINE 10 MG TAB PEG/G-TUBE SCH (08:39)
[2017-09-12] MEDS: POTASSIUM CHLORIDE ER 10 MEQ TAB.ER.PRT PO SCH ×2 (08:40→20:47)
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
[2017-09-12] MEDS: FLUCONAZOLE 100 MG TAB PEG/G-TUBE SCH (11:55)
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
[2017-09-12] MEDS: DOCUSATE PEG/G-TUBE SCH ×2 (15:10→21:30)
[2017-09-12] MEDS: ACETAMINOPHEN TAB 500 MG TAB PEG/G-TUBE PRN (19:24)
[2017-09-12] MEDS: LEVOFLOXACIN 750 MG TAB PO SCH (20:47)
[2017-09-12] MEDS: HEPARIN SODIUM,PORCINE 5,000 UNIT/ML 1 ML VIAL SQ SCH (20:48)
[2017-09-12] MEDS ORDERED: ATORVASTATIN 20 MG TAB PEG/G-TUBE SCH (21:00)
[2017-09-13] MEDS: SODIUM CHLORIDE 0.9% 1,000 ML IV SCH ×3 (07:34→23:29)
[2017-09-13] MEDS: PIPERACILLIN-TAZOBACTAM 3.375 GM in DEXTROSE/WATER 1 50ML.BAG IVPB SCH ×3 (09:19→23:28)
[2017-09-13] MEDS: DOCUSATE 100 MG CAP PO SCH ×2 (10:27→20:13)
[2017-09-13] MEDS: carBAMazepine 200 MG TAB PEG/G-TUBE SCH ×3 (10:28→21:23)
[2017-09-13] MEDS: POTASSIUM CHLORIDE ER 10 MEQ TAB.ER.PRT PO SCH ×2 (10:28→20:13)
[2017-09-13] MEDS: FUROSEMIDE 40 MG TAB PEG/G-TUBE SCH ×2 (10:29→20:13)
[2017-09-13] MEDS: FERROUS SULFATE 325 MG TAB PO SCH (10:29)
[2017-09-13] MEDS: DIVALPROEX SPRINKLE 125 MG CAP.SPRINK PEG/G-TUBE SCH ×4 (10:29→21:24)
[2017-09-13] MEDS: DIVALPROEX 500 MG TABLET.DR PO SCH ×4 (10:29→20:14)
[2017-09-13] MEDS: LORATADINE 10 MG TAB PEG/G-TUBE SCH (10:29)
[2017-09-13] MEDS: HEPARIN SODIUM,PORCINE 5,000 UNIT/ML 1 ML VIAL SQ SCH ×2 (10:30→20:13)
[2017-09-13] MEDS: HYDROCORTISONE 1% CREAM 30 GM TUBE TOPICAL SCH ×2 (10:32→20:15)
[2017-09-13] MEDS: DOCUSATE PEG/G-TUBE SCH ×2 (10:34→20:15)
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
[2017-09-13] MEDS: FLUCONAZOLE 100 MG TAB PEG/G-TUBE SCH (12:10)
[2017-09-13] MEDS: ACETAMINOPHEN TAB 500 MG TAB PEG/G-TUBE PRN (12:36)
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
[2017-09-13] MEDS: LEVOFLOXACIN 750 MG TAB PO SCH (20:13)
--- NOTE | 2017-09-14 06:55 | XR ---
EXAMINATION TYPE: XR chest 1V DATE OF EXAM: 09/14/2017 HISTORY: re check. REFERENCE: Previous study dated 09/11/2017. FINDINGS: There is elevation of the left hemidiaphragm. There is diffuse interstitial lung disease. T hese are chronic. Heart size is obscured. Pleural spaces appear clear. IMPRESSION: CHANGES OF LOW LUNG VOLUMES AND PULMONARY FIBROSIS.
[2017-09-14] MEDS: PIPERACILLIN-TAZOBACTAM 3.375 GM in DEXTROSE/WATER 1 50ML.BAG IVPB SCH ×3 (07:56→23:33)
--- NOTE | 2017-09-14 10:37 | P.PN ---
Subjective Progress Note Date: 09/14/17 Principal diagnosis: Pneumonia Progress note dated 09/14/2017 This is a patient who is well-known to our service. He is 57. He has a history of traumatic brain injury. The patient's very inappropriate and really not much history can obtain be obtained from the patient. He is admitted with a diagnosis of fever. He was thought to have possible pneumonia. The patient is doing about the same again very difficult to evaluate. He does have a history of heart failure COPD hyperlipidemia hypertension memory impairment pneumonia seizure disorder outbursts of verbal profanity traumatic brain injury incontinence and previous insertion of a PEG tube for feeding. Overall the patient is doing about the same. Stable when compared to yesterday on the . Chest x-ray shows small lung volumes and some interstitial changes either from interstitial edema and/or interstitial fibrosis. Interstitial pneumonia is certainly also another possibility. Objective - Vital Signs Vital signs: Vital Signs Temp 97.9 F 09/13/17 23:00 Pulse 85 09/14/17 08:08 Resp 16 09/14/17 08:08 BP 114/82 09/14/17 08:08 Pulse Ox 99 09/14/17 08:08 Intake & Output 09/13/17 09/14/17 09/14/17 18:59 06:59 18:59 Intake Total 1510 1620 440 Balance 1510 1620 440 Weight 78 kg Intake: IV 850 Piperacillin-Tazobactam 3 50 .375 gm In Dextrose/Water 1 50ml.bag @ 12.5 mls/hr IVPB Q8HR [facility] Rx#: [id number] Sodium Chloride 0.9% 1, 800 000 ml @ 100 mls/hr IV . Q10H [facility] Rx#:[id number] Intake, IV Titration 850 Amount Piperacillin-Tazobactam 3 50 .375 gm In Dextrose/Water 1 50ml.bag @ 12.5 mls/hr IVPB Q8HR [facility] Rx#: [id number] Sodium Chloride 0.9% 1, 800 000 ml @ 100 mls/hr IV . Q10H [facility] Rx#:[id number] Tube Feeding 660 770 440 Other: Voiding Method Diaper Diaper Diaper Incontinent Incontinent Incontinent # Voids 2 1 # Bowel Movements 1 1 - Exam No acute distress, not practically oriented and difficult to assess. HEENT examination is grossly unremarkable. Neck supple. Full range of motion. Cardiovascular examination reveals regular rhythm rate. Lungs reveal a few scattered rhonchi. Breath sounds are equal. He does not take deep breaths. No wheezes. Abdomen soft bowel sounds are heard. Extremities are intact. Skin without rash. Neurologic examination cannot be adequately performed. - Labs CBC & Chem 7: 09/11/17 22:00 09/11/17 22:00 Labs: Microbiology - Last 24 Hours (Table) 09/11/17 22:00 Blood Culture - Preliminary Blood No Growth after 48 hours Assessment and Plan (1) Pneumonia Current Visit: Yes Status: Acute Code(s): J18.9 - PNEUMONIA, UNSPECIFIED ORGANISM SNOMED Code(s): 875282850 (2) Sepsis Current Visit: Yes Status: Acute Code(s): A41.9 - SEPSIS, UNSPECIFIED ORGANISM SNOMED Code(s): 04592702 (3) Bilateral lower extremity edema Current Visit: No Status: Acute Code(s): R60.0 - LOCALIZED EDEMA SNOMED Code(s): 949520090 (4) CHF exacerbation Current Visit: No Status: Acute Code(s): I50.9 - HEART FAILURE, UNSPECIFIED SNOMED Code(s): 59709686 (5) COPD exacerbation Current Visit: No Status: Acute Code(s): J44.1 - CHRONIC OBSTRUCTIVE PULMONARY DISEASE W (ACUTE) EXACERBATION SNOMED Code(s): 406612551026650 (6) Debility Current Visit: No Status: Acute Code(s): R53.81 - OTHER MALAISE SNOMED Code(s): 68501715 (7) Dysphagia Current Visit: No Status: Acute Code(s): R13.10 - DYSPHAGIA, UNSPECIFIED SNOMED Code(s): 27524804 (8) Traumatic brain injury Current Visit: No Status: Acute Code(s): S06.9X9A - UNSP INTRACRANIAL INJURY W LOC OF UNSP DURATION, INIT SNOMED Code(s): 823562442 (9) History of stroke Current Visit: No Status: Chronic Code(s): Z86.73 - PRSNL HX OF TIA (TIA), AND CEREB INFRC W/O RESID DEFICITS SNOMED Code(s): 225421351 (10) Left hemiparesis Current Visit: No Status: Chronic Code(s): G81.94 - HEMIPLEGIA, UNSPECIFIED AFFECTING LEFT NONDOMINANT SIDE SNOMED Code(s): 458535829 (11) Seizure disorder Current Visit: No Status: Chronic Code(s): G40.909 - EPILEPSY, UNSP, NOT INTRACTABLE, WITHOUT STATUS EPILEPTICUS SNOMED Code(s): 086336308 (12) Pneumonia Current Visit: No Status: Suspected Code(s): J18.9 - PNEUMONIA, UNSPECIFIED ORGANISM SNOMED Code(s): 655467306 Plan: The patient is admitted with a diagnosis of pneumonia and sepsis. Again because of his mental status and traumatic brain injury, sprain difficult to assess this patient. Chest x-ray looks mostly like pulmonary fibrosis. There may be some interstitial changes from edema. The patient does not look particularly ill. Continue many times before both in the office and in the hospital. He looks like he is pretty much at baseline. I'll review the x-ray labs and medications. Please see my recommendations. Plan dated 09/14/2017 The patient's medications labs and x-rays are all reviewed. Difficult to assess this patient given his mental status. Does not appear to be any distress at all at all. Chest x-ray appears to show either diffuse interstitial changes from edema fibrosis or interstitial pneumonia. The patient is not having any difficulty breathing. Not particularly tachypneic. Follow. The patient remains on O2. Prognosis is guarded. Time with Patient: Less than 30
[2017-09-14] MEDS: FERROUS SULFATE 325 MG TAB PO SCH (10:54)
[2017-09-14] MEDS: DIVALPROEX 500 MG TABLET.DR PO SCH ×2 (10:55→13:35)
[2017-09-14] MEDS: LORATADINE 10 MG TAB PEG/G-TUBE SCH (10:55)
[2017-09-14] MEDS: carBAMazepine 200 MG TAB PEG/G-TUBE SCH ×3 (10:55→22:18)
[2017-09-14] MEDS: FUROSEMIDE 40 MG TAB PEG/G-TUBE SCH ×2 (10:55→20:37)
[2017-09-14] MEDS: POTASSIUM CHLORIDE ER 10 MEQ TAB.ER.PRT PO SCH ×2 (10:56→20:38)
[2017-09-14] MEDS: DIVALPROEX SPRINKLE 125 MG CAP.SPRINK PEG/G-TUBE SCH ×2 (10:56→13:35)
[2017-09-14] MEDS: DOCUSATE 100 MG CAP PO SCH (10:56)
[2017-09-14] MEDS: FLUCONAZOLE 100 MG TAB PEG/G-TUBE SCH (10:56)
[2017-09-14] MEDS: DOCUSATE PEG/G-TUBE SCH ×2 (11:21→20:38)
[2017-09-14] MEDS: HEPARIN SODIUM,PORCINE 5,000 UNIT/ML 1 ML VIAL SQ SCH ×2 (11:47→20:38)
[2017-09-14] MEDS: HYDROCORTISONE 1% CREAM 30 GM TUBE TOPICAL SCH ×2 (11:49→20:38)
[2017-09-14] MEDS: SODIUM CHLORIDE 0.9% 1,000 ML IV SCH ×2 (11:49→20:52)
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
[2017-09-14] MEDS: VALPROIC ACID ORAL SOLN 250 MG/5 ML CUP PEG/G-TUBE SCH ×2 (17:17→22:18)
[2017-09-14] MEDS: LEVOFLOXACIN 750 MG TAB PO SCH (20:38)
[2017-09-14] MEDS: DOCUSATE ORAL SOLN 100 MG/10 ML CUP PEG/G-TUBE SCH (20:38)
[2017-09-15] MEDS: SODIUM CHLORIDE 0.9% 1,000 ML IV SCH ×2 (09:11→17:58)
[2017-09-15] MEDS: PIPERACILLIN-TAZOBACTAM 3.375 GM in DEXTROSE/WATER 1 50ML.BAG IVPB SCH (09:12)
[2017-09-15] MEDS: DOCUSATE ORAL SOLN 100 MG/10 ML CUP PEG/G-TUBE SCH ×2 (09:12→21:22)
[2017-09-15] MEDS: carBAMazepine 200 MG TAB PEG/G-TUBE SCH ×3 (09:13→21:23)
[2017-09-15] MEDS: VALPROIC ACID ORAL SOLN 250 MG/5 ML CUP PEG/G-TUBE SCH ×4 (09:13→21:22)
[2017-09-15] MEDS: FUROSEMIDE 40 MG TAB PEG/G-TUBE SCH ×2 (09:14→21:23)
[2017-09-15] MEDS: FLUCONAZOLE 100 MG TAB PEG/G-TUBE SCH (09:14)
[2017-09-15] MEDS: HEPARIN SODIUM,PORCINE 5,000 UNIT/ML 1 ML VIAL SQ SCH ×2 (09:14→21:24)
[2017-09-15] MEDS: HYDROCORTISONE 1% CREAM 30 GM TUBE TOPICAL SCH ×2 (09:15→22:01)
[2017-09-15] MEDS: FERROUS SULFATE 325 MG TAB PO SCH (09:15)
[2017-09-15] MEDS: LORATADINE 10 MG TAB PEG/G-TUBE SCH (09:15)
[2017-09-15] MEDS: DOCUSATE PEG/G-TUBE SCH ×2 (09:16→22:02)
[2017-09-15] MEDS: POTASSIUM CHLORIDE ER 10 MEQ TAB.ER.PRT PO SCH ×2 (09:16→21:23)
[2017-09-15] MEDS ORDERED: AMOXIC-POT CLAV 400-57MG/5ML 50 ML BOTTLE PO SCH (09:30)
[2017-09-15] MEDS: AMOXIC-POT CLAV 400-57MG/5ML 50 ML BOTTLE PO SCH ×2 (10:19→21:24)
[2017-09-15] MEDS ORDERED: IV VANCOMYCIN PER PHARMACY 1 EACH MISC MISCELLANE PRN (11:07)
[2017-09-15 11:16] VITALS: BMI 22.7
[2017-09-15] MEDS: VANCOMYCIN 1,750 MG in SODIUM CHLORIDE 0.9% 250 ML IVPB SCH ×2 (12:53→21:22)
--- NOTE | 2017-09-15 15:02 | P.PN ---
<Romi Mckeon M - Last Filed: 09/15/17 14:42> Subjective Progress Note Date: 09/15/17 Principal diagnosis: Fever, mental status change, cough, pulmonary fibrosis This is a 57-year-old male with a history of a traumatic brain injury. The patient has a history of follow outbursts of verbal profanity. The patient is not a particularly good historian. Face very inappropriate things. Anyway, the patient apparently came in with a possible temperature elevation. The patient is very difficult to assess. Does not appear to have any respiratory difficulty or hemodynamic issues. The patient does have a history of heart failure COPD hyperlipidemia hypertension memory impairment pneumonia seizure disorder outbursts of verbal profanity traumatic brain injury left hemiparesis incontinence of stool and urine. He resides at [facility]. He does have a PEG inserted for feeding. On 09/15/2017 patient is seen in follow-up medical surgical floor. Doing well from pulmonary standpoint. He denies any dyspnea, no significant sputum production or chest congestion. Lung sounds positive for a few scattered rhonchi, diminished at the bases. He is wearing oxygen intermittently, she is 97% on room air. He hasn't had any fever since admission. Wound culture of his mouth is positive for presumptive MRSA. She is currently on Augmentin, Diflucan, vancomycin. Infectious disease service has been consulted. Objective - Vital Signs Vital signs: Vital Signs Temp 97.3 F L 09/15/17 07:00 Pulse 83 09/15/17 07:00 Resp 18 09/15/17 07:00 BP 113/72 09/15/17 07:00 Pulse Ox 97 09/15/17 07:00 Intake & Output 09/14/17 09/15/17 09/15/17 18:59 06:59 18:59 Intake Total 1320 1510 440 Balance 1320 1510 440 Weight 76 kg 76 kg Intake: IV 850 Piperacillin-Tazobactam 3 50 .375 gm In Dextrose/Water 1 50ml.bag @ 12.5 mls/hr IVPB Q8HR [facility] Rx#: [id number] Sodium Chloride 0.9% 1, 800 000 ml @ 100 mls/hr IV . Q10H [facility] Rx#:[id number] Tube Feeding 1320 660 440 Other: Voiding Method Diaper Diaper Diaper Incontinent Incontinent Incontinent # Voids 1 3 2 # Bowel Movements 2 - Exam No acute distress, not oriented to person place or time HEENT examination is grossly unremarkable. Mucous membranes are moist. No oral lesions. Neck supple. Full range of motion. No adenopathy thyromegaly or neck vein distention. Cardiovascular examination reveals regular rhythm rate. S1-S2 normal. No S3 or S4. No discernible murmur noted. Lungs reveal a few scattered rhonchi.. No wheezes. No crackles. Breath sounds are diminished. Abdomen soft bowel sounds are heard. No masses or tenderness. Extremities are intact. No cyanosis clubbing or edema. Skin is without rash or lesion. Neurologic examination is near impossible to assess. - Labs CBC & Chem 7: 09/11/17 22:00 09/11/17 22:00 Labs: Microbiology - Last 24 Hours (Table) 09/13/17 17:45 Gram Stain - Preliminary Mouth Wound Culture - Preliminary Presumptive MRSA 09/11/17 22:00 Blood Culture - Preliminary Blood No Growth after 72 hours 09/13/17 17:45 Anaerobic Culture - Preliminary Mouth Assessment and Plan Plan: Assessment: #1. Acute tracheobronchitis with underlying history of pulmonary fibrosis #2. Acute sepsis, from unspecified source #3. Acute leukocytosis and lactic acidosis related to sepsis #4. Debility. Debility #5. Dysphagia, with chronic aspiration risk #6. Traumatic brain injury #7. History of a stroke with left hemiparesis #3. Seizure disorder. #9. Mouth wound preliminary culture positive for presumptive MRSA #10. He resides at [facility] Plan: Patient seems to be stable from pulmonary standpoint, excision patient is stable on room air, O2 sat at 97%. Afebrile. He denies dyspnea, no significant sputum production or chest congestion. Infectious disease service consult has been ordered for the presumptive MRSA in the wound culture of the mouth. In the meantime patient has been maintained on combination of Augmentin , vancomycin and Diflucan. No active pulmonary complaints, stable for discharge to [facility] in the next 24 hours. I performed a history & physical examination of the patient and discussed their management with my nurse practitioner, Romi Mckeon. I reviewed the nurse practitioner's note and agree with the documented findings and plan of care. Lung sounds are positive for scattered rhonchi.. The findings and the impression was discussed with the patient. I attest to the documentation by the nurse practitioner. Time with Patient: Less than 30 <Carleen Zimmer - Last Filed: 09/15/17 15:45> Subjective This is a joint evaluation that was done along with a nurse practitioner. The patient is stable. Sputum is showing MRSA and we are requesting an ID consult. Chest x-ray is not showing any acute pneumonia or consolidation and the findings are essentially chronic related to pulmonary fibrosis. There is also chronic elevation of left hemidiaphragm. We will follow. Objective - Vital Signs Vital signs: Vital Signs Temp 97.3 F L 09/15/17 07:00 Pulse 83 09/15/17 07:00 Resp 18 09/15/17 07:00 BP 113/72 09/15/17 07:00 Pulse Ox 97 09/15/17 07:00 Intake & Output 09/14/17 09/15/17 09/15/17 18:59 06:59 18:59 Intake Total 1320 1510 440 Balance 1320 1510 440 Weight 76 kg 76 kg Intake: IV 850 Piperacillin-Tazobactam 3 50 .375 gm In Dextrose/Water 1 50ml.bag @ 12.5 mls/hr IVPB Q8HR [facility] Rx#: [id number] Sodium Chloride 0.9% 1, 800 000 ml @ 100 mls/hr IV . Q10H [facility] Rx#:[id number] Tube Feeding 1320 660 440 Other: Voiding Method Diaper Diaper Diaper Incontinent Incontinent Incontinent # Voids 1 3 2 # Bowel Movements 2 - Labs CBC & Chem 7: 09/11/17 22:00 09/11/17 22:00 Labs: Microbiology - Last 24 Hours (Table) 09/13/17 17:45 Gram Stain - Preliminary Mouth Wound Culture - Preliminary Presumptive MRSA 09/11/17 22:00 Blood Culture - Preliminary Blood No Growth after 72 hours 09/13/17 17:45 Anaerobic Culture - Preliminary Mouth
--- NOTE | 2017-09-15 22:48 | P.CONS ---
History of Present Illness - Reason for Consult Consult date: 09/15/17 - Chief Complaint Fever and altered mental status - History of Present Illness 57-year-old male with known history of a traumatic brain injury presents to Hospital from his [facility] for evaluation of fever and worsening of his mental status. Is noted the patient has the extensive close head injury and has cycles of outbursts of profanity followed by home behavior initially the patient was having fevers there was concerns to pneumonia. The patient is unable to give any form of history. 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 History of Any Multi-Drug Resistant Organisms: MRSA Year Discovered:: 09/13/17 MDRO Source:: presumptive MRSA - mouth Past Surgical History: Unable to Obtain Additional Past Surgical History / Comment(s): GILDARDO RESIDENTCA; PEG inserted 06/27/17, teeth extration 2016 Past Anesthesia/Blood Transfusion Reactions: Unable to Obtain Past Psychological History: Depression Smoking Status: Former smoker Past Alcohol Use History: None Reported Additional Past Alcohol Use History / Comment(s): PER PAST MEDICAL HX- PAST HX OF SMOKING AND ETOH Past Drug Use History: None Reported - Past Family History Father Family Medical History: Unable to Obtain Mother Family Medical History: Unable to Obtain Medications and Allergies Home Medications and Allergies Comment(s): Current Medications Acetaminophen (Tylenol Tab) 1,000 mg PEG/G-TUBE Q6HR PRN PRN Reason: Pain or Fever > 100.5 Last Admin: 09/13/17 12:36 Dose: 1,000 mg Albuterol Sulfate (Ventolin Nebulized) 2.5 mg INHALATION RT-QID PRN PRN Reason: Shortness Of Breath Amoxicillin/Clavulanate Potassium (Augmentin 400-57 Mg/5 Ml Susp) 10.9 ml PO Q12HR [facility] Last Admin: 09/15/17 21:24 Dose: 10.9 ml Atorvastatin Calcium (Lipitor) 20 mg PEG/G-TUBE HS [facility] Carbamazepine (Tegretol) 400 mg PEG/G-TUBE TID [facility] Last Admin: 09/15/17 21:23 Dose: 400 mg Docusate Sodium (Colace Oral Soln) 200 mg PEG/G-TUBE BID [facility] Last Admin: 09/15/17 21:22 Dose: 200 mg Ferrous Sulfate (Feosol) 325 mg PO DAILY [facility] Last Admin: 09/15/17 09:15 Dose: 325 mg Fluconazole (Diflucan) 100 mg PEG/G-TUBE DAILY [facility] Last Admin: 09/15/17 09:14 Dose: 100 mg Furosemide (Lasix) 40 mg PEG/G-TUBE BID [facility] Last Admin: 09/15/17 21:23 Dose: 40 mg Heparin Sodium (Porcine) (Heparin) 5,000 unit SQ Q12HR [facility] Last Admin: 09/15/17 21:24 Dose: 5,000 unit Hydrocortisone (Hydrocortisone 1% Cream) 1 applic TOPICAL BID [facility] Last Admin: 09/15/17 22:01 Dose: Not Given Sodium Chloride (Saline 0.9%) 1,000 mls @ 100 mls/hr IV .Q10H [facility] Last Admin: 09/15/17 17:58 Dose: 100 mls/hr Vancomycin HCl 1,750 mg/ (Sodium Chloride) 250 mls @ 125 mls/hr IVPB Q12HR [facility] Last Admin: 09/15/17 21:22 Dose: 125 mls/hr Ipratropium [place] (Atrovent Nebulized) 0.5 mg INHALATION RT-QID PRN PRN Reason: Shortness Of Breath Loratadine (Claritin) 10 mg PEG/G-TUBE DAILY [facility] Last Admin: 09/15/17 09:15 Dose: 10 mg Lorazepam (Ativan) 1 mg PO TID PRN PRN Reason: Anxiety Miscellaneous Information (Pneumonia Protocol Utilized) 1 each PO ONCE PRN PRN Reason: Per Protocol Non-Formulary Medication (Silace 150mg/15ml) 100 mg PEG/G-TUBE BID [facility] Last Admin: 09/15/17 22:02 Dose: Not Given Potassium Chloride (K-Dur 10) 10 meq PO BID [facility] Last Admin: 09/15/17 21:23 Dose: 10 meq Valproic Acid (Depakene Syrup) 625 mg PEG/G-TUBE QID [facility] Last Admin: 09/15/17 21:22 Dose: 625 mg Home Medications Medication Instructions Recorded Confirmed Type Acetaminophen Tab [Tylenol] 1,000 mg PEG/G-TUBE Q6HR PRN 10/04/16 09/11/17 History Albuterol Nebulized [Ventolin 2.5 mg INHALATION RT-QID PRN 10/04/16 09/11/17 History Nebulized] Divalproex Sodium [Depakote] 500 mg PEG/G-TUBE QID 10/04/16 09/11/17 History Docusate [Colace] 200 mg PEG/G-TUBE BID 10/04/16 09/11/17 History Ipratropium Nebulized [Atrovent 0.5 mg INHALATION RT-QID PRN 10/04/16 09/11/17 History Nebulized] Loratadine 10 mg PEG/G-TUBE DAILY 10/04/16 09/11/17 History Potassium Chloride ER [K-Dur 10] 10 meq PEG/G-TUBE BID 10/04/16 09/11/17 History carBAMazepine [TEGretol] 400 mg PEG/G-TUBE TID 10/04/16 09/11/17 History Atorvastatin [Lipitor] 20 mg PEG/G-TUBE HS 05/31/17 09/11/17 History Hydrocortisone Cream 1 applic TOPICAL BID 05/31/17 09/11/17 History [Hydrocortisone 1% Cream] Divalproex Sodium [Depakote 125 mg PEG/G-TUBE QID 06/05/17 09/11/17 History Sprinkle] Furosemide [Lasix] 40 mg PEG/G-TUBE BID 06/05/17 09/11/17 History Fluconazole [Diflucan] 100 mg PEG/G-TUBE DAILY 08/14/17 09/11/17 History Ferrous Sulfate 330 mg PEG/G-TUBE DAILY 09/11/17 09/11/17 History LORazepam [Ativan] 1 mg PO TID PRN 09/11/17 09/11/17 History Silace 150mg/15ml 100 mg PEG/G-TUBE BID 09/11/17 09/11/17 History Allergies Allergy/AdvReac Type Severity Reaction Status Date / Time No Known Allergies Allergy Verified 09/11/17 21:40 Physical Exam Vitals: Vital Signs Temp Pulse Resp BP Pulse Ox 09/15/17 15:00 97.3 F L 89 18 120/74 94 L 09/15/17 07:00 97.3 F L 83 18 113/72 97 Intake and Output 09/15/17 09/15/17 09/15/17 06:59 14:59 22:59 Intake Total 1510 440 440 Balance 1510 440 440 Intake: IV 850 Piperacillin-Tazobactam 3 50 .375 gm In Dextrose/Water 1 50ml.bag @ 12.5 mls/hr IVPB Q8HR [facility] Rx#: [id number] Sodium Chloride 0.9% 1, 800 000 ml @ 100 mls/hr IV . Q10H [facility] Rx#:[id number] Tube Feeding 660 440 440 Other: Voiding Method Diaper Diaper Diaper Incontinent Incontinent Incontinent # Voids 3 2 1 # Bowel Movements 2 Weight 76 kg 76 kg Patient Weight 09/16/17 06:59 Weight 76 kg HEENT: Anicteric conjunctiva are pink and moist nasal mucosa grossly intact without significant lesions, oral cavity is dry Neck: The neck is supple without significant lymphadenopathy or thyromegaly. Lungs: Good bilateral air entry without significant crackles or wheezing. There is no significant bronchial sounds. There is no egophony or dullness. Heart: Regular rate and rhythm with an audible S1-S2, no S3 no S4. There is no significant murmur click or rub, PMI was nondisplaced. Abdomen: Positive bowel sounds soft and nontender without palpable masses or organomegaly. There was no guarding or rebound. Extremities: The upper extremities have excellent pulses they are symmetric, no significant petechiae or telangiectasia. No splinter hemorrhages were noted. The lower extremities are free from significant edema. The peripheral pulses were 2+ and symmetric. Neuro: The patient is awake listening to music. He has a waxing and waning character of bursts of profanity followed by calmness. Results CBC & Chem 7: 09/11/17 22:00 09/11/17 22:00 Labs: Microbiology - Last 24 Hours (Table) 09/13/17 17:45 Gram Stain - Preliminary Mouth Wound Culture - Preliminary Presumptive MRSA 09/11/17 22:00 Blood Culture - Preliminary Blood No Growth after 72 hours Laboratory Results WBC 15.9 k/uL (3.8-10.6) H 09/11/17 22:00 RBC 4.30 m/uL (4.30-5.90) 09/11/17 22:00 Hgb 11.6 gm/dL (13.0-17.5) L 09/11/17 22:00 Hct 37.0 % (39.0-53.0) L 09/11/17 22:00 MCV 86.2 fL (80.0-100.0) 09/11/17 22:00 MCH 27.0 pg (25.0-35.0) 09/11/17 22:00 MCHC 31.4 g/dL (31.0-37.0) 09/11/17 22:00 RDW 14.9 % (11.5-15.5) 09/11/17 22:00 Plt Count 496 k/uL (150-450) H 09/11/17 22:00 Neutrophils % 80 % 09/11/17 22:00 Lymphocytes % 11 % 09/11/17 22:00 Monocytes % 6 % 09/11/17 22:00 Eosinophils % 1 % 09/11/17 22:00 Basophils % 0 % 09/11/17 22:00 Neutrophils # 12.7 k/uL (1.3-7.7) H 09/11/17 22:00 Lymphocytes # 1.8 k/uL (1.0-4.8) 09/11/17 22:00 Monocytes # 0.9 k/uL (0-1.0) 09/11/17 22:00 Eosinophils # 0.2 k/uL (0-0.7) 09/11/17 22:00 Basophils # 0.1 k/uL (0-0.2) 09/11/17 22:00 Hypochromasia Moderate 09/11/17 22:00 Sodium 138 mmol/L (137-145) 09/11/17 22:00 Potassium 4.3 mmol/L (3.5-5.1) 09/11/17 22:00 Chloride 96 mmol/L (98-107) L 09/11/17 22:00 Carbon Dioxide 32 mmol/L (22-30) H 09/11/17 22:00 Anion Gap 10 mmol/L 09/11/17 22:00 BUN 18 mg/dL (9-20) 09/11/17 22:00 Creatinine 0.60 mg/dL (0.66-1.25) L 09/11/17 22:00 Est GFR (MDRD) Af Amer >60 (>60 ml/min/1.73 sqM) 09/11/17 22:00 Est GFR (MDRD) Non-Af >60 (>60 ml/min/1.73 sqM) 09/11/17 22:00 Glucose 117 mg/dL (74-99) H 09/11/17 22:00 Lactic Ac Sepsis Rflx Y 09/11/17 22:49 Plasma Lactic Acid Hermes 1.3 mmol/L (0.7-2.0) 09/12/17 02:03 Calcium 9.7 mg/dL (8.4-10.2) 09/11/17 22:00 Total Bilirubin 0.7 mg/dL (0.2-1.3) 09/11/17 22:00 AST 42 U/L (17-59) 09/11/17 22:00 ALT 20 U/L (21-72) L 09/11/17 22:00 Alkaline Phosphatase 94 U/L (38-126) 09/11/17 22:00 Total Protein 8.0 g/dL (6.3-8.2) 09/11/17 22:00 Albumin 4.1 g/dL (3.5-5.0) 09/11/17 22:00 Urine Color Light Yellow 09/11/17 22:27 Urine Appearance Clear (Clear) 09/11/17 22:27 Urine pH 7.5 (5.0-8.0) 09/11/17 22:27 Ur Specific [place] 1.008 (1.001-1.035) 09/11/17 22:27 Urine Protein Negative (Negative) 09/11/17 22:27 Urine Glucose (UA) Negative (Negative) 09/11/17 22:27 Urine Ketones Negative (Negative) 09/11/17 22:27 Urine Blood Moderate (Negative) H 09/11/17 22:27 Urine Nitrite Negative (Negative) 09/11/17 22: Urine Bilirubin Negative (Negative) 09/11/17 22:27 Urine Urobilinogen <2.0 mg/dL (<2.0) 09/11/17 22:27 Ur Leukocyte Esterase Negative (Negative) 09/11/17 22:27 Urine RBC 14 /hpf (0-5) H 09/11/17 22:27 Urine WBC 1 /hpf (0-5) 09/11/17 22:27 Ur Squamous Epith Cells <1 /hpf (0-4) 09/11/17 22:27 Hyaline Casts 1 /lpf (0-2) 09/11/17 22:27 Influenza Type A RNA Not Detected (Not Detectd) 09/11/17 22:30 Influenza Type B (PCR) Not Detected (Not Detectd) 09/11/17 22:30 Microbiology 09/13/17 17:45 Mouth Gram Stain - Preliminary 09/13/17 17:45 Mouth Wound Culture - Preliminary Presumptive MRSA 09/11/17 22:00 Blood Blood Culture - Preliminary No Growth after 72 hours 09/13/17 17:45 Mouth Anaerobic Culture - Preliminary Assessment and Plan (1) Traumatic brain injury Current Visit: No Status: Acute Code(s): S06.9X9A - UNSP INTRACRANIAL INJURY W LOC OF UNSP DURATION, INIT SNOMED Code(s): 951316478 (2) MRSA infection Narrative/Plan: 57-year-old male presents to Hospital from his [facility] because of altered mental status and fever. He has been seen by pulmonary critical care and there is concerns to pulmonary fibrosis but not likely acute pneumonia possibly some interstitial edema is occurring. The patient has multiple other medical troubles including a left hemiparesis from his traumatic brain injury and seizures. He does have a PEG tube in place. With isolation of MRSA antibiotic therapy is altered to trimethoprim sulfamethoxazole elixir which can be utilized for 10 days for the current infection. No plans for intravenous antibiotic therapy. Current Visit: Yes Status: Acute Code(s): A49.02 - METHICILLIN RESIS STAPH INFECTION, UNSP SITE SNOMED Code(s): 442690885
[2017-09-16 00:17] VITALS: RESP 16
[2017-09-16] MEDS: SULFAMETHOX-TMP 200-40MG/5ML 20 ML CUP PEG/G-TUBE SCH ×2 (00:33→08:56)
[2017-09-16 08:17] VITALS: BP 149/65; PULSE 71; TEMP 98.6
[2017-09-16 08:37] LABS: Anion Gap 8 mmol/L; Blood Urea Nitrogen 10 mg/dL (9-20); Calcium 9.2 mg/dL (8.4-10.2); Carbon Dioxide 26 mmol/L (22-30); Chloride 111 mmol/L (98-107); Glucose 100 mg/dL (74-99); Non-African American GFR(MDRD) >60 (>60 ml/min/1.73 sqM); Potassium 3.9 mmol/L (3.5-5.1); Sodium 145 mmol/L (137-145)
[2017-09-16] MEDS: HEPARIN SODIUM,PORCINE 5,000 UNIT/ML 1 ML VIAL SQ SCH (08:54)
[2017-09-16] MEDS: FUROSEMIDE 40 MG TAB PEG/G-TUBE SCH (08:54)
[2017-09-16] MEDS: LORATADINE 10 MG TAB PEG/G-TUBE SCH (08:54)
[2017-09-16] MEDS: FLUCONAZOLE 100 MG TAB PEG/G-TUBE SCH (08:54)
[2017-09-16] MEDS: FERROUS SULFATE 325 MG TAB PO SCH (08:54)
[2017-09-16] MEDS: POTASSIUM CHLORIDE ER 10 MEQ TAB.ER.PRT PO SCH (08:54)
[2017-09-16] MEDS: DOCUSATE ORAL SOLN 100 MG/10 ML CUP PEG/G-TUBE SCH (08:55)
[2017-09-16] MEDS: carBAMazepine 200 MG TAB PEG/G-TUBE SCH (08:55)
[2017-09-16] MEDS: VALPROIC ACID ORAL SOLN 250 MG/5 ML CUP PEG/G-TUBE SCH (08:56)
--- NOTE | 2017-09-16 10:50 | P.PN ---
Subjective Progress Note Date: 09/16/17 Principal diagnosis: Fever, mental status change, cough, pulmonary fibrosis This is a 57-year-old male with a history of a traumatic brain injury. The patient has a history of follow outbursts of verbal profanity. The patient is not a particularly good historian. Face very inappropriate things. Anyway, the patient apparently came in with a possible temperature elevation. The patient is very difficult to assess. Does not appear to have any respiratory difficulty or hemodynamic issues. The patient does have a history of heart failure COPD hyperlipidemia hypertension memory impairment pneumonia seizure disorder outbursts of verbal profanity traumatic brain injury left hemiparesis incontinence of stool and urine. He resides at [facility]. He does have a PEG inserted for feeding. On 09/15/2017 patient is seen in follow-up medical surgical floor. Doing well from pulmonary standpoint. He denies any dyspnea, no significant sputum production or chest congestion. Lung sounds positive for a few scattered rhonchi, diminished at the bases. He is wearing oxygen intermittently, she is 97% on room air. He hasn't had any fever since admission. Wound culture of his mouth is positive for presumptive MRSA. She is currently on Augmentin, Diflucan, vancomycin. Infectious disease service has been consulted. On 09/16/2017 patient is seen in follow-up on medical surgical floor. He is doing well, he denies any respiratory issues, he is comfortable in no acute distress noted. Hemodynamically stable, afebrile. Respirations are even and nonlabored. Lung sounds are clear to auscultation. Infectious disease consult has been noted and appreciated. The plan is to discharge patient back to [facility] medical [facility] today on 10 day course of Bactrim via the PEG tube for the presumptive MRSA in the mouth wound culture. Objective - Vital Signs Vital signs: Vital Signs Temp 98.6 F 09/16/17 07:00 Pulse 71 09/16/17 07:00 Resp 16 09/16/17 07:00 BP 149/65 09/16/17 07:00 Pulse Ox 96 09/16/17 07:00 Intake & Output 09/15/17 09/16/17 09/16/17 18:59 06:59 18:59 Intake Total 880 880 Balance 880 880 Weight 76 kg 76 kg Intake: Tube Feeding 880 880 Other: Voiding Method Diaper Diaper Incontinent Incontinent # Voids 1 1 - Exam No acute distress, not oriented to person place or time HEENT examination is grossly unremarkable. Mucous membranes are moist. No oral lesions. Neck supple. Full range of motion. No adenopathy thyromegaly or neck vein distention. Cardiovascular examination reveals regular rhythm rate. S1-S2 normal. No S3 or S4. No discernible murmur noted. Lungs sounds are clear. No wheezes. No crackles. Breath sounds are diminished. Abdomen soft bowel sounds are heard. No masses or tenderness. Extremities are intact. No cyanosis clubbing or edema. Skin is without rash or lesion. Neurologic examination is near impossible to assess. - Labs CBC & Chem 7: 09/11/17 22:00 09/16/17 07:29 Labs: Abnormal Lab Results - Last 24 Hours (Table) 09/16/17 Range/Units 07:29 Chloride 111 H (98-107) mmol/L Creatinine 0.49 L (0.66-1.25) mg/dL Glucose 100 H (74-99) mg/dL Microbiology - Last 24 Hours (Table) 09/11/17 22:00 Blood Culture - Preliminary Blood No Growth after 96 hours 09/13/17 17:45 Gram Stain - Preliminary Mouth Wound Culture - Preliminary Presumptive MRSA Assessment and Plan Plan: Assessment: #1. Acute tracheobronchitis with underlying history of pulmonary fibrosis #2. Acute sepsis, from unspecified source #3. Acute leukocytosis and lactic acidosis related to sepsis #4. Debility. Debility #5. Dysphagia, with chronic aspiration risk #6. Traumatic brain injury #7. History of a stroke with left hemiparesis #3. Seizure disorder. #9. Mouth wound preliminary culture positive for presumptive MRSA #10. He resides at [facility] Plan: Patient seems to be stable from pulmonary standpoint, is stable on room air, O2 sat at 97%. Afebrile. He denies dyspnea, no significant sputum production or chest congestion. Infectious disease consult was noted and appreciated. Ten- day course of Bactrim was recommended via the PEG tube for the presumptive MRSA in the mouth wound culture. Oral Diflucan will continue. No active pulmonary complaints, stable for discharge to [facility] in the next 24 hours. I performed a history & physical examination of the patient and discussed their management with my nurse practitioner, Romi Mckeon. I reviewed the nurse practitioner's note and agree with the documented findings and plan of care. Lung sounds are clear to auscultation. The findings and the impression was discussed with the patient. I attest to the documentation by the nurse practitioner. Time with Patient: Less than 30
[2017-09-16] MEDS: DOCUSATE PEG/G-TUBE SCH (11:32)
[2017-09-16 13:22] LABS: Basophils % (A) 0 %; CH 26.3; CHCM 28.8; Eosinophils # (A) 0.3 k/uL (0-0.7); Eosinophils % (A) 5 %; HCT 33.5 % (39.0-53.0); HDW 2.76; Hypochromasia Marked; Luc # (Auto) 0.09; Luc % (Auto) 2; Lymphocytes # (A) 1.6 k/uL (1.0-4.8); Lymphocytes % (A) 26 %; MCH 26.6 pg (25.0-35.0); MCHC 29.1 g/dL (31.0-37.0); Mean Platelet Volume 8.7; Monocytes # (A) 0.4 k/uL (0-1.0); Monocytes % (A) 7 %; Neutrophils # (A) 3.6 k/uL (1.3-7.7); Neutrophils % (A) 60 %; RBC 3.67 m/uL (4.30-5.90); RDW 14.7 % (11.5-15.5); WBC 6.1 k/uL (3.8-10.6); WBC (Perox) 6.49
--- NOTE | 2017-09-16 13:31 | PN ---
PROGRESS NOTE DATE OF SERVICE: 09/15/2017 This is a 57-year-old white male who has a long-standing history of closed head injury with mental impairment and seizure disorder and the patient also has chronic obstructive pulmonary disease and chronic extensive pulmonary fibrosis. The patient was admitted to the hospital with altered mental status and he was found to have possible pneumonia superimposed on pulmonary fibrosis. The patient also has symptoms of sepsis and the patient was started on IV antibiotics, currently receiving Levaquin and Zosyn. The patient was seen by Dr. Pacheco in consultation and the patient's overall general condition improved, but still he was extremely lethargic. He recently had extraction of all his teeth and there was a culture and sensitivity test done from the mouth and apparently this showed MRSA. The patient was started on vancomycin and Dr. Almeida has been consulted. Overall prognosis guarded. He is still extremely lethargic, but otherwise the vital signs are stable. He has dysphagia and he is being fed through a PEG tube. We will continue vancomycin and Dr. Almeida consultation pending. As I am going out of town on vacation, Dr. Cabrera will see the patient for me until I return. FARHANA / SHERIN: [id number] /
[2017-09-16 13:34] LABS: HGB 9.8 gm/dL (13.0-17.5); MCV 91.4 fL (80.0-100.0)
--- NOTE | 2017-09-16 14:52 | DS ---
DISCHARGE SUMMARY DATA: NO CODE. Height is 6 feet, weight 76 kg, body surface area 1.98 m2, and body mass index 22.7 kg/m2. ALLERGY: Unknown. DATE OF ADMISSION: 09/11/2017 DATE OF DISCHARGE: 09/16/2017. ATTENDING PHYSICIAN: Dr. Alexander Bhandari. CONSULTING PHYSICIAN: 1. Dr. Edward Pacheco, Pulmonary. 2. Dr. Carleen Zimmer, Pulmonary. 3. Dr. Thony Almeida, Infectious Disease. FINAL DIAGNOSES: 1. High risk of probability of pneumonia. 2. Pulmonary fibrosis with the hypoxemia. 3. Fever and change of mental status. 4. 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 5. Pulmonary fibrosis associated with recurrent aspiration pneumonia. 6. Questionable sepsis. 7. History of bilateral lower extremity edema, resolved. 8. History of chronic obstructive pulmonary disease exacerbation with questionable sepsis. The patient admitted through the emergency room from [facility] with the history that he had verbal profanity and he is unable to give history and except that coughing and short of breath and was seen by Dr. José Miguel Pacheco on the 12 of September with the impression with the pneumonia and sepsis, however, found subsequently and has been treated with the antibiotic IV. Found by swipe of the oropharynx, however, he is edentulous, that he had MRSA. Consultation with Dr. Almeida who started him on Bactrim/Septra liquid and cleared him for discharge home. The patient also seen by Dr. Pacheco with his impression of pulmonary fibrosis and as he was treated, Dr. Zimmer followed him on 09/15/2017 and his impression at that time that the patient had acute tracheobronchitis with a history of pulmonary fibrosis, acute sepsis, acute leukocytosis and lactic acidosis related to sepsis; debility; dysphagia with the chronic aspiration; traumatic brain injury; history of stroke with the left hemiparesis; seizure disorder. Subsequently his PA Lashaun Mckeon did follow up on the patient and released the patient. Today, on examination, the patient is conscious. He is alert. 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 Otherwise patient is unable to eat with the underlying use of the PEG tube for feeding. He has no infection around the PEG tube. On the physical exam indicating his vital signs stable with temperature 98.6, pulse 69 and heart rate of 71, respiratory rate of 16, blood pressure 149/65 with a mean 93. He is on 2 L nasal cannula with 96 with the understandable that the patient also on oxygen at the [facility] facility. His chest is created with the able to exchange bilaterally with the underlying dry crackles on the bases bilateral and the heart is PMI in the 5th intercostal space with normal S1, S2. No gallop. The abdomen PEG tube placement and he has soft, positive bowel sounds. No tenderness. He had no inguinal lymph node with positive pulses with good perfusion to the lower extremities and he had a left upper and lower extremity hemiparesis and able to move in the right arm and right leg. The pulses intact bilaterally and no edema. Neurological examination was indicating that the patient unable to comprehend and unable to understand and he has had foul words in mouth with the profanity. Then the patient's assessment is stable at this time and as he cleared from the Infectious Disease and Pulmonary and to be discharge today to [facility] and the patient will continue with the Bactrim through the PEG for 7-10 days and followed by Dr. Alexander Bhandari in 1 week as outpatient and actually Dr. Bhandari is to go there to [facility] to evaluate the patient and see him and patient will be released today for discharge. The time spent total is more than 30 minutes. MICHAELL / MARKN: [id number] /
== END 2017-09-16 15:30 | disposition home or self-care (01) | DRG 720 ==
LOC: EC 21:16 → 5MS5E 23:31
PROVIDERS: ADMIT Internal Medicine; ATTEND Internal Medicine
DX: A41.9 Sepsis, unspecified organism (principal); I11.0 Hypertensive heart disease with heart failure; J18.9 Pneumonia, unspecified organism; I50.9 Heart failure, unspecified; J44.0 Chronic obstructive pulmonary disease with (acute) lower respiratory infection; R13.10 Dysphagia, unspecified; J84.10 Pulmonary fibrosis, unspecified; I69.354 Hemiplegia and hemiparesis following cerebral infarction affecting left non-dominant side; S01.502A Unspecified open wound of oral cavity, initial encounter; E78.5 Hyperlipidemia, unspecified; B95.62 Methicillin resistant Staphylococcus aureus infection as the cause of diseases classified elsewhere; F09 Unspecified mental disorder due to known physiological condition; F91.9 Conduct disorder, unspecified; G40.909 Epilepsy, unspecified, not intractable, without status epilepticus; J20.9 Acute bronchitis, unspecified; J44.9 Chronic obstructive pulmonary disease, unspecified; R09.02 Hypoxemia; Z87.820 Personal history of traumatic brain injury; R32 Unspecified urinary incontinence; R15.9 Full incontinence of feces; F32.9 Major depressive disorder, single episode, unspecified; R60.9 Edema, unspecified; Z79.899 Other long term (current) drug therapy; Z87.891 Personal history of nicotine dependence; Z93.1 Gastrostomy status; X58.XXXA Exposure to other specified factors, initial encounter; Y92.9 Unspecified place or not applicable
CPT/HCPCS: 36415; 71010; 80048; 80053; 81001; 83605; 85025; 87040; 87070; 87075; 87077; 87186; 87205; 87502; 96365; 99285

== ENCOUNTER → 2017-12-12 | Outpatient (CLI) | payer OTHER ==
[2017-12-12 11:34] VITALS: BMI 25.1
== END | disposition home or self-care (01) ==
LOC: MNTWWP 09:53
PROVIDERS: ATTEND Internal Medicine
DX: Z71.3 Dietary counseling and surveillance (principal); R13.10 Dysphagia, unspecified; E46 Unspecified protein-calorie malnutrition
CPT/HCPCS: 97802

== ENCOUNTER 2018-01-17 10:41 | Inpatient (IN) | payer OTHER ==
[2018-01-17] MEDS ORDERED: SODIUM CHLORIDE 0.9% 1,000 ML IV STA ×3 (11:23→13:07)
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
[2018-01-17 12:13] LABS: Basophils % (A) 0 %; Eosinophils # (A) 0.4 k/uL (0-0.7); Eosinophils % (A) 4 %; HCT 44.5 % (39.0-53.0); HGB 13.2 gm/dL (13.0-17.5); Hypochromasia Moderate; Lymphocytes # (A) 3.4 k/uL (1.0-4.8); Lymphocytes % (A) 28 %; MCH 26.8 pg (25.0-35.0); MCHC 29.7 g/dL (31.0-37.0); MCV 90.4 fL (80.0-100.0); Mean Platelet Volume 8.7; Monocytes # (A) 0.7 k/uL (0-1.0); Monocytes % (A) 6 %; Neutrophils # (A) 7.2 k/uL (1.3-7.7); Neutrophils % (A) 60 %; Platelet Count 309 k/uL (150-450); RBC 4.92 m/uL (4.30-5.90); RDW 15.3 % (11.5-15.5)
[2018-01-17 12:21] LABS: ALT 20 U/L (21-72); AST 31 U/L (17-59); Albumin 4.3 g/dL (3.5-5.0); Alkaline Phosphatase 87 U/L (38-126); Anion Gap 15 mmol/L; Blood Urea Nitrogen 40 mg/dL (9-20); Carbamazepine (Tegretol) 6.7 ug/mL; Carbon Dioxide 37 mmol/L (22-30); Chloride 112 mmol/L (98-107); Glucose 119 mg/dL (74-99); Magnesium 2.5 mg/dL (1.6-2.3); Potassium 3.9 mmol/L (3.5-5.1); Total Bilirubin 0.4 mg/dL (0.2-1.3)
[2018-01-17 12:23] LABS: Appearance,Urine Clear (Clear); Bilirubin,Urine Negative (Negative); Blood,Urine Trace (Negative); Color,Urine Light Yellow; Glucose,Urine (UA) Negative (Negative); Hyaline Casts,Urine 3 /lpf (0-2); Ketones,Urine Negative (Negative); Leukocyte Esterase,Urine Negative (Negative); Mucus,Urine Rare /hpf; Nitrite,Urine Negative (Negative); Protein,Urine Negative (Negative); RBC,Urine 1 /hpf (0-5); Specific Gravity,Urine 1.008 (1.001-1.035); Squamous Epithelial Cell,Urine <1 /hpf (0-4); Urobilinogen,Urine <2.0 mg/dL (<2.0); WBC,Urine 1 /hpf (0-5)
[2018-01-17 12:30] LABS: Sodium 164 mmol/L (137-145)
[2018-01-17 12:50] LABS: Creatine Kinase MB 0.3 ng/mL (0.0-2.4)
--- NOTE | 2018-01-17 13:00 | XR ---
EXAMINATION TYPE: XR chest 2V DATE OF EXAM: 01/17/2018 HISTORY: cough. REFERENCE: Previous study dated 10/19/2017. FINDINGS: There is chronic elevation of the left hemidiaphragm. The heart appears prominent. There is chronic interstitial disease. I do not see definite superimposed pneumonia or edema. Pleural spaces appear clear. IMPRESSION: CHRONIC INTERSTITIAL FIBROSIS.
[2018-01-17] MEDS ORDERED: cefTRIAXone IN SWFI 1,000 MG/10 ML SYRINGE IVP STA (13:07)
[2018-01-17] MEDS ORDERED: LEVOFLOXACIN 750MG-D5W PMX 750 MG in DEXTROSE/WATER 1 150ML.BAG IVPB STA (14:59)
[2018-01-17] MEDS ORDERED: PNEUMONIA PROTOCOL UTILIZED 1 EACH MISC PO PRN (14:59)
[2018-01-17] MEDS ORDERED: LORazepam 1 MG TAB PEG/G-TUBE PRN (15:04)
[2018-01-17] MEDS ORDERED: ACETAMINOPHEN TAB 500 MG TAB PEG/G-TUBE PRN (15:04)
[2018-01-17] MEDS ORDERED: MAGNESIUM HYDROXIDE 2,400 MG/10 ML CUP PEG/G-TUBE PRN (15:04)
[2018-01-17] MEDS ORDERED: DIVALPROEX SPRINKLE 125 MG CAP.SPRINK PO SCH (17:30)
[2018-01-17] MEDS ORDERED: risperiDONE ORAL SOLN 5 MG/5 ML CUP PEG/G-TUBE SCH (17:30)
[2018-01-17] MEDS: risperiDONE 1 MG TAB PEG/G-TUBE SCH ×2 (18:01→20:04)
[2018-01-17] MEDS: PIPERACILLIN-TAZOBACTAM 3.375 GM in DEXTROSE/WATER 1 50ML.BAG IVPB SCH (18:01)
[2018-01-17] MEDS: DIVALPROEX SPRINKLE 125 MG CAP.SPRINK PEG/G-TUBE SCH ×2 (18:01→20:04)
[2018-01-17] MEDS: SODIUM CHLORIDE 0.9% 1,000 ML IV SCH (18:02)
[2018-01-17] MEDS: IPRATROPIUM-ALBUTEROL 3 ML NEB INHALATION SCH ×3 (20:02→23:38)
[2018-01-17] MEDS: FUROSEMIDE 20 MG TAB PEG/G-TUBE SCH (20:04)
[2018-01-17] MEDS: POTASSIUM BICARBONATE/CIT AC 20 MEQ TABLET.EFF PO SCH (20:04)
[2018-01-17] MEDS: FERROUS SULFATE ORAL ELIXIR 300 MG/5 ML CUP PEG/G-TUBE SCH (20:04)
[2018-01-17] MEDS: carBAMazepine 200 MG TAB PEG/G-TUBE SCH (20:04)
[2018-01-17] MEDS: ATORVASTATIN 20 MG TAB PEG/G-TUBE SCH (20:04)
[2018-01-17] MEDS: HYDROCORTISONE 1% CREAM 30 GM TUBE TOPICAL SCH (20:06)
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
[2018-01-18] MEDS: SODIUM CHLORIDE 0.9% 1,000 ML IV SCH ×2 (00:07→12:00)
[2018-01-18] MEDS: PIPERACILLIN-TAZOBACTAM 3.375 GM in DEXTROSE/WATER 1 50ML.BAG IVPB SCH ×3 (02:48→19:01)
[2018-01-18] MEDS: IPRATROPIUM-ALBUTEROL 3 ML NEB INHALATION SCH ×5 (04:32→21:01)
--- NOTE | 2018-01-18 07:25 | XR ---
EXAMINATION TYPE: XR chest 2V DATE OF EXAM: 01/18/2018 HISTORY: pneumonia. REFERENCE: Previous study dated 01/17/2018. FINDINGS: There is coarse interstitial fibrosis. The heart is mildly prominent. No definite superimpo sed lobar pneumonia is seen. Pleural spaces appear clear. IMPRESSION: COARSE INTERSTITIAL FIBROSIS.
[2018-01-18] MEDS: risperiDONE 1 MG TAB PEG/G-TUBE SCH ×4 (10:41→21:25)
[2018-01-18] MEDS: DIVALPROEX SPRINKLE 125 MG CAP.SPRINK PEG/G-TUBE SCH ×4 (10:42→21:24)
[2018-01-18] MEDS: carBAMazepine 200 MG TAB PEG/G-TUBE SCH ×3 (10:42→21:25)
[2018-01-18] MEDS: FUROSEMIDE 20 MG TAB PEG/G-TUBE SCH (10:42)
[2018-01-18] MEDS: POTASSIUM BICARBONATE/CIT AC 20 MEQ TABLET.EFF PO SCH ×2 (10:43→21:26)
[2018-01-18] MEDS: HYDROCORTISONE 1% CREAM 30 GM TUBE TOPICAL SCH ×2 (10:43→21:27)
[2018-01-18] MEDS: LORATADINE 10 MG TAB PEG/G-TUBE SCH (10:43)
[2018-01-18] MEDS: DEXTROSE 5% IN WATER 1,000 ML IV SCH ×2 (10:44→21:37)
[2018-01-18 10:46] LABS: Anion Gap 12 mmol/L; Blood Urea Nitrogen 27 mg/dL (9-20); Calcium 8.8 mg/dL (8.4-10.2); Carbon Dioxide 29 mmol/L (22-30); Glucose 101 mg/dL (74-99); Potassium 4.2 mmol/L (3.5-5.1)
[2018-01-18 10:54] LABS: Chloride 121 mmol/L (98-107)
[2018-01-18 10:55] LABS: Sodium 162 mmol/L (137-145)
--- NOTE | 2018-01-18 12:30 | P.NPCON ---
History of Present Illness - Reason for Consult hypernatremia - History of Present Illness Reason for consultation: Hypernatremia History of present illness: Patient is a 57-year-old male seen in consultation for hypernatremia. His sodium level was 164 on admission. He was initially started on 0.9 saline at 1 25 mL an hour. Sodium level this morning is 162. He is currently resting in bed. Denies chest pain or shortness of breath. Overall he feels well. Patient is not a very reliable historian as he does have history of a closed head injury as well as seizure disorder. He receives feeding through PEG tube. He is also maintained on Lasix 60 mg twice daily. Patient developed fever and chills and was also more confused than usual and was subsequently sent to the hospital for further care. Hemodynamically stable. GFR is at baseline. Tub feeding is currently held due to concern for aspiration. He's been afebrile this admission. UA is quite benign and not suggestive of a UTI. He is currently maintained on IV Zosyn and levofloxacin. Vital signs are stable. General: The patient appeared well nourished and normally developed. HEENT: Head exam is unremarkable. Neck is without jugular venous distension. LUNGS: Lungs are clear to auscultation and percussion. Breath sounds decreased. HEART: Rate and Rhythm are regular. First and second heart sounds normal. No murmurs, rubs or gallops. ABDOMEN: Abdominal exam reveals normal bowel sounds. Non-tender and non- distended. No evidence of peritonitis. EXTREMITITES: No clubbing, cyanosis, or edema. 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 History of Any Multi-Drug Resistant Organisms: MRSA Date of last positivie culture/infection: 09/13/17 MDRO Source:: mrsa mouth Past Surgical History: Unable to Obtain Additional Past Surgical History / Comment(s): BARSAnna RESIDENTAL; PEG inserted 06/27/17, teeth extration 2016 Past Anesthesia/Blood Transfusion Reactions: Unable to Obtain Past Psychological History: Depression Smoking Status: Former smoker Past Alcohol Use History: None Reported Additional Past Alcohol Use History / Comment(s): PER PAST MEDICAL HX- PAST HX OF SMOKING AND ETOH Past Drug Use History: None Reported - Past Family History Father Family Medical History: Unable to Obtain Mother Family Medical History: Unable to Obtain Medications and Allergies Home Medications Medication Instructions Recorded Confirmed Type Acetaminophen Tab [Tylenol] 1,000 mg PEG/G-TUBE Q6HR PRN 10/04/16 01/17/18 History Albuterol Nebulized [Ventolin 2.5 mg INHALATION RT-QID PRN 10/04/16 01/17/18 History Nebulized] Divalproex Sodium [Depakote] 500 mg PEG/G-TUBE QID@,,,10/04/16 History Ipratropium Nebulized [Atrovent 0.5 mg INHALATION RT-QID PRN 10/04/16 01/17/18 History Nebulized] Loratadine 10 mg PEG/G-TUBE DAILY@0800 10/04/16 01/17/18 History carBAMazepine [TEGretol] 200 mg PEG/G-TUBE 10/04/16 01/17/18 History TID@0800,1399,1999 Atorvastatin [Lipitor] 20 mg PEG/G-TUBE HS@199905/31/17 01/17/18 History Divalproex Sodium [Depakote 125 mg PEG/G-TUBE QID@08,,,06/05/17 01/17/18 History Sprinkle] Silace 150mg/15ml 100 mg PEG/G-TUBE BID@08,199909/11/17 01/17/18 History Magnesium Hydroxide [Milk of 2,400 mg PEG/G-TUBE DIRECTED PRN 10/18/17 History Magnesia] Sennosides-Docusate Sodium 1 tab PEG/G-TUBE TID@0800,1400,199910/18/17 History [Senokot-S] Ferrous Sulfate 330 ml PEG/G-TUBE HS@199901/17/18 01/17/18 History Furosemide Oral Soln [Lasix] 60 mg PEG/G-TUBE BID@0800,199901/17/18 01/17/18 History Hydrocortisone Cream 1 applic TOPICAL BID@08,199901/17/18 01/17/18 History [Hydrocortisone 1% Cream] LORazepam [Ativan] 1 mg PEG/G-TUBE TID PRN 01/17/18 01/17/18 History Potassium Chloride Oral Liquid 5 meq PEG/G-TUBE BID@0800,199901/17/18 01/17/18 History risperiDONE ORAL SOLN [RisperDAL 1 mg PEG/G-TUBE QID@08,12,16,20 01/17/18 History ORAL SOLN] Allergies Allergy/AdvReac Type Severity Reaction Status Date / Time No Known Allergies Allergy Verified 01/17/18 12:11 Physical Exam Vitals: Vital Signs Temp Pulse Pulse Resp BP BP Pulse Ox 01/18/18 12:00 80 01/18/18 11:49 80 01/18/18 08:19 80 01/18/18 08:08 80 01/18/18 07:00 97.9 F 96 16 121/76 99 01/18/18 04:41 84 01/18/18 04:33 84 01/17/18 23:47 80 01/17/18 23:38 80 01/17/18 23:00 97.5 F L 78 16 117/65 99 01/17/18 20:29 88 01/17/18 20:15 88 01/17/18 18:27 97.2 F L 96 22 125/70 98 01/17/18 17:26 97.0 F L 82 20 110/67 96 01/17/18 14:47 91 20 123/79 96 Intake and Output 01/17/18 01/18/18 01/18/18 22:59 06:59 14:59 Other: Voiding Method Diaper # Voids 2 2 Results - Lab Results Most recent lab results Calcium 8.8 mg/dL (8.4-10.2) 01/18/18 10:18 Magnesium 2.5 mg/dL (1.6-2.3) H 01/17/18 11:57 01/17/18 11:57 01/18/18 10:18 Assessment and Plan Plan: Assessment: #1. Hypovolemic hypernatremia secondary to lack of oral water intake. Sodium level CLXIV on admission and 162 this morning. #2. History of closed head injury. #3. Fever with concern for aspiration pneumonia. #4. History of seizure disorder. Plan: Continue with D5W to be run at 100 mL an hour. Recheck sodium level at 8 PM today. Decrease Lasix to 60 mg once daily. Follow-up cultures. Thank you for the consultation. I will continue to follow the patient with you during his hospital stay.
[2018-01-18] MEDS: LEVOFLOXACIN 750MG-D5W PMX 750 MG in DEXTROSE/WATER 1 150ML.BAG IVPB SCH (15:14)
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
[2018-01-18] MEDS ORDERED: IPRATROPIUM-ALBUTEROL 3 ML NEB INHALATION PRN (21:02)
[2018-01-18] MEDS: ATORVASTATIN 20 MG TAB PEG/G-TUBE SCH (21:26)
[2018-01-18] MEDS: FERROUS SULFATE ORAL ELIXIR 300 MG/5 ML CUP PEG/G-TUBE SCH (21:26)
[2018-01-19] MEDS: PIPERACILLIN-TAZOBACTAM 3.375 GM in DEXTROSE/WATER 1 50ML.BAG IVPB SCH ×3 (01:23→18:35)
[2018-01-19] MEDS: DEXTROSE 5% IN WATER 1,000 ML IV SCH ×6 (01:23→21:23)
[2018-01-19] MEDS: IPRATROPIUM-ALBUTEROL 3 ML NEB INHALATION SCH ×4 (07:18→19:24)
[2018-01-19 08:58] LABS: Anion Gap 9 mmol/L; Blood Urea Nitrogen 17 mg/dL (9-20); Calcium 8.9 mg/dL (8.4-10.2); Carbon Dioxide 37 mmol/L (22-30); Chloride 110 mmol/L (98-107); Glucose 96 mg/dL (74-99); Potassium 3.3 mmol/L (3.5-5.1); Sodium 156 mmol/L (137-145)
[2018-01-19] MEDS: carBAMazepine 200 MG TAB PEG/G-TUBE SCH ×3 (09:24→21:21)
[2018-01-19] MEDS: LORATADINE 10 MG TAB PEG/G-TUBE SCH (09:24)
[2018-01-19] MEDS: POTASSIUM BICARBONATE/CIT AC 20 MEQ TABLET.EFF PO SCH ×2 (09:25→21:22)
[2018-01-19] MEDS: FUROSEMIDE 20 MG TAB PEG/G-TUBE SCH (09:25)
[2018-01-19] MEDS: DIVALPROEX SPRINKLE 125 MG CAP.SPRINK PEG/G-TUBE SCH ×4 (09:26→21:20)
[2018-01-19] MEDS: risperiDONE 1 MG TAB PEG/G-TUBE SCH ×4 (09:26→21:21)
[2018-01-19] MEDS: HYDROCORTISONE 1% CREAM 30 GM TUBE TOPICAL SCH ×2 (09:26→21:22)
[2018-01-19] MEDS ORDERED: POTASSIUM CHLORIDE ER 20 MEQ TAB.ER PO STA (10:10)
--- NOTE | 2018-01-19 10:34 | P.PN ---
Subjective Patient is seen in follow-up for hyponatremia. Sodium level was 164 on admission and has been gradually trending down. he was 156 this morning. He is currently maintained on D5 W. Patient is not a very reliable historian. Denies any active complaints. Vital signs are stable. General: The patient appeared well nourished and normally developed. HEENT: Head exam is unremarkable. Neck is without jugular venous distension. LUNGS: Lungs are clear to auscultation and percussion. Breath sounds decreased. HEART: Rate and Rhythm are regular. First and second heart sounds normal. No murmurs, rubs or gallops. ABDOMEN: Abdominal exam reveals normal bowel sounds. Non-tender and non- distended. No evidence of peritonitis. EXTREMITITES: No clubbing, cyanosis, or edema. Objective - Vital Signs Vital signs: Vital Signs Temp 97.9 F 01/19/18 06:29 Pulse 89 01/19/18 07:28 Resp 16 01/19/18 06:29 BP 105/62 01/19/18 06:29 Pulse Ox 99 01/19/18 06:29 Intake & Output 01/18/18 01/19/18 01/19/18 18:59 06:59 18:59 Other: Voiding Method Diaper Diaper # Voids 2 3 1 # Bowel Movements 0 - Labs CBC & Chem 7: 01/17/18 11:57 01/19/18 08:24 Labs: Abnormal Lab Results - Last 24 Hours (Table) 01/18/18 01/18/18 01/19/18 Range/Units 10:18 21:50 08:24 Sodium 162 H* 157 H 156 H (137-145) mmol/L Potassium 3.3 L (3.5-5.1) mmol/L Chloride 121 H* 110 H (98-107) mmol/L Carbon Dioxide 37 H (22-30) mmol/L BUN 27 H (9-20) mg/dL Creatinine 0.64 L (0.66-1.25) mg/dL Glucose 101 H (74-99) mg/dL Microbiology - Last 24 Hours (Table) 01/17/18 11:57 Urine Culture - Final Urine,Catheterized 01/17/18 11:57 Blood Culture - Preliminary Blood No Growth after 24 hours Assessment and Plan Plan: Assessment: #1. Hypovolemic hypernatremia secondary to lack of oral water intake. Sodium level 164 on admission and 156 this morning. #2. History of closed head injury. #3. Fever with concern for aspiration pneumonia. #4. History of seizure disorder. #5. Hypokalemia secondary to diuresis. Mg replete. Plan: Continue with D5W to be run at 100 mL an hour. Recheck sodium level at 5 PM today. continue Lasix to 60 mg once daily. Follow-up cultures. Replace potassium. Additional 40 mEq today.
[2018-01-19] MEDS: LEVOFLOXACIN 750MG-D5W PMX 750 MG in DEXTROSE/WATER 1 150ML.BAG IVPB SCH (15:29)
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
[2018-01-19] MEDS: ATORVASTATIN 20 MG TAB PEG/G-TUBE SCH (21:21)
[2018-01-19] MEDS: FERROUS SULFATE ORAL ELIXIR 300 MG/5 ML CUP PEG/G-TUBE SCH (21:22)
[2018-01-20] MEDS: PIPERACILLIN-TAZOBACTAM 3.375 GM in DEXTROSE/WATER 1 50ML.BAG IVPB SCH ×3 (02:37→17:31)
[2018-01-20] MEDS: DEXTROSE 5% IN WATER 1,000 ML IV SCH ×2 (05:56→14:55)
[2018-01-20] MEDS: IPRATROPIUM-ALBUTEROL 3 ML NEB INHALATION SCH ×4 (07:21→19:08)
[2018-01-20] MEDS: FUROSEMIDE 20 MG TAB PEG/G-TUBE SCH (07:35)
[2018-01-20] MEDS: LORATADINE 10 MG TAB PEG/G-TUBE SCH (07:35)
[2018-01-20] MEDS: risperiDONE 1 MG TAB PEG/G-TUBE SCH ×4 (07:35→20:12)
[2018-01-20] MEDS: HYDROCORTISONE 1% CREAM 30 GM TUBE TOPICAL SCH ×2 (07:35→20:11)
[2018-01-20] MEDS: DIVALPROEX SPRINKLE 125 MG CAP.SPRINK PEG/G-TUBE SCH ×4 (07:36→20:11)
[2018-01-20] MEDS: carBAMazepine 200 MG TAB PEG/G-TUBE SCH ×3 (07:36→20:12)
[2018-01-20] MEDS: POTASSIUM BICARBONATE/CIT AC 20 MEQ TABLET.EFF PO SCH ×2 (07:36→20:11)
[2018-01-20 09:42] LABS: Anion Gap 9 mmol/L; Blood Urea Nitrogen 12 mg/dL (9-20); Carbon Dioxide 34 mmol/L (22-30); Chloride 104 mmol/L (98-107); Glucose 121 mg/dL (74-99); Magnesium 2.2 mg/dL (1.6-2.3); Potassium 3.3 mmol/L (3.5-5.1); Sodium 147 mmol/L (137-145)
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
[2018-01-20] MEDS ORDERED: POTASSIUM CHLORIDE ER 20 MEQ TAB.ER PO STA (10:24)
--- NOTE | 2018-01-20 11:31 | P.PN ---
Subjective Patient is seen in follow-up for hypernatremia. Sodium level was 164 on admission and has been gradually trending down. It was 147 this morning. He is currently maintained on D5W. Patient is not a very reliable historian. Denies any active complaints. He is also now receiving tube feeds. Vital signs are stable. General: The patient appeared well nourished and normally developed. HEENT: Head exam is unremarkable. Neck is without jugular venous distension. LUNGS: Lungs are clear to auscultation and percussion. Breath sounds decreased. HEART: Rate and Rhythm are regular. First and second heart sounds normal. No murmurs, rubs or gallops. ABDOMEN: Abdominal exam reveals normal bowel sounds. Non-tender and non- distended. No evidence of peritonitis. EXTREMITITES: No clubbing, cyanosis, or edema. Objective - Vital Signs Vital signs: Vital Signs Temp 98.8 F 01/20/18 06:27 Pulse 82 01/20/18 07:36 Resp 16 01/20/18 06:27 BP 122/73 01/20/18 06:27 Pulse Ox 98 01/20/18 06:27 Intake & Output 01/19/18 01/20/18 01/20/18 18:59 06:59 18:59 Intake Total 0 0 Balance 0 0 Weight 81.647 kg 77.5 kg Intake: Tube Feeding 0 0 Other: Voiding Method Diaper Diaper # Voids 2 1 - Labs CBC & Chem 7: 01/17/18 11:57 01/20/18 08:49 Labs: Abnormal Lab Results - Last 24 Hours (Table) 01/19/18 01/20/18 Range/Units 17:20 08:49 Sodium 155 H 147 H (137-145) mmol/L Potassium 3.3 L (3.5-5.1) mmol/L Carbon Dioxide 34 H (22-30) mmol/L Creatinine 0.63 L (0.66-1.25) mg/dL Glucose 121 H (74-99) mg/dL Microbiology - Last 24 Hours (Table) 01/17/18 11:57 Blood Culture - Preliminary Blood No Growth after 48 hours Assessment and Plan Plan: Assessment: #1. Hypovolemic hypernatremia secondary to lack of oral water intake. Sodium level 164 on admission and 147 this morning. #2. History of closed head injury. #3. Fever with concern for aspiration pneumonia. #4. History of seizure disorder. #5. Hypokalemia secondary to diuresis. Mg replete. Plan: Discontinue D5W. 400 mL every 4 hours of water with tube feeds. Continue Lasix to 60 mg once daily. Follow-up cultures. Replace potassium. Additional 60 mEq today.
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
[2018-01-20] MEDS: LEVOFLOXACIN 750MG-D5W PMX 750 MG in DEXTROSE/WATER 1 150ML.BAG IVPB SCH (14:58)
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
[2018-01-20] MEDS: FERROUS SULFATE ORAL ELIXIR 300 MG/5 ML CUP PEG/G-TUBE SCH (20:11)
[2018-01-20] MEDS: ATORVASTATIN 20 MG TAB PEG/G-TUBE SCH (20:12)
[2018-01-21] MEDS: PIPERACILLIN-TAZOBACTAM 3.375 GM in DEXTROSE/WATER 1 50ML.BAG IVPB SCH (02:32)
[2018-01-21] MEDS: IPRATROPIUM-ALBUTEROL 3 ML NEB INHALATION SCH ×4 (08:31→19:51)
[2018-01-21 09:43] LABS: Anion Gap 10 mmol/L; Blood Urea Nitrogen 11 mg/dL (9-20); Calcium 9.4 mg/dL (8.4-10.2); Carbon Dioxide 33 mmol/L (22-30); Chloride 105 mmol/L (98-107); Glucose 112 mg/dL (74-99); Potassium 3.9 mmol/L (3.5-5.1); Sodium 148 mmol/L (137-145)
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
[2018-01-21] MEDS: risperiDONE 1 MG TAB PEG/G-TUBE SCH ×4 (10:52→22:18)
[2018-01-21] MEDS: carBAMazepine 200 MG TAB PEG/G-TUBE SCH ×3 (10:52→22:18)
[2018-01-21] MEDS: POTASSIUM BICARBONATE/CIT AC 20 MEQ TABLET.EFF PO SCH ×2 (10:52→22:19)
[2018-01-21] MEDS: FUROSEMIDE 20 MG TAB PEG/G-TUBE SCH (10:53)
[2018-01-21] MEDS: DIVALPROEX SPRINKLE 125 MG CAP.SPRINK PEG/G-TUBE SCH ×4 (10:53→22:18)
[2018-01-21] MEDS: LORATADINE 10 MG TAB PEG/G-TUBE SCH (10:53)
[2018-01-21] MEDS: HYDROCORTISONE 1% CREAM 30 GM TUBE TOPICAL SCH ×2 (10:54→22:20)
--- NOTE | 2018-01-21 11:14 | P.PN ---
Subjective Patient is seen in follow-up for hypernatremia. Sodium level was 164 on admission and has been gradually trending down. It is stable at 148 today. He is currently maintained on free water with tube feeds. Patient is not a very reliable historian. Denies any active complaints. Vital signs are stable. General: The patient appeared well nourished and normally developed. HEENT: Head exam is unremarkable. Neck is without jugular venous distension. LUNGS: Lungs are clear to auscultation and percussion. Breath sounds decreased. HEART: Rate and Rhythm are regular. First and second heart sounds normal. No murmurs, rubs or gallops. ABDOMEN: Abdominal exam reveals normal bowel sounds. Non-tender and non- distended. No evidence of peritonitis. EXTREMITITES: No clubbing, cyanosis, or edema. Objective - Vital Signs Vital signs: Vital Signs Temp 97.6 F 01/21/18 07:00 Pulse 80 01/21/18 08:45 Resp 16 01/21/18 07:00 BP 123/69 01/21/18 07:00 Pulse Ox 100 01/21/18 07:00 Intake & Output 01/20/18 01/21/18 01/21/18 18:59 06:59 18:59 Intake Total 440 Balance 440 Intake: Tube Feeding 440 Other: Voiding Method Diaper Diaper Diaper # Voids 2 2 # Bowel Movements 1 - Labs CBC & Chem 7: 01/17/18 11:57 01/21/18 08:52 Labs: Abnormal Lab Results - Last 24 Hours (Table) 01/21/18 Range/Units 08:52 Sodium 148 H (137-145) mmol/L Carbon Dioxide 33 H (22-30) mmol/L Creatinine 0.62 L (0.66-1.25) mg/dL Glucose 112 H (74-99) mg/dL Microbiology - Last 24 Hours (Table) 01/17/18 11:57 Blood Culture - Preliminary Blood No Growth after 72 hours Assessment and Plan Plan: Assessment: #1. Hypovolemic hypernatremia secondary to lack of oral water intake. Sodium level 164 on admission and 148 this morning. #2. History of closed head injury. #3. Fever with concern for aspiration pneumonia. #4. History of seizure disorder. #5. Hypokalemia secondary to diuresis. Mg replete. Improved post replacement. Plan: Discontinued D5W. Increase free water flushes to 500 mL every 4 hours of water with tube feeds. Continue Lasix to 60 mg once daily. Follow-up cultures.
[2018-01-21] MEDS: AMOXIC-POT CLAV 500-125 MG 1 EACH TAB PO SCH (22:18)
[2018-01-21] MEDS: ATORVASTATIN 20 MG TAB PEG/G-TUBE SCH (22:18)
[2018-01-21] MEDS: FERROUS SULFATE ORAL ELIXIR 300 MG/5 ML CUP PEG/G-TUBE SCH (22:18)
[2018-01-22] MEDS: AMOXIC-POT CLAV 500-125 MG 1 EACH TAB PO SCH ×2 (07:18→23:33)
[2018-01-22] MEDS: DIVALPROEX SPRINKLE 125 MG CAP.SPRINK PEG/G-TUBE SCH ×4 (07:18→22:20)
[2018-01-22] MEDS: POTASSIUM BICARBONATE/CIT AC 20 MEQ TABLET.EFF PO SCH ×2 (07:18→22:20)
[2018-01-22] MEDS: FUROSEMIDE 20 MG TAB PEG/G-TUBE SCH (07:18)
[2018-01-22] MEDS: carBAMazepine 200 MG TAB PEG/G-TUBE SCH ×3 (07:18→22:21)
[2018-01-22] MEDS: LORATADINE 10 MG TAB PEG/G-TUBE SCH (07:18)
[2018-01-22] MEDS: risperiDONE 1 MG TAB PEG/G-TUBE SCH ×4 (07:18→22:20)
[2018-01-22] MEDS: HYDROCORTISONE 1% CREAM 30 GM TUBE TOPICAL SCH ×2 (07:34→22:21)
[2018-01-22] MEDS: IPRATROPIUM-ALBUTEROL 3 ML NEB INHALATION SCH ×4 (08:22→19:59)
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
[2018-01-22 09:56] LABS: Anion Gap 12 mmol/L; Blood Urea Nitrogen 12 mg/dL (9-20); Calcium 9.2 mg/dL (8.4-10.2); Carbon Dioxide 33 mmol/L (22-30); Chloride 102 mmol/L (98-107); Glucose 84 mg/dL (74-99); Potassium 3.7 mmol/L (3.5-5.1); Sodium 147 mmol/L (137-145)
--- NOTE | 2018-01-22 11:22 | P.PN ---
Subjective Patient is seen in follow-up for hypernatremia. Sodium level was 164 on admission and has been gradually trending down. It is stable at 147 today. He is currently maintained on free water with tube feeds. Patient is not a very reliable historian. Denies any active complaints. Vital signs are stable. General: The patient appeared well nourished and normally developed. HEENT: Head exam is unremarkable. Neck is without jugular venous distension. LUNGS: Lungs are clear to auscultation and percussion. Breath sounds decreased. HEART: Rate and Rhythm are regular. First and second heart sounds normal. No murmurs, rubs or gallops. ABDOMEN: Abdominal exam reveals normal bowel sounds. Non-tender and non- distended. No evidence of peritonitis. EXTREMITITES: No clubbing, cyanosis, or edema. Objective - Vital Signs Vital signs: Vital Signs Temp 97.2 F L 01/22/18 07:00 Pulse 87 01/22/18 08:33 Resp 18 01/22/18 08:00 BP 101/64 01/22/18 07:00 Pulse Ox 95 01/22/18 07:00 Intake & Output 01/21/18 01/22/18 01/22/18 18:59 06:59 18:59 Intake Total 660 990 Balance 660 990 Weight 78 kg Intake: Tube Feeding 660 990 Other: Voiding Method Diaper Diaper Diaper # Voids 2 1 # Bowel Movements 1 - Labs CBC & Chem 7: 01/17/18 11:57 01/22/18 08:59 Labs: Abnormal Lab Results - Last 24 Hours (Table) 01/22/18 Range/Units 08:59 Sodium 147 H (137-145) mmol/L Carbon Dioxide 33 H (22-30) mmol/L Creatinine 0.50 L (0.66-1.25) mg/dL Microbiology - Last 24 Hours (Table) 01/17/18 11:57 Blood Culture - Preliminary Blood No Growth after 96 hours Assessment and Plan Plan: Assessment: #1. Hypovolemic hypernatremia secondary to lack of oral water intake. Sodium level 164 on admission and 147 this morning. #2. History of closed head injury. #3. Fever with concern for aspiration pneumonia. #4. History of seizure disorder. #5. Hypokalemia secondary to diuresis. Mg replete. Improved post replacement. Plan: Discontinued D5W. Increase free water flushes to 600 mL every 4 hours of water with tube feeds. Continue Lasix to 60 mg once daily. Repeat electrolytes in the morning.
[2018-01-22] MEDS: FERROUS SULFATE ORAL ELIXIR 300 MG/5 ML CUP PEG/G-TUBE SCH (22:20)
[2018-01-22] MEDS: ATORVASTATIN 20 MG TAB PEG/G-TUBE SCH (22:20)
[2018-01-22 23:31] LABS: Glucose,Whole Blood 131 mg/dL (75-99)
[2018-01-23] MEDS: IPRATROPIUM-ALBUTEROL 3 ML NEB INHALATION SCH ×4 (07:20→19:31)
[2018-01-23] MEDS: carBAMazepine 200 MG TAB PEG/G-TUBE SCH ×3 (08:20→20:51)
[2018-01-23] MEDS: POTASSIUM BICARBONATE/CIT AC 20 MEQ TABLET.EFF PO SCH ×2 (08:21→20:50)
[2018-01-23] MEDS: FUROSEMIDE 20 MG TAB PEG/G-TUBE SCH (08:21)
[2018-01-23] MEDS: LORATADINE 10 MG TAB PEG/G-TUBE SCH (08:21)
[2018-01-23] MEDS: DIVALPROEX SPRINKLE 125 MG CAP.SPRINK PEG/G-TUBE SCH ×4 (08:22→20:51)
[2018-01-23] MEDS: HYDROCORTISONE 1% CREAM 30 GM TUBE TOPICAL SCH ×2 (08:22→20:52)
[2018-01-23] MEDS: AMOXIC-POT CLAV 500-125 MG 1 EACH TAB PO SCH ×2 (08:22→20:51)
[2018-01-23] MEDS: risperiDONE 1 MG TAB PEG/G-TUBE SCH ×4 (08:22→20:50)
[2018-01-23 09:46] VITALS: BMI 24.2
--- NOTE | 2018-01-23 09:56 | P.PN ---
Subjective Patient is seen in follow-up for hypernatremia. Sodium level was 164 on admission and has been gradually trending down. It was 147 yesterday. He is currently maintained on free water with tube feeds. Patient is not a very reliable historian. Denies any active complaints. Vital signs are stable. General: The patient appeared well nourished and normally developed. HEENT: Head exam is unremarkable. Neck is without jugular venous distension. LUNGS: Lungs are clear to auscultation and percussion. Breath sounds decreased. HEART: Rate and Rhythm are regular. First and second heart sounds normal. No murmurs, rubs or gallops. ABDOMEN: Abdominal exam reveals normal bowel sounds. Non-tender and non- distended. No evidence of peritonitis. EXTREMITITES: No clubbing, cyanosis, or edema. Objective - Vital Signs Vital signs: Vital Signs Temp 97.0 F L 01/23/18 07:00 Pulse 84 01/23/18 07:31 Resp 22 01/23/18 07:00 BP 100/66 01/23/18 07:00 Pulse Ox 94 L 01/23/18 07:00 Intake & Output 01/22/18 01/23/18 01/23/18 18:59 06:59 18:59 Weight 76.5 kg 76.5 kg Other: Voiding Method Diaper Diaper # Voids 1 1 # Bowel Movements 1 - Labs CBC & Chem 7: 01/17/18 11:57 01/22/18 08:59 Labs: Abnormal Lab Results - Last 24 Hours (Table) 01/22/18 01/22/18 Range/Units 08:59 23:27 Sodium 147 H (137-145) mmol/L Carbon Dioxide 33 H (22-30) mmol/L Creatinine 0.50 L (0.66-1.25) mg/dL POC Glucose (mg/dL) 131 H (75-99) mg/dL Microbiology - Last 24 Hours (Table) 01/17/18 11:57 Blood Culture - Preliminary Blood No Growth after 120 hours Assessment and Plan Plan: Assessment: #1. Hypovolemic hypernatremia secondary to lack of oral water intake. Sodium level 164 on admission and 147 yesterday morning. #2. History of closed head injury. #3. Fever with concern for aspiration pneumonia. #4. History of seizure disorder. #5. Hypokalemia secondary to diuresis. Mg replete. Improved post replacement. Plan: Discontinued D5W. Maintain free water flushes 600 mL every 4 hours with tube feeds. Continue Lasix to 60 mg once daily. Repeat electrolytes in the morning. F/u AM labs.
--- NOTE | 2018-01-23 10:08 | FL ---
COMPARISON: NONE DATE OF EXAM: 01/19/2018 HISTORY: Dysphasia A number of thin and thick substances were ingested under the care of the department of speech pathol ogy. There is penetration and aspiration with thin barium. There is delayed oral clearance and hilario cular pooling. IMPRESSION: 1. Penetration and aspiration with thin barium.
[2018-01-23 11:36] LABS: Anion Gap 13 mmol/L; Blood Urea Nitrogen 13 mg/dL (9-20); Calcium 9.9 mg/dL (8.4-10.2); Carbon Dioxide 32 mmol/L (22-30); Chloride 102 mmol/L (98-107); Glucose 112 mg/dL (74-99); Potassium 4.3 mmol/L (3.5-5.1); Sodium 147 mmol/L (137-145)
[2018-01-23] MEDS: FERROUS SULFATE ORAL ELIXIR 300 MG/5 ML CUP PEG/G-TUBE SCH (20:51)
[2018-01-23] MEDS: ATORVASTATIN 20 MG TAB PEG/G-TUBE SCH (20:51)
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
[2018-01-24 07:06] VITALS: BP 119/56; RESP 24; TEMP 98.7
[2018-01-24] MEDS: IPRATROPIUM-ALBUTEROL 3 ML NEB INHALATION SCH ×2 (07:39→11:10)
[2018-01-24] MEDS: FUROSEMIDE 20 MG TAB PEG/G-TUBE SCH (07:51)
[2018-01-24] MEDS: risperiDONE 1 MG TAB PEG/G-TUBE SCH ×2 (07:51→11:31)
[2018-01-24] MEDS: POTASSIUM BICARBONATE/CIT AC 20 MEQ TABLET.EFF PO SCH (07:51)
[2018-01-24] MEDS: carBAMazepine 200 MG TAB PEG/G-TUBE SCH (07:52)
[2018-01-24] MEDS: HYDROCORTISONE 1% CREAM 30 GM TUBE TOPICAL SCH (07:52)
[2018-01-24] MEDS: LORATADINE 10 MG TAB PEG/G-TUBE SCH (07:52)
[2018-01-24] MEDS: AMOXIC-POT CLAV 500-125 MG 1 EACH TAB PO SCH (07:52)
[2018-01-24] MEDS: DIVALPROEX SPRINKLE 125 MG CAP.SPRINK PEG/G-TUBE SCH ×2 (07:52→11:31)
[2018-01-24 08:11] LABS: Anion Gap 10 mmol/L; Blood Urea Nitrogen 12 mg/dL (9-20); Calcium 9.5 mg/dL (8.4-10.2); Carbon Dioxide 31 mmol/L (22-30); Chloride 101 mmol/L (98-107); Glucose 108 mg/dL (74-99); Potassium 3.7 mmol/L (3.5-5.1); Sodium 142 mmol/L (137-145)
--- NOTE | 2018-01-24 11:09 | P.PN ---
Subjective Progress Note Date: 01/24/18 Seen and examined for the follow-up of hyponatremia. Currently on PEG tube feeding. Objective - Vital Signs Vital signs: Vital Signs Temp 98.7 F 01/24/18 07:00 Pulse 77 01/24/18 07:49 Resp 24 01/24/18 07:00 BP 119/56 01/24/18 07:00 Pulse Ox 94 L 01/24/18 07:00 Intake & Output 01/23/18 01/24/18 01/24/18 18:59 06:59 18:59 Intake Total 990 990 Balance 990 990 Weight 77.5 kg 80 kg Intake: Tube Feeding 990 990 Other: Voiding Method Diaper - Exam No acute distress S1-S2 heard Lungs clear No edema - Labs CBC & Chem 7: 01/17/18 11:57 01/24/18 07:29 Labs: Abnormal Lab Results - Last 24 Hours (Table) 01/23/18 01/24/18 Range/Units 10:16 07:29 Sodium 147 H (137-145) mmol/L Carbon Dioxide 32 H 31 H (22-30) mmol/L Creatinine 0.50 L 0.50 L (0.66-1.25) mg/dL Glucose 112 H 108 H (74-99) mg/dL Microbiology - Last 24 Hours (Table) 01/17/18 11:57 Blood Culture - Final Blood No Growth after 144 hours Assessment and Plan Assessment: Impression: #1 hypOvolemic hyponatremia secondary to lack of free water intake. #2 seizure disorder #3 history of closed head injury #4 hypokalemia with metabolic alkalosis, secondary to diuretics. Recommendations #1 currently on PEG tube feeds with free water every 4 hours. #2 discontinue Lasix #3 sodium improving repeat labs in the morning
[2018-01-24 11:21] VITALS: PULSE 80
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
--- NOTE | 2018-01-24 18:41 | PN ---
PROGRESS NOTE DATE OF SERVICE: 01/22/2018. This is a 57-year-old white male who was admitted with altered mental status and fever and chills and the patient was found to have pneumonia. The patient is known to have closed head injury several years ago and the patient has mental impairment and a seizure disorder and also has chronic obstructive pulmonary disease. The patient recently developed dysphagia and recurrent aspiration pneumonia and the patient was started on tube feeding via a PEG tube. At the time of admission, patient was found to have aspiration pneumonia and also severe dehydration and severe hypernatremia. The patient was seen by a filterer in consultation and patient also is being followed by Dr. Byers, who is a webbing inspector. The patient's serum sodium is improving and it was 160 at the time of admission, which has come down to 147 and filterer still following the patient and when his electrolytes become normal and his respiratory status also improves, [facility] Overall prognosis is guarded. MMODL / IJN: [id number] /
== END 2018-01-24 13:19 | disposition home or self-care (01) | DRG 871 ==
LOC: EC 10:41 → 4MS4W 14:59
PROVIDERS: ADMIT Internal Medicine; ATTEND Internal Medicine
DX: A41.9 Sepsis, unspecified organism (principal); J69.0 Pneumonitis due to inhalation of food and vomit; E87.3 Alkalosis; E87.0 Hyperosmolality and hypernatremia; R13.10 Dysphagia, unspecified; E87.1 Hypo-osmolality and hyponatremia; G81.94 Hemiplegia, unspecified affecting left nondominant side; J44.0 Chronic obstructive pulmonary disease with (acute) lower respiratory infection; I50.9 Heart failure, unspecified; I11.0 Hypertensive heart disease with heart failure; G40.909 Epilepsy, unspecified, not intractable, without status epilepticus; R65.20 Severe sepsis without septic shock; E86.0 Dehydration; F79 Unspecified intellectual disabilities; E78.5 Hyperlipidemia, unspecified; R15.9 Full incontinence of feces; R32 Unspecified urinary incontinence; E86.1 Hypovolemia; J98.6 Disorders of diaphragm; J84.10 Pulmonary fibrosis, unspecified; T50.2X5A Adverse effect of carbonic-anhydrase inhibitors, benzothiadiazides and other diuretics, initial encounter; E87.6 Hypokalemia; Z93.1 Gastrostomy status; Z87.01 Personal history of pneumonia (recurrent); Z99.81 Dependence on supplemental oxygen; Z86.14 Personal history of Methicillin resistant Staphylococcus aureus infection; Z87.891 Personal history of nicotine dependence; Z79.899 Other long term (current) drug therapy; Z87.820 Personal history of traumatic brain injury
CPT/HCPCS: 36415; 51701; 71045; 71046; 74230; 80048; 80053; 80156; 81001; 82550; 82553; 83605; 83735; 84295; 85025; 87040; 87086; 94640; 94760; 96361; 96365; 96375; 99284

== ENCOUNTER 2018-08-10 14:04 | Observation (INO) | payer OTHER ==
[2018-08-10] MEDS ORDERED: SODIUM CHLORIDE 0.9% 500 ML 500 ML IV STA (14:45)
[2018-08-10] MEDS ORDERED: DEXAMETHASONE SOD PHOSPHATE 10 MG/ML 1 ML VIAL IV STA (14:47)
[2018-08-10] MEDS ORDERED: IPRATROPIUM 0.5 MG/2.5 ML NEBU INHALATION STA (14:47)
[2018-08-10] MEDS ORDERED: ALBUTEROL NEBULIZED 2.5 MG/3 ML INHALATION STA (14:47)
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
[2018-08-10] MEDS ORDERED: AZITHROMYCIN 500 MG in SODIUM CHLORIDE 0.9% 250 ML IVPB STA (14:51)
[2018-08-10 15:51] LABS: ALT 28 U/L (21-72); AST 21 U/L (17-59); Albumin 3.9 g/dL (3.5-5.0); Alkaline Phosphatase 91 U/L (38-126); Anion Gap 12 mmol/L; Blood Urea Nitrogen 15 mg/dL (9-20); Calcium 9.7 mg/dL (8.4-10.2); Carbon Dioxide 29 mmol/L (22-30); Chloride 103 mmol/L (98-107); Glucose 98 mg/dL (74-99); Potassium 4.2 mmol/L (3.5-5.1); Sodium 144 mmol/L (137-145); Total Bilirubin 0.2 mg/dL (0.2-1.3); Total Protein 6.9 g/dL (6.3-8.2)
[2018-08-10 16:12] LABS: Basophils % (A) 0 %; Eosinophils # (A) 0.2 k/uL (0-0.7); Eosinophils % (A) 2 %; HCT 38.9 % (39.0-53.0); HGB 12.7 gm/dL (13.0-17.5); Lymphocytes # (A) 2.4 k/uL (1.0-4.8); Lymphocytes % (A) 22 %; MCH 28.1 pg (25.0-35.0); MCHC 32.6 g/dL (31.0-37.0); MCV 86.2 fL (80.0-100.0); Mean Platelet Volume 6.9; Monocytes % (A) 9 %; Neutrophils # (A) 7.2 k/uL (1.3-7.7); Neutrophils % (A) 66 %; Platelet Count 317 k/uL (150-450); RBC 4.51 m/uL (4.30-5.90); RDW 14.1 % (11.5-15.5); WBC 11.1 k/uL (3.8-10.6)
--- NOTE | 2018-08-10 16:46 | XR ---
EXAMINATION: XR chest 2V DATE AND TIME: 08/10/2018 4:35 PM CLINICAL INDICATION: Pain TECHNIQUE: PA and lateral COMPARISON: 01/20/2018 FINDINGS: Previously seen markedly elevated left hemidiaphragm is redemonstrated. Mildly elevated right hemidia phragm redemonstrated. No abnormal gas collections. No definite pleural effusions. Moderate-marked enlargement of the cardiac silhouette redemonstrated. There is a coarse reticular pattern of increased density throughout the lungs bilaterally with scatte red regions of coalescence. The shadows have the appearance of chronic interstitial lung changes. How ever, in this setting, it is impossible to exclude pneumonia on a radiographic basis. It is noted, ho wedali, that the lung parenchymal pattern is similar to the study of 01/20/2018. Skeletal structures: No definite acute findings. IMPRESSION: ABNORMAL LUNG PARENCHYMAL EXAMINATION, DISCUSSED.
[2018-08-10] MEDS ORDERED: NALOXONE 0.4 MG/ML 1 ML VIAL IV PRN (16:54)
[2018-08-10] MEDS ORDERED: IPRATROPIUM-ALBUTEROL 3 ML NEB INHALATION PRN ×2 (16:56→23:01)
[2018-08-10] MEDS ORDERED: ACETAMINOPHEN TAB 500 MG TAB PEG/G-TUBE PRN (22:49)
[2018-08-10] MEDS ORDERED: MAGNESIUM HYDROXIDE 2,400 MG/10 ML CUP PEG/G-TUBE PRN (22:49)
[2018-08-10] MEDS ORDERED: LORazepam 1 MG TAB PEG/G-TUBE PRN (22:49)
[2018-08-11] MEDS: ATORVASTATIN 40 MG TAB PEG/G-TUBE SCH ×2 (01:00→21:18)
[2018-08-11] MEDS: SODIUM CHLORIDE 0.9% 1,000 ML IV SCH ×2 (01:01→16:19)
[2018-08-11] MEDS: DIVALPROEX 500 MG TABLET.DR PO SCH ×3 (01:01→21:18)
[2018-08-11] MEDS: carBAMazepine 200 MG TAB PEG/G-TUBE SCH ×3 (01:01→21:18)
[2018-08-11] MEDS: IPRATROPIUM-ALBUTEROL 3 ML NEB INHALATION SCH ×6 (01:07→20:31)
[2018-08-11] MEDS: HYDROCHLOROTHIAZIDE 25 MG TAB PEG/G-TUBE SCH (07:35)
[2018-08-11] MEDS: FERROUS SULFATE ORAL ELIXIR 300 MG/5 ML CUP PEG/G-TUBE SCH ×2 (07:35→21:18)
[2018-08-11] MEDS: CHOLECALCIFEROL 1,000 UNIT TAB PEG/G-TUBE SCH (07:35)
[2018-08-11] MEDS: LORATADINE 10 MG TAB PEG/G-TUBE SCH (07:35)
[2018-08-11] MEDS: SILACE PEG/G-TUBE SCH ×2 (07:36→21:19)
[2018-08-11] MEDS ORDERED: HYDROCORTISONE 1% CREAM 30 GM TUBE TOPICAL PRN (08:00)
[2018-08-11] MEDS: risperiDONE ORAL SOLN 5 MG/5 ML CUP PEG/G-TUBE SCH ×3 (09:08→21:18)
[2018-08-11] MEDS: AZITHROMYCIN 500 MG TAB PO SCH (09:08)
[2018-08-11] MEDS: predniSONE 20 MG TAB PO SCH (09:08)
--- NOTE | 2018-08-11 10:52 | P.HPIM ---
History of Present Illness H&P Date: 08/10/18 Chief Complaint: Sent from the [facility] for increased shortness of breath Mr. Marques is a 58-year-old male with a past medical history of traumatic brain injury, chronic debility coming in from assisted living facility for increased cough noisy breathing. Patient is a poor historian as he has traumatic brain injury. He cannot talk but he does not comprehend. As per the ED notes and nursing staff report the patient had worsening cough, nasal congestion and runny nose. Patient was given [id number] cough medications but still he persisted to have noisy breathing and also had a spike of temperature and so patient is brought for further evaluation. In the ED patient has been tested negative for influenza and had a chest x-ray that was showing coarse reticular pattern of increased density throughout both lungs. There is appearance of chronic interstitial lung disease. But the possibility of pneumonia could not be ruled out. Patient has been started on steroids, breathing treatments and antibiotics and admitted. Review of systems -could not be done as the patient is not a reliable source of information due to history of traumatic brain injury. 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 History of Any Multi-Drug Resistant Organisms: MRSA Date of last positivie culture/infection: 09/13/17 MDRO Source:: mrsa mouth Past Surgical History: Unable to Obtain Additional Past Surgical History / Comment(s): GILDARDO CHANCE; PEG inserted 06/27/17, teeth extration 2016 Past Anesthesia/Blood Transfusion Reactions: Unable to Obtain Past Psychological History: Depression Smoking Status: Former smoker Past Alcohol Use History: None Reported Past Drug Use History: None Reported - Past Family History Father Family Medical History: Unable to Obtain Mother Family Medical History: Unable to Obtain Medications and Allergies Home Medications Medication Instructions Recorded Confirmed Type Acetaminophen Tab [Tylenol] 1,000 mg PEG/G-TUBE Q6HR PRN 10/04/16 08/10/18 History Divalproex Sodium [Depakote] 500 mg PEG/G-TUBE BID@0800,2000 10/04/16/15/18 History Loratadine 10 mg PEG/G-TUBE DAILY@0800 10/04/16 08/10/18 History carBAMazepine [TEGretol] 200 mg PEG/G-TUBE BID@0800,199910/04/16 08/10/18 History Silace 150mg/15ml 100 mg PEG/G-TUBE BID@0800,199909/11/17 08/10/18 History Magnesium Hydroxide [Milk of 2,400 mg PEG/G-TUBE DIRECTED PRN 10/18/17 History Magnesia] Ferrous Sulfate 300 mg PEG/G-TUBE BID@0800,199901/17/18 08/10/18 History Hydrocortisone Cream 1 applic TOPICAL BID@00,1999 PRN 01/17/18 08/10/18 History [Hydrocortisone 1% Cream] LORazepam [Ativan] 1 mg PEG/G-TUBE TID PRN 01/17/18 08/10/18 History risperiDONE ORAL SOLN [RisperDAL 1 mg PEG/G-TUBE TID@0800,1399,199901/17/18 History ORAL SOLN] Atorvastatin [Lipitor] 40 mg PEG/G-TUBE HS 08/10/18 08/10/18 History Cholecalciferol (Vitamin D3) 2,000 unit PEG/G-TUBE DAILY 08/10/18 08/10/18 History [Vitamin D3] Hydrochlorothiazide [Hydrodiuril] 25 mg PEG/G-TUBE DAILY 08/10/18 08/10/18 History Ipratropium-Albuterol Nebulize 3 ml INHALATION RT-QID PRN 08/10/18 08/10/18 History [Duoneb 0.5 mg-3 mg/3 ml Soln] Allergies Allergy/AdvReac Type Severity Reaction Status Date / Time No Known Allergies Allergy Verified 08/10/18 14:50 Physical Exam Vitals: Vital Signs Temp Pulse Resp BP Pulse Ox 08/10/18 20:30 97 08/10/18 17:25 97.7 F 89 16 145/75 97 08/10/18 15:43 100 08/10/18 15:32 18 08/10/18 15:23 98 08/10/18 14:24 97.8 F 74 20 128/71 95 Intake and Output 08/10/18 08/10/18 08/10/18 06:59 14:59 22:59 Intake Total 1000 Balance 1000 Intake: Amount of Fluid Infused ( 1000 ml) Other: Weight 77.111 kg Limitations: altered mental status General Impression: Alert and not in acute distress HEENT: Normocephalic atraumatic, extra-ocular movements intact, pupils equal and reactive to light bilaterally, mucous membranes moist. Cardiovascular: Heart regular rate and rhythm, S1&S2 audible, no murmurs, rubs or gallops Chest: Coarse breath sounds bilaterally Abdomen: Bowel sounds present, abdomen soft, non-tender, non-distended, no organomegaly Extremties- no peripheral edema Neurological: CN II-XII grossly intact, no focal motor or sensory deficits noted Skin: Intact with no visualized rashes Psych: Normal affect and mood Results CBC & Chem 7: 08/10/18 15:05 08/10/18 15:05 Labs: Abnormal Lab Results - Last 24 Hours (Table) 08/10/18 08/10/18 Range/Units 15:05 15:05 WBC 11.1 H (3.8-10.6) k/uL Hgb 12.7 L (13.0-17.5) gm/dL Hct 38.9 L (39.0-53.0) % Creatinine 0.57 L (0.66-1.25) mg/dL Assessment and Plan Assessment: ASSESSMENT Acute exacerbation of COPD -possible pneumonia History of traumatic brain injury Increased risk of aspiration Hypertension Hyperlipidemia Seizure disorder PLAN: Will continue the patient on steroids, breathing treatments and prednisone. Will continue with azithromycin. Patient has been resumed on his home medications. Further recommendations to follow depending on the progress of the patient.
[2018-08-11 11:08] VITALS: BMI 23.7
--- NOTE | 2018-08-11 22:38 | P.PN ---
Subjective Progress Note Date: 08/11/18 Principal diagnosis: COPD exacerbation Mr. Marques is a 58-year-old male with a past medical history of traumatic brain injury, chronic debility coming in from assisted living facility for increased cough noisy breathing. Patient is a poor historian as he has traumatic brain injury. He cannot talk but he does not comprehend. As per the ED notes and nursing staff report the patient had worsening cough, nasal congestion and runny nose. Patient was given [id number] cough medications but still he persisted to have noisy breathing and also had a spike of temperature and so patient is brought for further evaluation. In the ED patient has been tested negative for influenza and had a chest x-ray that was showing coarse reticular pattern of increased density throughout both lungs. There is appearance of chronic interstitial lung disease. But the possibility of pneumonia could not be ruled out. Patient has been started on steroids, breathing treatments and antibiotics and admitted. Pt is a poor historian ,he denies any worsening of breathing or chest pain. Complete ROS cannot be done due to h/o TBI. Objective - Vital Signs Vital signs: Vital Signs Temp 97.7 F 08/11/18 14:37 Pulse 97 08/11/18 16:16 Resp 14 08/11/18 16:16 BP 118/49 08/11/18 14:37 Pulse Ox 100 08/11/18 14:37 Intake & Output 08/10/18 08/11/18 08/11/18 18:59 06:59 18:59 Intake Total 1200 275 Balance 1200 275 Weight 77.111 kg 76 kg 75 kg Intake: Amount of Fluid Infused ( 1000 ml) Oral 200 275 Other: # Voids 1 1 - Exam General Impression: Alert and not in acute distress HEENT: Normocephalic atraumatic, extra-ocular movements intact, pupils equal and reactive to light bilaterally, mucous membranes moist. Cardiovascular: Heart regular rate and rhythm, S1&S2 audible, no murmurs, rubs or gallops Chest: Coarse breath sounds bilaterally Abdomen: Bowel sounds present, abdomen soft, non-tender, non-distended, no organomegaly Extremties- no peripheral edema Neurological: CN II-XII grossly intact, no focal motor or sensory deficits noted Skin: Intact with no visualized rashes Psych: Normal affect and mood - Labs CBC & Chem 7: 08/10/18 15:05 08/10/18 15:05 Assessment and Plan Assessment: ASSESSMENT Acute exacerbation of COPD -possible pneumonia History of traumatic brain injury Increased risk of aspiration Hypertension Hyperlipidemia Seizure disorder PLAN: Will continue the patient on steroids, breathing treatments. Will continue with azithromycin. Patient has been resumed on his home medications. Further recommendations based on the clinical course.
[2018-08-11 22:53] VITALS: RESP 17
[2018-08-12] MEDS: IPRATROPIUM-ALBUTEROL 3 ML NEB INHALATION SCH ×4 (00:26→11:08)
[2018-08-12 06:02] VITALS: BP 118/65; TEMP 98.6
[2018-08-12 07:04] VITALS: PULSE 84
[2018-08-12] MEDS: DIVALPROEX 500 MG TABLET.DR PO SCH (08:10)
[2018-08-12] MEDS: carBAMazepine 200 MG TAB PEG/G-TUBE SCH (08:10)
[2018-08-12] MEDS: FERROUS SULFATE ORAL ELIXIR 300 MG/5 ML CUP PEG/G-TUBE SCH (08:10)
[2018-08-12] MEDS: risperiDONE ORAL SOLN 5 MG/5 ML CUP PEG/G-TUBE SCH ×2 (08:11→13:09)
[2018-08-12] MEDS: LORATADINE 10 MG TAB PEG/G-TUBE SCH (08:11)
[2018-08-12] MEDS: SILACE PEG/G-TUBE SCH (08:12)
[2018-08-12] MEDS: AZITHROMYCIN 500 MG TAB PO SCH (08:13)
[2018-08-12] MEDS: predniSONE 20 MG TAB PO SCH (08:13)
[2018-08-12] MEDS: CHOLECALCIFEROL 1,000 UNIT TAB PEG/G-TUBE SCH (08:13)
[2018-08-12] MEDS: HYDROCHLOROTHIAZIDE 25 MG TAB PEG/G-TUBE SCH (08:13)
[2018-08-12] MEDS: SODIUM CHLORIDE 0.9% 1,000 ML IV SCH (13:09)
== END 2018-08-12 14:48 ==
LOC: EC 14:04 → 4MS4W 16:56
PROVIDERS: ADMIT Hospitalist; ATTEND Hospitalist
DX: J44.1 Chronic obstructive pulmonary disease with (acute) exacerbation (principal); R53.81 Other malaise; I11.0 Hypertensive heart disease with heart failure; F32.9 Major depressive disorder, single episode, unspecified; I50.9 Heart failure, unspecified; E78.5 Hyperlipidemia, unspecified; Z87.01 Personal history of pneumonia (recurrent); G40.909 Epilepsy, unspecified, not intractable, without status epilepticus; Z87.820 Personal history of traumatic brain injury; Z99.81 Dependence on supplemental oxygen; Z86.14 Personal history of Methicillin resistant Staphylococcus aureus infection; Z87.891 Personal history of nicotine dependence; Z93.1 Gastrostomy status
CPT/HCPCS: 96361; 96365; 96375; 99285; 36415; 94640 ×5; 80053; 85025; 87040; 87502; 71046; G0378 ×3; J1100; J0456; J7512 ×2

== ENCOUNTER 2021-09-03 14:12 | Emergency (ER) | payer OTHER ==
[2021-09-03 14:29] VITALS: BP 140/64; PULSE 54; RESP 18
--- NOTE | 2021-09-03 14:53 | ED ---
General Adult HPI - General Chief complaint: Skin/Abscess/Foreign Body Stated complaint: peg tube problems Time Seen by Provider: 09/03/21 14:16 Source: EMS, RN notes reviewed, Caregiver Mode of arrival: EMS Limitations: no limitations - History of Present Illness Initial comments: Patient is a 61-year-old male with severe Tourette's presenting to the emergency department with concern of PEG tube leaking as well as redness around the site. PEG tube has been leaking for a few days. Redness around the site was just noticed today. No reported fevers. Patient is a poor historian but does admit to having some discomfort when examining the area of cellulitis. Patient without other complaints. Caregiver helps provide history. - Related Data Home Medications Medication Instructions Recorded Confirmed Acetaminophen Tab [Tylenol] 500 - 1,000 mg PEG/G-TUBE Q4H PRN 10/04/16 09/03/21 Divalproex Sodium [Depakote] 500 mg PEG/G-TUBE BID@799,199910/04/16 09/03/21 Loratadine 10 mg PEG/G-TUBE HS PRN 10/04/16 09/03/21 Magnesium Hydroxide [Milk of 800 mg PEG/G-TUBE DAILY PRN 10/18/17 09/03/21 Magnesia] Hydrocortisone Cream 1 applic TOPICAL BID@ PRN 01/17/18 09/03/21 [Hydrocortisone 1% Cream] Atorvastatin [Lipitor] 40 mg PEG/G-TUBE HS@199908/10/18 09/03/21 Ipratropium-Albuterol Nebulize 3 ml INHALATION RT-QID 08/10/18 09/03/21 [Duoneb 0.5 mg-3 mg/3 ml Soln] hydroCHLOROthiazide [Hydrodiuril] 25 mg PEG/G-TUBE DAILY@79908/10/18 09/03/21 Cholecalciferol (Vitamin D3) 125 mcg PEG/G-TUBE DAILY@79909/03/21 09/03/21 [Vitamin D3 (125 MCG = 5,000 IU)] Clotrimazole/Betameth Cream 1 applic TOPICAL BID@799,199909/03/21 09/03/21 [Lotrisone] Docusate Oral Soln [Colace Oral 100 mg PEG/G-TUBE BID PRN 09/03/21 09/03/21 Soln] Fenofibrate [Lofibra] 160 mg PEG/G-TUBE DAILY@0800 09/03/21 09/03/21 Fish Oil/Dha/Epa [Fish Oil 1,200 1 cap PEG/G-TUBE BID@08,199909/03/21 09/03/21 mg Fish Oil] Lactose-Reduced Food [Boost] 237 ml PEG/G-TUBE BID@1000,199909/03/21 09/03/21 Mupirocin 2% Oint [Bactroban 2% 1 applic TOPICAL BID@08,199909/03/21 09/03/21 Oint] Nystatin/Triamcin 1 applicate TOPICAL DAILY PRN 09/03/21 09/03/21 [Nystatin-Triamcinolone Cream] carBAMazepine [carBAMazepine Oral 150 mg PEG/G-TUBE BID@08,199909/03/21 09/03/21 Susp] guaiFENesin 400 mg PO Q4H PRN 09/03/21 09/03/21 Previous Rx's Medication Instructions Recorded Zinc Oxide 20% Oint 1 applic TOPICAL TID #20 gm 09/03/21 Allergies Allergy/AdvReac Type Severity Reaction Status Date / Time No Known Allergies Allergy Verified 09/03/21 14:42 Review of Systems ROS Statement: Those systems with pertinent positive or pertinent negative responses have been documented in the HPI. ROS Other: All systems not noted in ROS Statement are negative. Constitutional: Denies: fever Eyes: Denies: eye discharge ENT: Denies: epistaxis Respiratory: Denies: cough, dyspnea Cardiovascular: Denies: chest pain Endocrine: Denies: fatigue Gastrointestinal: Reports: as per HPI. 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 History of Any Multi-Drug Resistant Organisms: MRSA Date of last positivie culture/infection: 09/13/17 MDRO Source:: mrsa mouth Past Surgical History: Unable to Obtain Additional Past Surgical History / Comment(s): GILDARDO RESIDENTAL; PEG inserted 06/27/17, teeth extration 2017 Past Anesthesia/Blood Transfusion Reactions: Unable to Obtain Past Psychological History: Depression Smoking Status: Unknown if ever smoked Past Alcohol Use History: None Reported Past Drug Use History: None Reported - Past Family History Father Family Medical History: Unable to Obtain Mother Family Medical History: Unable to Obtain General Exam Limitations: no limitations General appearance: alert, in no apparent distress Head exam: Present: normocephalic Eye exam: Present: normal appearance Neck exam: Present: normal inspection Respiratory exam: Present: normal lung sounds bilaterally Cardiovascular Exam: Present: regular rate, normal rhythm GI/Abdominal exam: Present: soft, other (Area surrounding PEG tube with approximately 4 x 4 centimeter mildly erythematous with mild tenderness. No significant swelling.). Absent: distended Extremities exam: Present: normal inspection Neurological exam: Present: alert Psychiatric exam: Present: other (Inappropriate words and behavior) Skin exam: Present: erythema (PEG tube site) Course Vital Signs 09/03/21 14:14 Pulse Rate 54 L Respiratory 18 Rate Blood Pressure 140/64 O2 Sat by Pulse 97 Oximetry Medical Decision Making - Medical Decision Making Case was discussed with Dr. Wells who is okay with moving PEG tube. He recommends using zinc oxide Cream rather than oral antibiotics. He feels erythema is likely reactive to stomach contents spilling. He will follow-up with the patient next week. I did try to deflate the balloon however stomach contents came out. This raises the question of either the balloon previously rupturing or the distal portion of the PEG tube being replaced with a different one. I was unable to easily remove the PEG tube and therefore this will be deferred to Dr. Wells in the office. - Lab Data Result diagrams: 09/03/21 15:27 09/03/21 15:27 Lab Results 09/03/21 09/03/21 09/03/21 Range/Units 15:27 15:27 15:44 WBC 7.7 (3.8-10.6) k/uL RBC 4.62 (4.30-5.90) m/uL Hgb 13.2 (13.0-17.5) gm/dL Hct 40.0 (39.0-53.0) % MCV 86.7 (80.0-100.0) fL MCH 28.6 (25.0-35.0) pg MCHC 33.0 (31.0-37.0) g/dL RDW 13.9 (11.5-15.5) % Plt Count 342 (150-450) k/uL MPV 7.7 Neutrophils % 64 % Lymphocytes % 26 % Monocytes % 6 % Eosinophils % 2 % Basophils % 0 % Neutrophils # 4.9 (1.3-7.7) k/uL Lymphocytes # 2.0 (1.0-4.8) k/uL Monocytes # 0.4 (0-1.0) k/uL Eosinophils # 0.2 (0-0.7) k/uL Basophils # 0.0 (0-0.2) k/uL PT 11.6 (9.0-12.0) sec INR 1.1 (<1.2) APTT 22.7 (22.0-30.0) sec Sodium 136 L (137-145) mmol/L Potassium 4.2 (3.5-5.1) mmol/L Chloride 101 (98-107) mmol/L Carbon Dioxide 26 (22-30) mmol/L Anion Gap 9 mmol/L BUN 16 (9-20) mg/dL Creatinine 0.56 L (0.66-1.25) mg/dL Est GFR (CKD-EPI)AfAm >90 (>60 ml/min/1.73 sqM) Est GFR (CKD-EPI)NonAf >90 (>60 ml/min/1.73 sqM) Glucose 129 H (74-99) mg/dL Plasma Lactic Acid Hermes (0.7-2.0) mmol/L Calcium 10.0 (8.4-10.2) mg/dL Total Bilirubin 0.3 (0.2-1.3) mg/dL AST 23 (17-59) U/L ALT 14 (4-49) U/L Alkaline Phosphatase 44 (38-126) U/L Total Protein 6.8 (6.3-8.2) g/dL Albumin 4.1 (3.5-5.0) g/dL 09/03/21 Range/Units 15:44 WBC (3.8-10.6) k/uL RBC (4.30-5.90) m/uL Hgb (13.0-17.5) gm/dL Hct (39.0-53.0) % MCV (80.0-100.0) fL MCH (25.0-35.0) pg MCHC (31.0-37.0) g/dL RDW (11.5-15.5) % Plt Count (150-450) k/uL MPV Neutrophils % % Lymphocytes % % Monocytes % % Eosinophils % % Basophils % % Neutrophils # (1.3-7.7) k/uL Lymphocytes # (1.0-4.8) k/uL Monocytes # (0-1.0) k/uL Eosinophils # (0-0.7) k/uL Basophils # (0-0.2) k/uL PT (9.0-12.0) sec INR (<1.2) APTT (22.0-30.0) sec Sodium (137-145) mmol/L Potassium (3.5-5.1) mmol/L Chloride (98-107) mmol/L Carbon Dioxide (22-30) mmol/L Anion Gap mmol/L BUN (9-20) mg/dL Creatinine (0.66-1.25) mg/dL Est GFR (CKD-EPI)AfAm (>60 ml/min/1.73 sqM) Est GFR (CKD-EPI)NonAf (>60 ml/min/1.73 sqM) Glucose (74-99) mg/dL Plasma Lactic Acid Hermes 2.2 H* (0.7-2.0) mmol/L Calcium (8.4-10.2) mg/dL Total Bilirubin (0.2-1.3) mg/dL AST (17-59) U/L ALT (4-49) U/L Alkaline Phosphatase (38-126) U/L Total Protein (6.3-8.2) g/dL Albumin (3.5-5.0) g/dL Disposition Clinical Impression: PEG tube malfunction Disposition: HOME SELF-CARE Condition: Stable Instructions (If sedation given, give patient instructions): How to Use and Care for Your PEG Tube (ED) Additional Instructions: Please follow-up with Dr. Wells within one week, phone number provided. Have Dr. Wells eval PEG tube for removal. Prescription for Zinc oxide cream has been sent to pharmacy. Uses 3 times daily Prescriptions: Zinc Oxide 20% Oint 1 applic TOPICAL TID #20 gm Is patient prescribed a controlled substance at d/c from ED?: No Referrals: Pablo Michel MD [Primary Care Provider] - 1-2 days Josias Wells MD [STAFF PHYSICIAN] - 1-2 days Time of Disposition: 16:40
[2021-09-03 15:32] LABS: Basophils % (A) 0 %; Eosinophils # (A) 0.2 k/uL (0-0.7); Eosinophils % (A) 2 %; HGB 13.2 gm/dL (13.0-17.5); Lymphocytes % (A) 26 %; MCH 28.6 pg (25.0-35.0); MCV 86.7 fL (80.0-100.0); Mean Platelet Volume 7.7; Monocytes # (A) 0.4 k/uL (0-1.0); Monocytes % (A) 6 %; Neutrophils # (A) 4.9 k/uL (1.3-7.7); Neutrophils % (A) 64 %; Platelet Count 342 k/uL (150-450); RBC 4.62 m/uL (4.30-5.90); RDW 13.9 % (11.5-15.5); WBC 7.7 k/uL (3.8-10.6)
[2021-09-03 15:42] LABS: ALT 14 U/L (4-49); AST 23 U/L (17-59); African American GFR (CKD) >90 (>60 ml/min/1.73 sqM); Albumin 4.1 g/dL (3.5-5.0); Alkaline Phosphatase 44 U/L (38-126); Anion Gap 9 mmol/L; Blood Urea Nitrogen 16 mg/dL (9-20); Carbon Dioxide 26 mmol/L (22-30); Chloride 101 mmol/L (98-107); Glucose 129 mg/dL (74-99); Non-African American GFR(CKD) >90 (>60 ml/min/1.73 sqM); Potassium 4.2 mmol/L (3.5-5.1); Sodium 136 mmol/L (137-145); Total Bilirubin 0.3 mg/dL (0.2-1.3); Total Protein 6.8 g/dL (6.3-8.2)
--- NOTE | 2021-09-03 15:59 | XR ---
EXAMINATION TYPE: XR abdomen 1V DATE OF EXAM: 09/03/2021 3:51 PM CLINICAL HISTORY: Leaking. Pain and cellulitis. TECHNIQUE: Two supine KUB images of the abdomen are obtained. COMPARISON: CT abdomen and pelvis June 08, 2017. FINDINGS: Satisfactory positioning of PEG tube overlying the inferior gastric body. Mildly distended gas-filled stomach. Scattered gas in nondistended small bowel loops. Gas and fecal material in nondis tended colon. Mild to borderline moderate diffuse colonic fecal prominence. Elevated left hemidiaphragm redemonstrated. 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 IMPRESSION: As above.
[2021-09-03 16:06] LABS: INR 1.1 (<1.2); Partial Thromboplastin Time 22.7 sec (22.0-30.0); Prothrombin Time 11.6 sec (9.0-12.0)
[2021-09-03] MEDS ORDERED: ZINC OXIDE 20% OINT 28.4 GM TUBE TOPICAL STA (16:41)
== END 2021-09-03 18:13 | disposition home or self-care (01) ==
LOC: EC 14:12
DX: K94.23 Gastrostomy malfunction (principal); I11.0 Hypertensive heart disease with heart failure; I50.9 Heart failure, unspecified; J44.9 Chronic obstructive pulmonary disease, unspecified; E78.5 Hyperlipidemia, unspecified; F32.9 Major depressive disorder, single episode, unspecified; Z79.899 Other long term (current) drug therapy
CPT/HCPCS: 36415; 74018; 80053; 83605; 85025; 85610; 85730; 87040; 99283

== ENCOUNTER 2021-10-30 15:31 | Observation (INO) | payer OTHER ==
[2021-10-30] MEDS ORDERED: SODIUM CHLORIDE 0.9% 500 ML 500 ML IV STA (16:13)
[2021-10-30] MEDS ORDERED: ACETAMINOPHEN TAB 500 MG TAB PO STA (16:16)
--- NOTE | 2021-10-30 16:29 | ED ---
General Adult HPI - General Chief complaint: Altered Mental Status Stated complaint: altered mental status Time Seen by Provider: 10/30/21 15:54 Source: EMS, RN notes reviewed Mode of arrival: EMS Limitations: altered mental status, physical limitation - History of Present Illness Initial comments: Dictation was produced using [employer] dictation software. please excuse any grammatical, word or spelling errors. 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 Patient is a permanent resident there. He has history of chronic debility secondary to traumatic brain injury suffered from traumatic incident several years ago. He is allegedly at baseline alert and oriented 2. Presents today alert and oriented 1. Patient unable to provide history of present illness. There is paperwork from [facility] stating that he just had his booster vaccine today. Suffered a fall yesterday. He was also noted to have signs of respiratory distress including tachypnea, accessory muscle use. Patient unable to find history present illness at this time. Unable to obtain ROS secondary to mental status PHYSICAL EXAM: General Impression: Alert and oriented x1/4, tachypneic HEENT: Normocephalic atraumatic, extra-ocular movements intact, pupils equal and reactive to light bilaterally, mucous membranes moist. Cardiovascular: Heart regular rate and rhythm Chest: Tachypneic, mild rhonchi to the lung tubbs bilaterally worse on the left compared to the right Abdomen: abdomen soft, non-tender, non-distended, no organomegaly Musculoskeletal: Pulses present and equal in all extremities, no peripheral edema Motor: no focal deficits noted Neurological: CN II-XII grossly intact, no focal motor or sensory deficits noted Skin: Intact with no visualized rashes Psych: Normal affect and mood ED course: 84-year-old male presents to the emergency department for altered mental status, respiratory distress, and fall all signs upon arrival shows heart rate of 125, temperature 100.6, rest of vital signs within acceptable limits. Limited evaluation obtained. Leukocytosis of 15.8, hemoglobin 11.9. Rest of CBC unremarkable. Coag panel is negative. D-dimer is 1.81. Metabolic panel shows like acidosis 3.1. Negative troponin, normal renal trach peptide. Urinalysis positive for 3+ glucose. Coronal virus is negative. Computed tomography scan of brain shows no acute processes. Chest x-ray shows comparable interstitial mild pulmonary infiltrates CT angios the chest was ordered due to elevated d-dimer. There is no evidence of pulmonary embolism. There is interstitial peripheral infiltrates similar to old exam consistent with pulmonary fibrosis. There is chronic elevation of the left hemidiaphragm similar to old exam. No new findings compared to old films. Clinical presentation concerning for his COPD exacerbation. Patient revived bedside at 7:00 PM. He still tachypneic but is comfortable appearing. Patient given steroids and breathing treatment. Patient admitted to Dr. Diaz. Patient meets SIRS criteria. Pending blood cultures. Patient started on azithromycin. EKG interpretation: Ventricular rate 122, sinus tachycardia,. Interval 1:30, QRS 82, QTc 413. No IN prolongation, no QTC prolongation,. Concern for ST depressions seen in inferior leads and septal lateral precordial leads - Related Data Home Medications Medication Instructions Recorded Confirmed Acetaminophen Tab [Tylenol] 500 - 1,000 mg PO Q4H PRN 10/04/16 10/30/21 Divalproex Sodium [Depakote] 500 mg PO BID@08,199910/04/16 10/30/21 Loratadine 10 mg PO HS PRN 10/04/16 10/30/21 Magnesium Hydroxide [Milk of 800 mg PO DAILY PRN 10/18/17 10/30/21 Magnesia] Atorvastatin [Lipitor] 40 mg PO HS@199908/10/18 10/30/21 Ipratropium-Albuterol Nebulize 3 ml INHALATION RT-QID 08/10/18 10/30/21 [Duoneb 0.5 mg-3 mg/3 ml Soln] hydroCHLOROthiazide [Hydrodiuril] 25 mg PO DAILY@0800 08/10/18 10/30/21 Cholecalciferol (Vitamin D3) 125 mcg PO DAILY@0800 09/03/21 10/30/21 [Vitamin D3 (125 MCG = 5,000 IU)] Clotrimazole/Betameth Cream 1 applic TOPICAL BID@799,199909/03/21 10/30/21 [Lotrisone] Docusate Oral Soln [Colace Oral 100 mg PO BID PRN 09/03/21 10/30/21 Soln] Fenofibrate [Lofibra] 160 mg PO DAILY@0800 09/03/21 10/30/21 Fish Oil/Dha/Epa [Fish Oil 1,200 1 cap PO BID@0800,199909/03/21 10/30/21 mg Fish Oil] Lactose-Reduced Food [Boost] 237 ml PO BID@1000,199909/03/21 10/30/21 guaiFENesin 400 mg PO Q4H PRN 09/03/21 10/30/21 LORazepam [Ativan] 0.5 mg PO TID PRN 10/30/21 10/30/21 carBAMazepine CHEW [TEGretol Chew] 150 mg PO BID@0800,199910/30/21 10/30/21 risperiDONE [RisperDAL] 1 mg PO TID@0800,1400,199910/30/21 10/30/21 Allergies Allergy/AdvReac Type Severity Reaction Status Date / Time No Known Allergies Allergy Verified 10/30/21 16:53 Review of Systems ROS Statement: Those systems with pertinent positive or pertinent negative responses have been documented in the HPI. ROS Other: All systems not noted in ROS Statement are negative. 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 History of Any Multi-Drug Resistant Organisms: MRSA Date of last positivie culture/infection: 09/13/17 MDRO Source:: mrsa mouth Past Surgical History: Unable to Obtain Additional Past Surgical History / Comment(s): BARSS RESIDENTND; PEG inserted 06/27/17, teeth extration 2016 Past Anesthesia/Blood Transfusion Reactions: Unable to Obtain Past Psychological History: Depression Smoking Status: Unknown if ever smoked Past Alcohol Use History: None Reported Past Drug Use History: None Reported - Past Family History Father Family Medical History: Unable to Obtain Mother Family Medical History: Unable to Obtain General Exam Limitations: altered mental status, physical limitation Course Vital Signs 01/02/1510/30/21 10/30/21 15:35 16:00 16:30 Temperature 100.6 F H Pulse Rate 125 H 129 H 120 H Respiratory 24 24 24 Rate Blood Pressure 126/83 157/83 125/89 O2 Sat by Pulse 96 96 96 Oximetry 10/30/21 10/30/21 10/30/21 17:00 18:00 19:00 Temperature Pulse Rate 111 H 97 96 Respiratory 24 24 24 Rate Blood Pressure 146/88 137/93 131/73 O2 Sat by Pulse 97 98 97 Oximetry 10/30/21 19:08 Temperature 98.8 F Pulse Rate 94 Respiratory 18 Rate Blood Pressure 133/82 O2 Sat by Pulse 98 Oximetry Medical Decision Making - Lab Data Result diagrams: 10/30/21 16:32 10/30/21 16:32 Lab Results 10/30/21 10/30/21 10/30/21 Range/Units 15:57 16:32 16:32 WBC 15.8 H (3.8-10.6) k/uL RBC 4.12 L (4.30-5.90) m/uL Hgb 11.9 L (13.0-17.5) gm/dL Hct 37.2 L (39.0-53.0) % MCV 90.3 (80.0-100.0) fL MCH 29.0 (25.0-35.0) pg MCHC 32.1 (31.0-37.0) g/dL RDW 13.5 (11.5-15.5) % Plt Count 342 (150-450) k/uL MPV 8.6 Neutrophils % 83 % Lymphocytes % 7 % Monocytes % 9 % Eosinophils % 0 % Basophils % 0 % Neutrophils # 13.1 H (1.3-7.7) k/uL Lymphocytes # 1.1 (1.0-4.8) k/uL Monocytes # 1.4 H (0-1.0) k/uL Eosinophils # 0.0 (0-0.7) k/uL Basophils # 0.0 (0-0.2) k/uL PT 11.3 (9.0-12.0) sec INR 1.1 (<1.2) APTT 24.8 (22.0-30.0) sec D-Dimer 1.81 H (<0.60) mg/L FEU Sodium (137-145) mmol/L Potassium (3.5-5.1) mmol/L Chloride (98-107) mmol/L Carbon Dioxide (22-30) mmol/L Anion Gap mmol/L BUN (9-20) mg/dL Creatinine (0.66-1.25) mg/dL Est GFR (CKD-EPI)AfAm (>60 ml/min/1.73 sqM) Est GFR (CKD-EPI)NonAf (>60 ml/min/1.73 sqM) Glucose (74-99) mg/dL Lactic Ac Sepsis Rflx Plasma Lactic Acid [place] (0.7-2.0) mmol/L Calcium (8.4-10.2) mg/dL Magnesium (1.6-2.3) mg/dL Total Bilirubin (0.2-1.3) mg/dL AST (17-59) U/L ALT (4-49) U/L Alkaline Phosphatase (38-126) U/L Troponin I (0.000-0.034) ng/mL NT-Pro-B Natriuret Pep pg/mL Total Protein (6.3-8.2) g/dL Albumin (3.5-5.0) g/dL Urine Color Urine Appearance (Clear) Urine pH (5.0-8.0) Ur Specific Allen (1.001-1.035) Urine Protein (Negative) Urine Glucose (UA) (Negative) Urine Ketones (Negative) Urine Blood (Negative) Urine Nitrite (Negative) Urine Bilirubin (Negative) Urine Urobilinogen (<2.0) mg/dL Ur Leukocyte Esterase (Negative) Coronavirus (PCR) Not Detected (Not Detectd) 10/30/21 10/30/21 10/30/21 Range/Units 16:32 16:32 16:32 WBC (3.8-10.6) k/uL RBC (4.30-5.90) m/uL Hgb (13.0-17.5) gm/dL Hct (39.0-53.0) % MCV (80.0-100.0) fL MCH (25.0-35.0) pg MCHC (31.0-37.0) g/dL RDW (11.5-15.5) % Plt Count (150-450) k/uL MPV Neutrophils % % Lymphocytes % % Monocytes % % Eosinophils % % Basophils % % Neutrophils # (1.3-7.7) k/uL Lymphocytes # (1.0-4.8) k/uL Monocytes # (0-1.0) k/uL Eosinophils # (0-0.7) k/uL Basophils # (0-0.2) k/uL PT (9.0-12.0) sec INR (<1.2) APTT (22.0-30.0) sec D-Dimer (<0.60) mg/L FEU Sodium 135 L (137-145) mmol/L Potassium 3.9 (3.5-5.1) mmol/L Chloride 95 L (98-107) mmol/L Carbon Dioxide 28 (22-30) mmol/L Anion Gap 12 mmol/L BUN 12 (9-20) mg/dL Creatinine 0.75 (0.66-1.25) mg/dL Est GFR (CKD-EPI)AfAm >90 (>60 ml/min/1.73 sqM) Est GFR (CKD-EPI)NonAf >90 (>60 ml/min/1.73 sqM) Glucose 194 H (74-99) mg/dL Lactic Ac Sepsis Rflx Plasma Lactic Acid Hermes 3.1 H* (0.7-2.0) mmol/L Calcium 9.8 (8.4-10.2) mg/dL Magnesium 1.7 (1.6-2.3) mg/dL Total Bilirubin 0.5 (0.2-1.3) mg/dL AST 22 (17-59) U/L ALT 17 (4-49) U/L Alkaline Phosphatase 46 (38-126) U/L Troponin I <0.012 (0.000-0.034) ng/mL NT-Pro-B Natriuret Pep pg/mL Total Protein 6.8 (6.3-8.2) g/dL Albumin 4.0 (3.5-5.0) g/dL Urine Color Urine Appearance (Clear) Urine pH (5.0-8.0) Ur Specific Allen (1.001-1.035) Urine Protein (Negative) Urine Glucose (UA) (Negative) Urine Ketones (Negative) Urine Blood (Negative) Urine Nitrite (Negative) Urine Bilirubin (Negative) Urine Urobilinogen (<2.0) mg/dL Ur Leukocyte Esterase (Negative) Coronavirus (PCR) (Not Detectd) 10/30/21 10/30/21 10/30/21 Range/Units 16:32 17:23 17:38 WBC (3.8-10.6) k/uL RBC (4.30-5.90) m/uL Hgb (13.0-17.5) gm/dL Hct (39.0-53.0) % MCV (80.0-100.0) fL MCH (25.0-35.0) pg MCHC (31.0-37.0) g/dL RDW (11.5-15.5) % Plt Count (150-450) k/uL MPV Neutrophils % % Lymphocytes % % Monocytes % % Eosinophils % % Basophils % % Neutrophils # (1.3-7.7) k/uL Lymphocytes # (1.0-4.8) k/uL Monocytes # (0-1.0) k/uL Eosinophils # (0-0.7) k/uL Basophils # (0-0.2) k/uL PT (9.0-12.0) sec INR (<1.2) APTT (22.0-30.0) sec D-Dimer (<0.60) mg/L FEU Sodium (137-145) mmol/L Potassium (3.5-5.1) mmol/L Chloride (98-107) mmol/L Carbon Dioxide (22-30) mmol/L Anion Gap mmol/L BUN (9-20) mg/dL Creatinine (0.66-1.25) mg/dL Est GFR (CKD-EPI)AfAm (>60 ml/min/1.73 sqM) Est GFR (CKD-EPI)NonAf (>60 ml/min/1.73 sqM) Glucose (74-99) mg/dL Lactic Ac Sepsis Rflx Y Plasma Lactic Acid Hermes (0.7-2.0) mmol/L Calcium (8.4-10.2) mg/dL Magnesium (1.6-2.3) mg/dL Total Bilirubin (0.2-1.3) mg/dL AST (17-59) U/L ALT (4-49) U/L Alkaline Phosphatase (38-126) U/L Troponin I (0.000-0.034) ng/mL NT-Pro-B Natriuret Pep 242 pg/mL Total Protein (6.3-8.2) g/dL Albumin (3.5-5.0) g/dL Urine Color Yellow Urine Appearance Clear (Clear) Urine pH 7.0 (5.0-8.0) Ur Specific Allen 1.021 (1.001-1.035) Urine Protein Trace H (Negative) Urine Glucose (UA) 3+ H (Negative) Urine Ketones Negative (Negative) Urine Blood Negative (Negative) Urine Nitrite Negative (Negative) Urine Bilirubin Negative (Negative) Urine Urobilinogen 4.0 (<2.0) mg/dL Ur Leukocyte Esterase Negative (Negative) Coronavirus (PCR) (Not Detectd) Disposition Clinical Impression: COPD exacerbation Disposition: ADMITTED IP TO THIS HOSP Condition: Fair Referrals: Pablo Michel MD [Primary Care Provider] - 1-2 days
[2021-10-30 16:55] LABS: Basophils % (A) 0 %; Eosinophils % (A) 0 %; HCT 37.2 % (39.0-53.0); HGB 11.9 gm/dL (13.0-17.5); Lymphocytes # (A) 1.1 k/uL (1.0-4.8); Lymphocytes % (A) 7 %; MCHC 32.1 g/dL (31.0-37.0); MCV 90.3 fL (80.0-100.0); Mean Platelet Volume 8.6; Monocytes # (A) 1.4 k/uL (0-1.0); Monocytes % (A) 9 %; Neutrophils # (A) 13.1 k/uL (1.3-7.7); Neutrophils % (A) 83 %; Platelet Count 342 k/uL (150-450); RBC 4.12 m/uL (4.30-5.90); RDW 13.5 % (11.5-15.5); WBC 15.8 k/uL (3.8-10.6)
[2021-10-30 17:05] LABS: ALT 17 U/L (4-49); AST 22 U/L (17-59); African American GFR (CKD) >90 (>60 ml/min/1.73 sqM); Alkaline Phosphatase 46 U/L (38-126); Anion Gap 12 mmol/L; Blood Urea Nitrogen 12 mg/dL (9-20); Calcium 9.8 mg/dL (8.4-10.2); Carbon Dioxide 28 mmol/L (22-30); Chloride 95 mmol/L (98-107); Glucose 194 mg/dL (74-99); Magnesium 1.7 mg/dL (1.6-2.3); Non-African American GFR(CKD) >90 (>60 ml/min/1.73 sqM); Potassium 3.9 mmol/L (3.5-5.1); Sodium 135 mmol/L (137-145); Total Bilirubin 0.5 mg/dL (0.2-1.3); Total Protein 6.8 g/dL (6.3-8.2)
[2021-10-30 17:11] LABS: INR 1.1 (<1.2); Partial Thromboplastin Time 24.8 sec (22.0-30.0); Prothrombin Time 11.3 sec (9.0-12.0)
--- NOTE | 2021-10-30 17:24 | XR ---
EXAMINATION TYPE: XR chest 1V portable DATE OF EXAM: 10/30/2021 COMPARISON: 08/10/2018 HISTORY: Short of breath TECHNIQUE: FINDINGS: There is interstitial infiltrate in the mid and lower lung tubbs. There is poor inspiratio n and elevation of the diaphragms. IMPRESSION: Interstitial mild pulmonary infiltrates similar to old exam. This is consistent with some pulmonary fibrosis. Poor inspiration and chronic elevation of the diaphragms without change. No hear t failure.
--- NOTE | 2021-10-30 17:26 | CT ---
EXAMINATION TYPE: CT brain wo con DATE OF EXAM: 10/30/2021 COMPARISON: None HISTORY: altered mental status CT DLP: 1099.4 mGycm Automated exposure control for dose reduction was used. There is moderate diffuse cerebral atrophy. There is no mass effect or midline shift. There is no sig n of intracranial hemorrhage. Calvarium is intact. There is some hyperostosis of the calvarium. IMPRESSION: Cerebral atrophy. No acute intracranial abnormality.
[2021-10-30 18:13] LABS: Appearance,Urine Clear (Clear); Bilirubin,Urine Negative (Negative); Blood,Urine Negative (Negative); Color,Urine Yellow; Glucose,Urine (UA) 3+ (Negative); Ketones,Urine Negative (Negative); Leukocyte Esterase,Urine Negative (Negative); Nitrite,Urine Negative (Negative); Protein,Urine Trace (Negative); Specific Gravity,Urine 1.021 (1.001-1.035)
--- NOTE | 2021-10-30 18:26 | CT ---
EXAMINATION TYPE: CT angio chest DATE OF EXAM: 10/30/2021 COMPARISON: 10/20/2017 HISTORY: Elevated d-dimer and shortness of breath. CT DLP: 467.4 mGycm Automated exposure control for dose reduction was used. CONTRAST: Performed with IV Contrast, patient injected with 100ml mL of Isovue 370. Images obtained from the thoracic inlet to the diaphragm without IV contrast. There are Three-D postp rocessed images. There is patchy interstitial infiltrates in both lungs. There is some atelectasis left lung base with elevated left diaphragm. Heart size is normal. There is no pericardial effusion. There is no pleural effusion. There is normal contrast opacification of the pulmonary arteries. There are no filling def ects. There is no mediastinal adenopathy. Thoracic aorta is intact. There is no aneurysm or dissection. The re are no hilar masses. The bony thorax is intact. Sternum is intact. IMPRESSION: No evidence of pulmonary embolism. Coarse interstitial peripheral infiltrates similar to old exam and consistent with pulmonary fibrosis . No suspicious pulmonary mass. Chronic elevation of the left diaphragm similar to old exam and could relate to diaphragm paralysis. Normal heart. No evidence of any significant new pulmonary density compared to old exam.
[2021-10-30] MEDS ORDERED: DEXAMETHASONE SOD PHOSPHATE 10 MG/ML 1 ML VIAL IV STA (18:37)
[2021-10-30] MEDS ORDERED: IPRATROPIUM-ALBUTEROL 3 ML NEB INHALATION STA (18:37)
[2021-10-30] MEDS ORDERED: AZITHROMYCIN 500 MG in SODIUM CHLORIDE 0.9% 250 ML IVPB STA (18:43)
[2021-10-30] MEDS: IPRATROPIUM-ALBUTEROL 3 ML NEB INHALATION SCH (19:51)
[2021-10-31] MEDS ORDERED: predniSONE 20 MG TAB PO SCH (09:00)
[2021-10-31] MEDS: IPRATROPIUM-ALBUTEROL 3 ML NEB INHALATION SCH ×5 (09:10→20:21)
[2021-10-31] MEDS ORDERED: DOCUSATE ORAL SOLN 100 MG/10 ML CUP PO PRN (10:59)
[2021-10-31] MEDS ORDERED: MAGNESIUM HYDROXIDE 2,400 MG/10 ML CUP PO PRN (10:59)
[2021-10-31] MEDS ORDERED: LORATADINE 10 MG TAB PO PRN (10:59)
[2021-10-31] MEDS ORDERED: LORazepam 0.5 MG TAB PO PRN (10:59)
[2021-10-31] MEDS ORDERED: guaiFENesin 600 MG TABLET.ER PO PRN (10:59)
[2021-10-31] MEDS ORDERED: IPRATROPIUM-ALBUTEROL 3 ML NEB INHALATION SCH (12:00)
[2021-10-31] MEDS: DIVALPROEX 500 MG TABLET.DR PO SCH ×2 (13:18→20:18)
[2021-10-31] MEDS: risperiDONE 1 MG TAB PO SCH ×2 (13:21→20:18)
--- NOTE | 2021-10-31 13:40 | P.CNPUL ---
History of Present Illness Consult date: 10/31/21 Requesting physician: Roberto Diaz Reason for consult: dyspnea, abnormal CXR/CT Chief complaint: Altered mental status, shortness of breath, tachycardia History of present illness: This is a 61-year-old male patient with a known history of traumatic brain injury and medical debility with contractures and resides in a local group home. He has a history of hypertension, hyperlipidemia, seizure disorder, left hemiparesis, chronic oxygen at 2 L per nasal cannula. He was brought into the emergency room yesterday after being found to have some altered mental status, shortness of breath and tachycardia. Chest x-ray reveals interstitial mild pulmonary infiltrates which are similar to compared to previous exam in 2018 and evidence of pulmonary fibrosis. Poor inspiratory effort. CT angiogram ruled out pulmonary embolism. There is coarse interstitial peripheral infiltrates consistent with pulmonary fibrosis. No suspicious pulmonary mass. Chronic elevation of left hemidiaphragm. No acute pulmonary process. CAT scan of the brain revealed cerebral atrophy. No acute intracranial abnormality. White count 15.8. Hemoglobin 11.2. D-dimer 1.81. Sodium 135. Potassium 3.9. Creat inine 0.75. Glucose 194. Lactic acid 1.5. AST 22. ALT 17. Naidu virus by PCR not detected. Urinalysis with 3+ glucose. He is currently on ceftriaxone, bronchodilators, Mucinex, prednisone. His been afebrile. Blood pressure stable. Some tachycardia. O2 saturation 100% on 2 L nasal cannula. The patient is a poor historian. He has inappropriate outbursts at times. No acute respiratory distress. 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 History of Any Multi-Drug Resistant Organisms: MRSA Date of last positivie culture/infection: 09/13/17 MDRO Source:: mrsa mouth Past Surgical History: Unable to Obtain Additional Past Surgical History / Comment(s): BARSS RESIDENTAL; PEG inserted 06/27/17, teeth extration 2016 Past Anesthesia/Blood Transfusion Reactions: Unable to Obtain Past Psychological History: Depression Smoking Status: Unknown if ever smoked Past Alcohol Use History: None Reported Additional Past Alcohol Use History / Comment(s): PER PAST MEDICAL HX- PAST HX OF SMOKING AND ETOH Past Drug Use History: None Reported - Past Family History Father Family Medical History: Unable to Obtain Mother Family Medical History: Unable to Obtain Medications and Allergies Home Medications Medication Instructions Recorded Confirmed Type Acetaminophen Tab [Tylenol] 500 - 1,000 mg PO Q4H PRN 10/04/16 10/30/21 History Divalproex Sodium [Depakote] 500 mg PO BID@0800,199910/04/16 10/30/21 History Loratadine 10 mg PO HS PRN 10/04/16 10/30/21 History Magnesium Hydroxide [Milk of 800 mg PO DAILY PRN 10/18/17 10/30/21 History Magnesia] Atorvastatin [Lipitor] 40 mg PO HS@199908/10/18 10/30/21 History Ipratropium-Albuterol Nebulize 3 ml INHALATION RT-QID 08/10/18 10/30/21 History [Duoneb 0.5 mg-3 mg/3 ml Soln] hydroCHLOROthiazide [Hydrodiuril] 25 mg PO DAILY@0808/10/18 10/30/21 History Cholecalciferol (Vitamin D3) 125 mcg PO DAILY@0800 09/03/21 10/30/21 History [Vitamin D3 (125 MCG = 5,000 IU)] Clotrimazole/Betameth Cream 1 applic TOPICAL BID@09/03/21 10/30/21 History [Lotrisone] Docusate Oral Soln [Colace Oral 100 mg PO BID PRN 09/03/21 10/30/21 History Soln] Fenofibrate [Lofibra] 160 mg PO DAILY@79909/03/21 10/30/21 History Fish Oil/Dha/Epa [Fish Oil 1,200 1 cap PO BID@0800,199909/03/21 10/30/21 History mg Fish Oil] Lactose-Reduced Food [Boost] 237 ml PO BID@999,199909/03/21 10/30/21 History guaiFENesin 400 mg PO Q4H PRN 09/03/21 10/30/21 History LORazepam [Ativan] 0.5 mg PO TID PRN 10/30/21 10/30/21 History carBAMazepine CHEW [TEGretol Chew] 150 mg PO BID@0800,199910/30/21 10/30/21 History risperiDONE [RisperDAL] 1 mg PO TID@0800,1400,199910/30/21 10/30/21 History Allergies Allergy/AdvReac Type Severity Reaction Status Date / Time No Known Allergies Allergy Verified 10/30/21 16:53 Physical Exam Vitals: Vital Signs Temp Pulse Pulse Resp BP BP Pulse Ox 10/31/21 12:09 120 H 10/31/21 12:00 124 H 10/31/21 08:00 18 10/31/21 07:00 98.5 F 94 18 128/77 100 10/31/21 01:28 98.9 F 75 16 137/79 100 10/30/21 22:39 98.8 F 93 16 162/84 99 10/30/21 20:05 93 10/30/21 19:53 100 10/30/21 19:08 98.8 F 94 18 133/82 98 10/30/21 19:00 96 24 131/73 97 10/30/21 18:00 97 24 137/93 98 10/30/21 17:00 111 H 24 146/88 97 10/30/21 16:30 120 H 24 125/89 96 10/30/21 16:00 129 H 24 157/83 96 10/30/21 15:44 26 H 10/30/21 15:35 100.6 F H 125 H 24 126/83 96 Intake and Output 10/30/21 10/31/21 10/31/21 22:59 06:59 14:59 Other: Voiding Method Diaper # Voids 2 Weight 95.254 kg GENERAL EXAM: Alert, altered from previous head injury, 61-year-old male patient, on 2 L nasal cannula, comfortable in no apparent distress. HEAD: Normocephalic. EYES: Normal reaction of pupils, equal size. NOSE: Clear with pink turbinates. THROAT: No erythema or exudates. NECK: No masses, no JVD. CHEST: No chest wall deformity. LUNGS: Equal air entry with crackles in the posterior bases. CVS: S1 and S2 normal with no audible murmur, regular rhythm. ABDOMEN: No hepatosplenomegaly, normal bowel sounds, no guarding or rigidity. SPINE: No scoliosis or deformity SKIN: No rashes CENTRAL NERVOUS SYSTEM: Unable to assess, previous closed head injury, tone is normal in all 4 extremities. EXTREMITIES: Contractures. There is no peripheral edema. No clubbing, no cyanosis. Peripheral pulses are intact. Results - Laboratory Findings CBC and BMP: 10/30/21 16:32 10/30/21 16:32 PT/INR, D-dimer PT 11.3 sec (9.0-12.0) 10/30/21 16:32 INR 1.1 (<1.2) 10/30/21 16:32 D-Dimer 1.81 mg/L FEU (<0.60) H 10/30/21 16:32 Abnormal lab findings: Abnormal Labs 10/30/21 10/30/21 10/30/21 16:32 16:32 16:32 WBC 15.8 H RBC 4.12 L Hgb 11.9 L Hct 37.2 L Neutrophils # 13.1 H Monocytes # 1.4 H D-Dimer 1.81 H Sodium 135 L Chloride 95 L Glucose 194 H Plasma Lactic Acid Hermes Urine Protein Urine Glucose (UA) 10/30/21 10/30/21 16:32 17:38 WBC RBC Hgb Hct Neutrophils # Monocytes # D-Dimer Sodium Chloride Glucose Plasma Lactic Acid Hermes 3.1 H* Urine Protein Trace H Urine Glucose (UA) 3+ H - Diagnostic Findings Chest x-ray: image reviewed CT scan - chest: image reviewed Assessment and Plan Assessment: 1 Altered mental status with tachycardia and shortness of breath according to staff from the extended care facility. The patient is a old traumatic brain injury and a poor historian. He is currently resting in bed on 2 L nasal cannula. Comfortable. Chest x-ray and CAT scan revealed no acute pulmonary process. Some chronic evidence of mild pulmonary fibrosis. Computed tomography scan of the brain revealed no acute intracranial abnormalities. 2 Traumatic brain injury 3 History of stroke 4 Left sided hemiparesis 5 History of seizure disorder 7 History of congestive heart failure 8 History of COPD 9 snf resident Plan: The patient was seen and evaluated Chest x-ray, CAT scans and labs reviewed Some mild chronic pulmonary fibrosis, no acute process Unable to obtain any information from the patient He is comfortable and on 2 L nasal cannula Titrate the FiO2 as tolerated Continue bronchodilators, empiric antibiotics We will continue to follow and make further recommendations based on his clinical status I, the cosigning physician, performed a history & physical examination of the patient. Lungs sounds coarse crackles in the posterior bases. Maintaining good O2 saturations in the 90s on 2 L/m per nasal cannula. I discussed the assessment and plan of care with my nurse practitioner, Perla Demarco. I attest to the above consult dictation as dictated by her.
--- NOTE | 2021-10-31 16:34 | P.HPIM ---
History of Present Illness H&P Date: 10/31/21 Chief Complaint: Short of breath This is a pleasant 61-year-old patient who follows with visiting physicians Dr. Michel. Chronic stable medical conditions include hypertension, hyperlipidemia, cognitive impairment. Following traumatic brain injury, left hemiparesis, incontinent of stool and urine, needs 2 person assist to transfer, home oxygen 2 L. Can also some questions slowly. EMS was called out. According to staff the patient on levo". At her baseline patient can answer some simple questions with inappropriate verbal outbursts. Patient not been acting himself. This was 30 minutes prior to arrival of the EMS. Patient is found to have a fever and difficulty breathing. Cover test was negative. Patient was noted to be tachycardic in the temperature 100.6 on arrival. In the ER he was tachypneic with some use of accessory muscles. Review of systems: GEN.: Low-grade fever, tired EYES: None HEENT: None NECK: None RESPIRATORY: Short of breath some wheezing CARDIOVASCULAR: None GASTROINTESTINAL: Incontinent GENITOURINARY: Incontinent MUSCULOSKELETAL: None LYMPHATICS: None HEMATOLOGICAL: None PSYCHIATRY: None NEUROLOGICAL: Slow to speak Past medical history to include: CHF, COPD, hyperlipidemia, hypertension, memory impairment, seizure disorder, traumatic brain injury, left sided weakness, incontinent of stool and urine, patient is a 2 person assist for transfer, home oxygen 2 L Social history: Prior history of smoking and alcohol. None currently. Family history: Patient cannot tell Physical examination: VITAL SIGNS: 100.6, 125, 26, 126/83, 96% on 2 L GENERAL: [BMI 28.5, reclining in bed, some shortness of breath. EYES: Pupils equal. Conjunctiva normal. HEENT: External appearance of nose and ears normal, oral cavity grossly normal. NECK: JVD not raised; masses not palpable. HEART: First and second heart sounds are normal; no edema. LUNGS: Respiratory rate increased; some wheezing and sounds slight crackles. ABDOMEN: Soft, nontender, liver spleen not palpable, no masses palpable. PSYCH: Patient will answer some simple occasional questionsl. NEUROLOGICAL: [Cranial nerves grossly intact; no facial asymmetry, contracture of the left hand some left-sided weakness LYMPHATICS: No lymph nodes palpable in the axilla and neck INVESTIGATIONS, reviewed in the clinical context: White count 15.8 hemoglobin 11.9 platelets 342 left shift sodium 135 potassium 3.9 creatinine 0.75 Lactic acid 3.1 troponin I less than 0.012 BNP 242 Coronavirus [PCR]: Not detected EKG tracing personally reviewed by me-sinus tachycardia. ST segment depression in several leads. Chest x-ray film personally reviewed by me-scattered infiltrates. Cannot rule out fibrosis CT angiogram chest: No evidence of PE. Coarse interstitial peripheral infiltrates. Some consistency with pulmonary fibrosis. Chronic elevation of left diaphragm patient is also not new. Assessment and plan: -Pneumonia, suspect gram-negative organism IV ceftriaxone -Sepsis from pneumonia IV fluids, antibiotics -Major cognitive impairment from prior traumatic brain injury -Chronic left-sided weakness with left hand contracture -Seizure disorder from prior history of brain injury Tegretol 1 mg twice a day Depakote 500 mg twice a day -Double bowel and urinary incontinence Uses diapers -Acute COPD exacerbation and a previous smoker DuoNeb, IV Solu-Medrol IV ceftriaxone, DuoNeb, IV Solu-Medrol. Resume home medications. Fall precautions. Check for influenza AB. 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 History of Any Multi-Drug Resistant Organisms: MRSA Date of last positivie culture/infection: 09/13/17 MDRO Source:: mrsa mouth Past Surgical History: Unable to Obtain Additional Past Surgical History / Comment(s): [facility]; PEG inserted 06/27/17, teeth extration 2016 Past Anesthesia/Blood Transfusion Reactions: Unable to Obtain Past Psychological History: Depression Smoking Status: Unknown if ever smoked Past Alcohol Use History: None Reported Additional Past Alcohol Use History / Comment(s): PER PAST MEDICAL HX- PAST HX OF SMOKING AND ETOH Past Drug Use History: None Reported - Past Family History Father Family Medical History: Unable to Obtain Mother Family Medical History: Unable to Obtain Medications and Allergies Home Medications Medication Instructions Recorded Confirmed Type Acetaminophen Tab [Tylenol] 500 - 1,000 mg PO Q4H PRN 10/04/16 10/30/21 History Divalproex Sodium [Depakote] 500 mg PO BID@0800,199910/04/16 10/30/21 History Loratadine 10 mg PO HS PRN 10/04/16 10/30/21 History Magnesium Hydroxide [Milk of 800 mg PO DAILY PRN 10/18/17 10/30/21 History Magnesia] Atorvastatin [Lipitor] 40 mg PO HS@199908/10/18 10/30/21 History Ipratropium-Albuterol Nebulize 3 ml INHALATION RT-QID 08/10/18 10/30/21 History [Duoneb 0.5 mg-3 mg/3 ml Soln] hydroCHLOROthiazide [Hydrodiuril] 25 mg PO DAILY@0808/10/18 10/30/21 History Cholecalciferol (Vitamin D3) 125 mcg PO DAILY@0800 09/03/21 10/30/21 History [Vitamin D3 (125 MCG = 5,000 IU)] Clotrimazole/Betameth Cream 1 applic TOPICAL BID@799,199909/03/21 10/30/21 History [Lotrisone] Docusate Oral Soln [Colace Oral 100 mg PO BID PRN 09/03/21 10/30/21 History Soln] Fenofibrate [Lofibra] 160 mg PO DAILY@0809/03/21 10/30/21 History Fish Oil/Dha/Epa [Fish Oil 1,200 1 cap PO BID@08,199909/03/21 10/30/21 History mg Fish Oil] Lactose-Reduced Food [Boost] 237 ml PO BID@1000,199909/03/21 10/30/21 History guaiFENesin 400 mg PO Q4H PRN 09/03/21 10/30/21 History LORazepam [Ativan] 0.5 mg PO TID PRN 10/30/21 10/30/21 History carBAMazepine CHEW [TEGretol Chew] 150 mg PO BID@0800,199910/30/21 10/30/21 History risperiDONE [RisperDAL] 1 mg PO TID@0800,1400,199910/30/21 10/30/21 History Allergies Allergy/AdvReac Type Severity Reaction Status Date / Time No Known Allergies Allergy Verified 10/30/21 16:53 Physical Exam Vitals: Vital Signs Temp Pulse Pulse Resp BP BP Pulse Ox 01/05/22 15:00 98.0 F 129 H 18 137/72 97 10/31/21 12:09 120 H 10/31/21 12:00 124 H 10/31/21 08:37 10/31/21 08:00 18 10/31/21 07:00 98.5 F 94 18 128/77 100 10/31/21 01:28 98.9 F 75 16 137/79 100 10/30/21 22:39 98.8 F 93 16 162/84 99 10/30/21 20:05 93 10/30/21 19:53 100 10/30/21 19:08 98.8 F 94 18 133/82 98 10/30/21 19:00 96 24 131/73 97 10/30/21 18:00 97 24 137/93 98 10/30/21 17:00 111 H 24 146/88 97 10/30/21 16:30 120 H 24 125/89 96 Pulse Ox 10/31/21 15:00 10/31/21 12:09 10/31/21 12:00 10/31/21 08:37 96 10/31/21 08:00 10/31/21 07:00 10/31/21 01:28 10/30/21 22:39 10/30/21 20:05 10/30/21 19:53 10/30/21 19:08 10/30/21 19:00 10/30/21 18:00 10/30/21 17:00 10/30/21 16:30 Intake and Output 10/31/21 10/31/21 10/31/21 06:59 14:59 22:59 Other: Voiding Method Diaper # Voids 2 3 Results CBC & Chem 7: 10/30/21 16:32 10/30/21 16:32 Labs: Abnormal Lab Results - Last 24 Hours (Table) 10/30/21 10/30/21 10/30/21 Range/Units 16:32 16:32 16:32 WBC 15.8 H (3.8-10.6) k/uL RBC 4.12 L (4.30-5.90) m/uL Hgb 11.9 L (13.0-17.5) gm/dL Hct 37.2 L (39.0-53.0) % Neutrophils # 13.1 H (1.3-7.7) k/uL Monocytes # 1.4 H (0-1.0) k/uL D-Dimer 1.81 H (<0.60) mg/L FEU Sodium 135 L (137-145) mmol/L Chloride 95 L (98-107) mmol/L Glucose 194 H (74-99) mg/dL Plasma Lactic Acid Hermes (0.7-2.0) mmol/L Urine Protein (Negative) Urine Glucose (UA) (Negative) 10/30/21 10/30/21 Range/Units 16:32 17:38 WBC (3.8-10.6) k/uL RBC (4.30-5.90) m/uL Hgb (13.0-17.5) gm/dL Hct (39.0-53.0) % Neutrophils # (1.3-7.7) k/uL Monocytes # (0-1.0) k/uL D-Dimer (<0.60) mg/L FEU Sodium (137-145) mmol/L Chloride (98-107) mmol/L Glucose (74-99) mg/dL Plasma Lactic Acid Hermes 3.1 H* (0.7-2.0) mmol/L Urine Protein Trace H (Negative) Urine Glucose (UA) 3+ H (Negative)
[2021-10-31] MEDS: ENOXAPARIN 40 MG/0.4 ML SYRINGE SQ SCH (18:06)
[2021-10-31] MEDS: methylPREDNISolone SOD SUCCI 40 MG/ML 1 ML VIAL IV SCH (18:06)
[2021-10-31] MEDS ORDERED: NON FORMULARY DRUG (Lactose-Reduced Food [Boost] 237 ML Ml) PO SCH (20:00)
[2021-10-31] MEDS: ATORVASTATIN 40 MG TAB PO SCH (20:18)
[2021-10-31] MEDS: CLOTRIMAZOLE/BETAMETH 1-0.05% CREAM 45 GM TUBE TOPICAL SCH (20:18)
[2021-11-01] MEDS: methylPREDNISolone SOD SUCCI 40 MG/ML 1 ML VIAL IV SCH ×3 (00:05→16:00)
[2021-11-01] MEDS: IPRATROPIUM-ALBUTEROL 3 ML NEB INHALATION SCH ×4 (07:22→18:58)
[2021-11-01] MEDS: FENOFIBRATE 160 MG TAB PO SCH (09:30)
[2021-11-01] MEDS: DIVALPROEX 500 MG TABLET.DR PO SCH ×2 (09:30→20:19)
[2021-11-01] MEDS: CHOLECALCIFEROL 125 MCG (5000 IU) TABLET PO SCH (09:31)
[2021-11-01] MEDS: risperiDONE 1 MG TAB PO SCH ×3 (09:32→20:17)
[2021-11-01] MEDS: ENOXAPARIN 40 MG/0.4 ML SYRINGE SQ SCH (09:34)
[2021-11-01] MEDS: CLOTRIMAZOLE/BETAMETH 1-0.05% CREAM 45 GM TUBE TOPICAL SCH ×2 (09:44→20:20)
--- NOTE | 2021-11-01 12:34 | P.PN ---
Subjective Progress Note Date: 11/01/21 This is a 61-year-old male patient with a known history of traumatic brain injury and medical debility with contractures and resides in a local custodial. He has a history of hypertension, hyperlipidemia, seizure disorder, left hemiparesis, chronic oxygen at 2 L per nasal cannula. He was brought into the emergency room yesterday after being found to have some altered mental status, shortness of breath and tachycardia. Chest x-ray reveals interstitial mild pulmonary infiltrates which are similar to compared to previous exam in 2018 and evidence of pulmonary fibrosis. Poor inspiratory effort. CT angiogram ruled out pulmonary embolism. There is coarse interstitial peripheral infiltrates consistent with pulmonary fibrosis. No suspicious pulmonary mass. Chronic elevation of left hemidiaphragm. No acute pulmonary process. CAT scan of the brain revealed cerebral atrophy. No acute intracranial abnormality. White count 15.8. Hemoglobin 11.2. D-dimer 1.81. Sodium 135. Potassium 3.9. Creatinine 0.75. Glucose 194. Lactic acid 1.5. AST 22. ALT 17. Naidu virus by PCR not detected. Urinalysis with 3+ glucose. He is currently on ceftriaxone, bronchodilators, Mucinex, prednisone. His been afebrile. Blood pressure stable. Some tachycardia. O2 saturation 100% on 2 L nasal cannula. The patient is a poor historian. He has inappropriate outbursts at times. No acute respiratory distress. The patient is seen today 11/01/2021 in follow-up on the regular medical floor. He is currently resting quite comfortably in bed. Awake and alert in no acute distress. He does seem to answer yes no questions appropriately. He denies any worsening shortness of breath or cough. He states he is hungry. He is maintaining good O2 saturations in the 90s on 2 L/m per nasal cannula. Blood cultures revealed no growth. Influenza screen negative. Pro-calcitonin 0.14. He remains on ceftriaxone, bronchodilators and IV Solu-Medrol. Objective - Vital Signs Vital signs: Vital Signs Temp 98.5 F 11/01/21 07:00 Pulse 88 11/01/21 11:29 Resp 20 11/01/21 08:00 BP 142/76 11/01/21 07:00 Pulse Ox 98 11/01/21 07:00 Intake & Output 10/31/21 11/01/21 11/01/21 18:59 06:59 18:59 Intake Total 118 118 Balance 118 118 Intake: Oral 118 118 Other: Voiding Method Diaper Diaper # Voids 3 1 - Exam GENERAL EXAM: Alert, altered from previous head injury, 61-year-old male patient, on 2 L nasal cannula, comfortable in no apparent distress. HEAD: Normocephalic. EYES: Normal reaction of pupils, equal size. NOSE: Clear with pink turbinates. THROAT: No erythema or exudates. NECK: No masses, no JVD. CHEST: No chest wall deformity. LUNGS: Equal air entry with crackles in the posterior bases. CVS: S1 and S2 normal with no audible murmur, regular rhythm. ABDOMEN: No hepatosplenomegaly, normal bowel sounds, no guarding or rigidity. SPINE: No scoliosis or deformity SKIN: No rashes CENTRAL NERVOUS SYSTEM: Unable to assess, previous closed head injury, tone is normal in all 4 extremities. EXTREMITIES: Contractures. There is no peripheral edema. No clubbing, no cyanosis. Peripheral pulses are intact. - Labs CBC & Chem 7: 10/30/21 16:32 10/30/21 16:32 Labs: Abnormal Lab Results - Last 24 Hours (Table) 10/30/21 11/01/21 Range/Units 16:32 06:09 Procalcitonin 0.20 H 0.14 H (0.02-0.09) ng/mL Microbiology - Last 24 Hours (Table) 10/30/21 19:10 Blood Culture - Preliminary Blood No Growth after 24 hours 10/30/21 19:10 Blood Culture - Preliminary Blood No Growth after 24 hours Assessment and Plan Assessment: 1 Altered mental status with tachycardia and shortness of breath according to staff from the extended care facility. The patient is a old traumatic brain injury and a poor historian. He is currently resting in bed on 2 L nasal cannula. Comfortable. Chest x-ray and CAT scan revealed no acute pulmonary process. Some chronic evidence of mild pulmonary fibrosis. Procalcitonin 0.14. Computed tomography scan of the brain revealed no acute intracranial abnormalities. 2 Traumatic brain injury 3 History of stroke 4 Left sided hemiparesis 5 History of seizure disorder 7 History of congestive heart failure 8 History of COPD 9 [facility] resident Plan: The patient was seen and evaluated ProCalcitonin level 0.14 He is comfortable and on 2 L nasal cannula Titrate the FiO2 as tolerated We'll switch IV Solu-Medrol to prednisone Continue bronchodilators Probable discharge in the a.m. We will continue to follow I, the cosigning physician, performed a history & physical examination of the patient. Lungs sounds coarse crackles in the posterior bases. Maintaining good O2 saturations in the 90s on 2 L/m per nasal cannula. I discussed the assessment and plan of care with my nurse practitioner, Perla Demarco. I attest to the above note as dictated by her.
[2021-11-01] MEDS: ATORVASTATIN 40 MG TAB PO SCH (20:19)
--- NOTE | 2021-11-01 20:31 | P.PN ---
Progress Note - Text Progress Note Date: 11/01/21 Chief Complaint: Short of breath This is a pleasant 61-year-old patient who follows with visiting physicians Dr. Michel. Chronic stable medical conditions include hypertension, hyperlipidemia, cognitive impairment. Following traumatic brain injury, left hemiparesis, i ncontinent of stool and urine, needs 2 person assist to transfer, home oxygen 2 L. Can also some questions slowly. EMS was called out. According to staff the patient on levo". At her baseline patient can answer some simple questions with inappropriate verbal outbursts. Patient not been acting himself. This was 30 minutes prior to arrival of the EMS. Patient is found to have a fever and diff iculty breathing. Cover test was negative. Patient was noted to be tachycardic in the temperature 100.6 on arrival. In the ER he was tachypneic with some use of accessory muscles. Admitted with COPD exacerbation, pneumonia, sepsis November 01: No fever. Breathing a bit better. Some cough. Had his breakfast. Progress review of systems difficult to obtain because of not easy historian Active Medications Albuterol/Ipratropium (Ipratropium-Albuterol 3 Ml Neb) 3 ml INHALATION RT-QID [facility] Last Admin: 11/01/21 18:58 Dose: 3 ml Documented by: Atorvastatin Calcium (Atorvastatin 40 Mg Tab) 40 mg PO HS@1999 [facility] Last Admin: 11/01/21 20:19 Dose: 40 mg Documented by: Betamethasone/Clotrimazole (Clotrimazole/Betameth 1-0.05% Cream 45 Gm Tube) 1 applic TOPICAL BID@ [facility]; Protocol Last Admin: 11/01/21 20:20 Dose: 1 applic Documented by: Carbamazepine (Carbamazepine Chew 100 Mg Chew) 150 mg PO BID@ [facility] Last Admin: 11/01/21 20:17 Dose: 150 mg Documented by: Cholecalciferol (Cholecalciferol 125 Mcg (5000 Iu) Tablet) 125 mcg PO DAILY@799 [facility] Last Admin: 11/01/21 09:31 Dose: 125 mcg Documented by: Divalproex Sodium (Divalproex 500 Mg Tablet.) 500 mg PO BID@ [facility] Last Admin: 11/01/21 20:19 Dose: 500 mg Documented by: Docusate Sodium (Docusate Oral Soln 100 Mg/10 Ml Cup) 100 mg PO BID PRN PRN Reason: Constipation Enoxaparin Sodium (Enoxaparin 40 Mg/0.4 Ml Syringe) 40 mg SQ DAILY [facility] Last Admin: 11/01/21 09:34 Dose: 40 mg Documented by: Fenofibrate (Fenofibrate 160 Mg Tab) 160 mg PO DAILY@0800 [facility] Last Admin: 11/01/21 09:30 Dose: 160 mg Documented by: Guaifenesin (Guaifenesin 600 Mg Tablet.Er) 600 mg PO Q12H PRN PRN Reason: cough/congestion Ceftriaxone Sodium 1 gm/ (Sodium Chloride) 50 mls @ 100 mls/hr IVPB Q12HR [facility] Last Admin: 11/01/21 09:34 Dose: 100 mls/hr Documented by: Loratadine (Loratadine 10 Mg Tab) 10 mg PO HS PRN PRN Reason: Allergy Symptoms Lorazepam (Lorazepam 0.5 Mg Tab) 0.5 mg PO TID PRN PRN Reason: ANXIETY/AGITATION Magnesium Hydroxide (Magnesium Hydroxide 2,400 Mg/10 Ml Cup) 800 mg PO DAILY PRN PRN Reason: Constipation Methylprednisolone Sodium Succinate (Methylprednisolone Sod Succi 40 Mg/Ml 1 Ml Vial) 40 mg IV Q8HR [facility] Last Admin: 11/01/21 16:00 Dose: 40 mg Documented by: Risperidone (Risperidone 1 Mg Tab) 1 mg PO TID@0800,1400,2000 [facility] Last Admin: 11/01/21 20:17 Dose: 1 mg Documented by: Past medical history to include: CHF, COPD, hyperlipidemia, hypertension, memory impairment, seizure disorder, traumatic brain injury, left sided weakness, incontinent of stool and urine, patient is a 2 person assist for transfer, home oxygen 2 L Social history: Prior history of smoking and alcohol. None currently. Family history: Patient cannot tell Physical examination: VITAL SIGNS: Afebrile, 84, 18, 152 with 78, 99% room air GENERAL: , reclining in bed, looking better EYES: Pupils equal. Conjunctiva normal. HEENT: External appearance of nose and ears normal, oral cavity grossly normal. NECK: JVD not raised; masses not palpable. HEART: First and second heart sounds are normal; no edema. LUNGS: Respiratory rate increased; decreased breath sounds. ABDOMEN: Soft, nontender, liver spleen not palpable, no masses palpable. PSYCH: Patient will answer some simple occasional questionsl. NEUROLOGICAL: [Cranial nerves grossly intact; no facial asymmetry, contracture of the left hand some left-sided weakness INVESTIGATIONS, reviewed in the clinical context: November 01: Pro-calcitonin 0.14. Influenza type A, type B: Not detected White count 15.8 hemoglobin 11.9 platelets 342 left shift sodium 135 potassium 3.9 creatinine 0.75 Lactic acid 3.1 troponin I less than 0.012 BNP 242 Coronavirus [PCR]: Not detected EKG tracing personally reviewed by me-sinus tachycardia. ST segment depression in several leads. Chest x-ray film personally reviewed by me-scattered infiltrates. Cannot rule out fibrosis CT angiogram chest: No evidence of PE. Coarse interstitial peripheral infiltrates. Some consistency with pulmonary fibrosis. Chronic elevation of left diaphragm patient is also not new. Assessment and plan: -Pneumonia, suspect gram-negative organism: Improving IV ceftriaxone -Sepsis from pneumonia: Improving IV fluids, antibiotics -Major cognitive impairment from prior traumatic brain injury -Chronic left-sided weakness with left hand contracture -Seizure disorder from prior history of brain injury Tegretol 1 mg twice a day Depakote 500 mg twice a day -Double bowel and urinary incontinence Uses diapers -Acute COPD exacerbation and a previous smoker, improving DuoNeb, IV Solu-Medrol IV ceftriaxone, DuoNeb, IV Solu-Medrol. Change to steroids to prednisone tomorrow
[2021-11-02 07:19] VITALS: RESP 18
[2021-11-02] MEDS: IPRATROPIUM-ALBUTEROL 3 ML NEB INHALATION SCH ×2 (07:19→10:49)
[2021-11-02] MEDS: CHOLECALCIFEROL 125 MCG (5000 IU) TABLET PO SCH (08:22)
[2021-11-02] MEDS: FENOFIBRATE 160 MG TAB PO SCH (08:22)
[2021-11-02] MEDS: risperiDONE 1 MG TAB PO SCH ×2 (08:23→13:59)
[2021-11-02] MEDS: ENOXAPARIN 40 MG/0.4 ML SYRINGE SQ SCH (08:25)
[2021-11-02] MEDS: DIVALPROEX 500 MG TABLET.DR PO SCH (08:25)
[2021-11-02] MEDS: CLOTRIMAZOLE/BETAMETH 1-0.05% CREAM 45 GM TUBE TOPICAL SCH (08:26)
[2021-11-02] MEDS ORDERED: predniSONE 20 MG TAB PO SCH (09:00)
--- NOTE | 2021-11-02 12:25 | P.PN ---
Subjective Progress Note Date: 11/02/21 This is a 61-year-old male patient with a known history of traumatic brain injury and medical debility with contractures and resides in a local custodial. He has a history of hypertension, hyperlipidemia, seizure disorder, left hemiparesis, chronic oxygen at 2 L per nasal cannula. He was brought into the emergency room yesterday after being found to have some altered mental status, shortness of breath and tachycardia. Chest x-ray reveals interstitial mild pulmonary infiltrates which are similar to compared to previous exam in 2018 and evidence of pulmonary fibrosis. Poor inspiratory effort. CT angiogram ruled out pulmonary embolism. There is coarse interstitial peripheral infiltrates consistent with pulmonary fibrosis. No suspicious pulmonary mass. Chronic elevation of left hemidiaphragm. No acute pulmonary process. CAT scan of the brain revealed cerebral atrophy. No acute intracranial abnormality. White count 15.8. Hemoglobin 11.2. D-dimer 1.81. Sodium 135. Potassium 3.9. Creatinine 0.75. Glucose 194. Lactic acid 1.5. AST 22. ALT 17. Naidu virus by PCR not detected. Urinalysis with 3+ glucose. He is currently on ceftriaxone, bronchodilators, Mucinex, prednisone. His been afebrile. Blood pressure stable. Some tachycardia. O2 saturation 100% on 2 L nasal cannula. The patient is a poor historian. He has inappropriate outbursts at times. No acute respiratory distress. The patient is seen today 11/01/2021 in follow-up on the regular medical floor. He is currently resting quite comfortably in bed. Awake and alert in no acute distress. He does seem to answer yes no questions appropriately. He denies any worsening shortness of breath or cough. He states he is hungry. He is maintaining good O2 saturations in the 90s on 2 L/m per nasal cannula. Blood cultures revealed no growth. Influenza screen negative. Pro-calcitonin 0.14. He remains on ceftriaxone, bronchodilators and IV Solu-Medrol. Patient is seen today 11/02/2021 in follow-up on the regular medical floor. He is awake and alert in no acute distress. Maintaining O2 saturations in the 90s on 2 L/m per nasal cannula. He is continued on bronchodilators, oral prednisone,antibiotics in form of ceftriaxone. Lovenox for DVT prophylaxis. Pro-calcitonin 0.14. Blood cultures reveal no growth. Objective - Vital Signs Vital signs: Vital Signs Temp 98.8 F 11/02/21 07:00 Pulse 79 11/02/21 10:57 Resp 18 11/02/21 08:00 BP 143/87 11/02/21 07:00 Pulse Ox 98 11/02/21 07:00 Intake & Output 11/01/21 11/02/21 11/02/21 18:59 06:59 18:59 Intake Total 354 118 Balance 354 118 Intake: Oral 354 118 Other: Voiding Method Diaper Diaper Diaper # Voids 1 0 - Exam GENERAL EXAM: Alert, altered from previous head injury, 61-year-old male patient, on 2 L nasal cannula, comfortable in no apparent distress. HEAD: Normocephalic. EYES: Normal reaction of pupils, equal size. NOSE: Clear with pink turbinates. THROAT: No erythema or exudates. NECK: No masses, no JVD. CHEST: No chest wall deformity. LUNGS: Equal air entry with crackles in the posterior bases. CVS: S1 and S2 normal with no audible murmur, regular rhythm. ABDOMEN: No hepatosplenomegaly, normal bowel sounds, no guarding or rigidity. SPINE: No scoliosis or deformity SKIN: No rashes CENTRAL NERVOUS SYSTEM: Unable to assess, previous closed head injury, tone is normal in all 4 extremities. EXTREMITIES: Contractures. There is no peripheral edema. No clubbing, no c yanosis. Peripheral pulses are intact. - Labs CBC & Chem 7: 10/30/21 16:32 10/30/21 16:32 Labs: Microbiology - Last 24 Hours (Table) 10/30/21 19:10 Blood Culture - Preliminary Blood No Growth after 48 hours 10/30/21 19:10 Blood Culture - Preliminary Blood No Growth after 48 hours Assessment and Plan Assessment: 1 Altered mental status with tachycardia and shortness of breath according to staff from the extended care facility. The patient is a old traumatic brain injury and a poor historian. He is currently resting in bed on 2 L nasal cannula. Comfortable. Chest x-ray and CAT scan revealed no acute pulmonary process. Some chronic evidence of mild pulmonary fibrosis. Procalcitonin 0.14. Computed tomography scan of the brain revealed no acute intracranial abnormalities. 2 Traumatic brain injury 3 History of stroke 4 Left sided hemiparesis 5 History of seizure disorder 7 History of congestive heart failure 8 History of COPD 9 [facility] resident Plan: The patient was seen and evaluated Cleared for discharge from the pulmonary standpoint He is comfortable and on 2 L nasal cannula Evaluated for possible home oxygen Complete a taper of prednisone Continue bronchodilators I, the cosigning physician, performed a history & physical examination of the patient. Lungs sounds coarse crackles in the posterior bases. Maintaining good O2 saturations in the 90s on 2 L/m per nasal cannula. I discussed the assessment and plan of care with my nurse practitioner, Perla Demarco. I attest to the above note as dictated by her.
[2021-11-02 14:18] VITALS: BP 117/73; PULSE 100; TEMP 98.5
--- NOTE | 2021-11-02 16:48 | P.DS ---
Providers Date of admission: 10/30/21 19:32 Expected date of discharge: 11/02/21 Attending physician: Roberto Diaz Consults: 10/31/21 11:36 Consult Physician Routine Consulting Provider: Edward Pacheco Consult Reason/Comments: resp failure copd Do you want consulting provider notified?: Yes [facility] Course: Chief Complaint: Short of breath This is a pleasant 61-year-old patient who follows with visiting physicians Dr. Michel. Chronic stable medical conditions include hypertension, hyperlipidemia, cognitive impairment. Following traumatic brain injury, left hemiparesis, incontinent of stool and urine, needs 2 person assist to transfer, home oxygen 2 L. Can also some questions slowly. EMS was called out. According to staff the patient on levo". At her baseline patient can answer some simple questions with inappropriate verbal outbursts. Patient not been acting himself. This was 30 minutes prior to arrival of the EMS. Patient is found to have a fever and difficulty breathing. Cover test was negative. Patient was noted to be tachycardic in the temperature 100.6 on arrival. In the ER he was tachypneic with some use of accessory muscles. Admitted with COPD exacerbation, pneumonia, sepsis November 01: No fever. Breathing a bit better. Some cough. Had his breakfast. November 02: Doing much better. Breathing improved. Oral intake fair Consultation: Dr. Melissa from pulmonary Past medical history to include: CHF, COPD, hyperlipidemia, hypertension, memory impairment, seizure disorder, traumatic brain injury, left sided weakness, incontinent of stool and urine, patient is a 2 person assist for transfer, home oxygen 2 L Social history: Prior history of smoking and alcohol. None currently. Family history: Patient cannot tell Physical examination: VITAL SIGNS: 98.5, 100, 18, 11 7/73, 100% on 2 L GENERAL: , Declining up in bed, looking better EYES: Pupils equal. Conjunctiva normal. HEENT: External appearance of nose and ears normal, oral cavity grossly normal. NECK: JVD not raised; masses not palpable. HEART: First and second heart sounds are normal; no edema. LUNGS: Respiratory rate normal; decreased breath sounds. ABDOMEN: Soft, nontender, liver spleen not palpable, no masses palpable. PSYCH: Patient will answer occasional questionsl. NEUROLOGICAL: [Cranial nerves grossly intact; no facial asymmetry, contracture of the left hand some left-sided weakness INVESTIGATIONS, reviewed in the clinical context: November 01: Pro-calcitonin 0.14. Influenza type A, type B: Not detected White count 15.8 hemoglobin 11.9 platelets 342 left shift sodium 135 potassium 3.9 creatinine 0.75 Lactic acid 3.1 troponin I less than 0.012 BNP 242 Coronavirus [PCR]: Not detected EKG tracing personally reviewed by me-sinus tachycardia. segment depression in several leads. Chest x-ray film personally reviewed by me-scattered infiltrates. Cannot rule out fibrosis CT angiogram chest: No evidence of PE. Coarse interstitial peripheral infiltrates. Some consistency with pulmonary fibrosis. Chronic elevation of left diaphragm patient is also not new. Assessment and plan: -Pneumonia, suspect gram-negative organism: Improving IV ceftriaxone. DC on Ceftin 5 mg twice a day for 5 days -Sepsis from pneumonia: Improving IV fluids, antibiotics -Major cognitive impairment from prior traumatic brain injury -Chronic left-sided weakness with left hand contracture -Seizure disorder from prior history of brain injury Tegretol 1 mg twice a day Depakote 500 mg twice a day -Double bowel and urinary incontinence Uses diapers -Acute COPD exacerbation and a previous smoker, improving DuoNeb, IV Solu-Medrol. DC on prednisone taper Disposition: Assisted-living: [facility] Patient Condition at Discharge: Fair Plan - Discharge Summary Discharge Rx Participant: No New Discharge Prescriptions: New Cefuroxime Axetil [Ceftin] 500 mg PO BID #10 tab predniSONE 10 mg PO DAILY #30 tab Continue Acetaminophen Tab [Tylenol] 500 - 1,000 mg PO Q4H PRN PRN Reason: Pain Or Fever > 100.5 Loratadine 10 mg PO HS PRN PRN Reason: Allergy Symptoms Divalproex Sodium [Depakote] 500 mg PO BID@0800,2000 Magnesium Hydroxide [Milk of Magnesia] 800 mg PO DAILY PRN PRN Reason: Constipation Atorvastatin [Lipitor] 40 mg PO HS@2000 Ipratropium-Albuterol Nebulize [Duoneb 0.5 mg-3 mg/3 ml Soln] 3 ml INHALATION RT-QID Cholecalciferol (Vitamin D3) [Vitamin D3 (125 MCG = 5,000 IU)] 125 mcg PO DAILY@0800 Fenofibrate [Lofibra] 160 mg PO DAILY@0800 Clotrimazole/Betameth Cream [Lotrisone] 1 applic TOPICAL BID@ Docusate Oral Soln [Colace Oral Soln] 100 mg PO BID PRN PRN Reason: Constipation Fish Oil/Dha/Epa [Fish Oil 1,200 mg Fish Oil] 1 cap PO BID@ Lactose-Reduced Food [Boost] 237 ml PO BID@ guaiFENesin 400 mg PO Q4H PRN PRN Reason: cough/congestion LORazepam [Ativan] 0.5 mg PO TID PRN PRN Reason: ANXIETY/AGITATION risperiDONE [RisperDAL] 1 mg PO TID@08,1399,1999 carBAMazepine CHEW [TEGretol Chew] 150 mg PO BID@ Discontinued hydroCHLOROthiazide [Hydrodiuril] 25 mg PO DAILY@799 Discharge Medication List Acetaminophen Tab [Tylenol] 500 - 1,000 mg PO Q4H PRN 10/04/16 [History] Divalproex Sodium [Depakote] 500 mg PO BID@799,199910/04/16 [History] Loratadine 10 mg PO HS PRN 10/04/16 [History] Magnesium Hydroxide [Milk of Magnesia] 800 mg PO DAILY PRN 10/18/17 [History] Atorvastatin [Lipitor] 40 mg PO HS@199908/10/18 [History] Ipratropium-Albuterol Nebulize [Duoneb 0.5 mg-3 mg/3 ml Soln] 3 ml INHALATION RT-QID 08/10/18 [History] Cholecalciferol (Vitamin D3) [Vitamin D3 (125 MCG = 5,000 IU)] 125 mcg PO DAILY@79909/03/21 [History] Clotrimazole/Betameth Cream [Lotrisone] 1 applic TOPICAL BID@09/03/21 [History] Docusate Oral Soln [Colace Oral Soln] 100 mg PO BID PRN 09/03/21 [History] Fenofibrate [Lofibra] 160 mg PO DAILY@79909/03/21 [History] Fish Oil/Dha/Epa [Fish Oil 1,200 mg Fish Oil] 1 cap PO BID@799,199909/03/21 [History] Lactose-Reduced Food [Boost] 237 ml PO BID@1000,2000 11/08/21 [History] guaiFENesin 400 mg PO Q4H PRN 09/03/21 [History] LORazepam [Ativan] 0.5 mg PO TID PRN 10/30/21 [History] carBAMazepine CHEW [TEGretol Chew] 150 mg PO BID@0800,199910/30/21 [History] risperiDONE [RisperDAL] 1 mg PO TID@0800,1400,199910/30/21 [History] Cefuroxime Axetil [Ceftin] 500 mg PO BID #10 tab 11/02/21 [Rx] predniSONE 10 mg PO DAILY #30 tab 11/02/21 [Rx] Follow up Appointment(s)/Referral(s): Pablo Michel MD [Primary Care Provider] - 1-2 days Patient Instructions/Handouts: COPD (Chronic Obstructive Pulmonary Disease) (DC) Activity/Diet/Wound Care/Special Instructions: Follow up as directed, sooner if worsening symptoms that brought patient in.
== END 2021-11-02 15:16 ==
LOC: EC 15:31 → 6NMEDSUR 19:32
PROVIDERS: ADMIT Hospitalist; ATTEND Hospitalist
DX: J18.9 Pneumonia, unspecified organism (principal); A41.9 Sepsis, unspecified organism; J44.1 Chronic obstructive pulmonary disease with (acute) exacerbation; J44.0 Chronic obstructive pulmonary disease with (acute) lower respiratory infection; J84.10 Pulmonary fibrosis, unspecified; R41.89 Other symptoms and signs involving cognitive functions and awareness; G40.909 Epilepsy, unspecified, not intractable, without status epilepticus; R32 Unspecified urinary incontinence; R15.9 Full incontinence of feces; Z20.822 Contact with and (suspected) exposure to COVID-19; G81.94 Hemiplegia, unspecified affecting left nondominant side; I11.0 Hypertensive heart disease with heart failure; I50.9 Heart failure, unspecified; E78.5 Hyperlipidemia, unspecified; E66.9 Obesity, unspecified; Z68.28 Body mass index [BMI] 28.0-28.9, adult; K59.00 Constipation, unspecified; F41.9 Anxiety disorder, unspecified; F32.9 Major depressive disorder, single episode, unspecified; Z79.899 Other long term (current) drug therapy; M24.542 Contracture, left hand; Z87.820 Personal history of traumatic brain injury; Z87.891 Personal history of nicotine dependence; Z87.01 Personal history of pneumonia (recurrent); Z86.14 Personal history of Methicillin resistant Staphylococcus aureus infection; Z86.73 Personal history of transient ischemic attack (TIA), and cerebral infarction without residual deficits
CPT/HCPCS: 99285; 96376; 96366 ×2; 96367; 96372 ×3; 96375 ×2; 96361; 96365; 36415; 94640 ×7; 93005; 85379; 83880; 80053; 83605; 83735; 84484; 85025; 85610; 85730; 81003; 87040; 87502; 84145 ×2; 87635; 71045; 70450; 71275; G0378 ×4; J1100; J2920 ×2; J0456; J1650 ×3; J0696 ×2; J7512 ×2; Q9967

== ENCOUNTER 2021-11-09 09:59 | Emergency (ER) | payer OTHER ==
[2021-11-09] MEDS ORDERED: SODIUM CHLORIDE 0.9% 1,000 ML IV STA (10:34)
[2021-11-09 10:35] VITALS: TEMP 98.2
[2021-11-09 10:50] LABS: Basophils % (A) 0 %; Eosinophils # (A) 0.1 k/uL (0-0.7); Eosinophils % (A) 1 %; HCT 35.7 % (39.0-53.0); Hypochromasia Slight; Lymphocytes # (A) 1.9 k/uL (1.0-4.8); Lymphocytes % (A) 22 %; MCH 29.1 pg (25.0-35.0); MCHC 30.9 g/dL (31.0-37.0); MCV 94.2 fL (80.0-100.0); Mean Platelet Volume 7.3; Monocytes # (A) 0.7 k/uL (0-1.0); Monocytes % (A) 8 %; Neutrophils # (A) 5.7 k/uL (1.3-7.7); Neutrophils % (A) 66 %; Platelet Count 569 k/uL (150-450); RBC 3.79 m/uL (4.30-5.90); RDW 14.8 % (11.5-15.5); WBC 8.7 k/uL (3.8-10.6)
[2021-11-09 11:00] LABS: ALT 17 U/L (4-49); AST 19 U/L (17-59); African American GFR (CKD) >90 (>60 ml/min/1.73 sqM); Albumin 3.6 g/dL (3.5-5.0); Alkaline Phosphatase 65 U/L (38-126); Anion Gap 5 mmol/L; Blood Urea Nitrogen 19 mg/dL (9-20); Calcium 9.9 mg/dL (8.4-10.2); Carbon Dioxide 30 mmol/L (22-30); Chloride 112 mmol/L (98-107); Glucose 91 mg/dL (74-99); Magnesium 2.1 mg/dL (1.6-2.3); Non-African American GFR(CKD) >90 (>60 ml/min/1.73 sqM); Potassium 4.3 mmol/L (3.5-5.1); Sodium 147 mmol/L (137-145); Total Bilirubin 0.5 mg/dL (0.2-1.3); Total Protein 6.4 g/dL (6.3-8.2)
[2021-11-09 11:20] LABS: INR 1.1 (<1.2)
--- NOTE | 2021-11-09 11:39 | ED ---
General Adult HPI - General Chief complaint: Arrhythmia/Palpitations Stated complaint: SOB Time Seen by Provider: 11/09/21 10:30 Source: EMS, RN notes reviewed, old records reviewed, Caregiver Mode of arrival: EMS Limitations: no limitations - History of Present Illness Initial comments: This is a 61-year-old male who lives in assisted living center agents unable to give any history. Patient was sent in because they noted his heart rate was fast at about 130 beats a arrival minI went into the room and the patient's heart rate was 105 and did not appear to be in any respiratory distress at this time. No other history was available. No indication of any fevers.[place] and it appeared to them that he was having difficulty breathing. - Related Data Home Medications Medication Instructions Recorded Confirmed Acetaminophen Tab [Tylenol] 500 - 1,000 mg PO Q4-6H PRN 10/04/16 11/09/21 Divalproex Sodium [Depakote] 500 mg PO BID@0800,199910/04/16 11/09/21 Loratadine 10 mg PO HS PRN 10/04/16 11/09/21 Magnesium Hydroxide [Milk of 800 mg PO DAILY PRN 10/18/17 11/09/21 Magnesia] Atorvastatin [Lipitor] 40 mg PO HS@199908/10/18 11/09/21 Ipratropium-Albuterol Nebulize 3 ml INHALATION RT-QID 08/10/18 11/09/21 [Duoneb 0.5 mg-3 mg/3 ml Soln] Cholecalciferol (Vitamin D3) 125 mcg PO DAILY@0800 09/03/21 11/09/21 [Vitamin D3 (125 MCG = 5,000 IU)] Clotrimazole/Betameth Cream 1 applic TOPICAL BID@0800,199909/03/21 11/09/21 [Lotrisone] Docusate Oral Soln [Colace Oral 100 mg PO BID PRN 09/03/21 11/09/21 Soln] Fenofibrate [Lofibra] 160 mg PO DAILY@0800 09/03/21 11/09/21 Fish Oil/Dha/Epa [Fish Oil 1,200 1 cap PO BID@0800,199909/03/21 11/09/21 mg Fish Oil] Lactose-Reduced Food [Boost] 237 ml PO BID@999,199909/03/21 11/09/21 guaiFENesin 400 mg PO Q4-6H PRN 09/03/21 11/09/21 LORazepam [Ativan] 0.5 mg PO TID PRN 10/30/21 11/09/21 carBAMazepine CHEW [TEGretol Chew] 150 mg PO BID@0800,199910/30/21 11/09/21 risperiDONE [RisperDAL] 1 mg PO TID@0800,1399,199910/30/21 11/09/21 Econazole 1% Cream [Spectazole] 1 applic TOPICAL BID@0800,199911/09/21 11/09/21 predniSONE See Taper PO HS@2100 11/09/21 11/09/21 Allergies Allergy/AdvReac Type Severity Reaction Status Date / Time No Known Allergies Allergy Verified 11/09/21 10:47 Review of Systems ROS Statement: Those systems with pertinent positive or pertinent negative responses have been documented in the HPI. ROS Other: All systems not noted in ROS Statement are negative. 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 History of Any Multi-Drug Resistant Organisms: MRSA Date of last positivie culture/infection: 09/13/17 MDRO Source:: mrsa mouth Past Surgical History: Unable to Obtain Additional Past Surgical History / Comment(s): [facility]; PEG inserted 06/27/17, teeth extration 2016 Past Anesthesia/Blood Transfusion Reactions: Unable to Obtain Past Psychological History: Depression Smoking Status: Unknown if ever smoked Past Alcohol Use History: None Reported Past Drug Use History: None Reported - Past Family History Father Family Medical History: Unable to Obtain Mother Family Medical History: Unable to Obtain General Exam - General Exam Comments Initial Comments: GENERAL: Patient is well-developed and well-nourished. Patient is nontoxic and well- hydrated and is in no acute distress. ENT: Neck is soft and supple. No significant lymphadenopathy is noted. Oropharynx i s clear. Moist mucous membranes. Neck has full range of motion without eliciting any pain. EYES: The sclera were anicteric and conjunctiva were pink and moist. Extraocular movements were intact and pupils were equal round and reactive to light. Eyelids were unremarkable. PULMONARY: Unlabored respirations. Good breath sounds bilaterally. No audible rales rhonchi or wheezing was noted. CARDIOVASCULAR: Patient is tachycardic in the 105 beats a minute ABDOMEN: Soft and nontender with normal bowel sounds. SKIN: Skin is clear with no lesions or rashes and otherwise unremarkable. NEUROLOGIC: Patient is alert and oriented 0, I am told us his baseline. Patient is able to move his arms I am unable to get him to move his legs but he has boots on both legs. I am told he does not ambulate MUSCULOSKELETAL: No lower extremity swelling or edema. LYMPHATICS: No significant lymphadenopathy is noted PSYCHIATRIC: Unable to assess since patient does not interact at all. Limitations: no limitations Course Vital Signs 11/09/21 11/09/21 11/09/21 10:31 11:29 13:55 Temperature 98.2 F Pulse Rate 110 H 104 H 88 Respiratory 26 H 20 20 Rate Blood Pressure 139/87 144/83 146/80 O2 Sat by Pulse 93 L 98 97 Oximetry Medical Decision Making - Medical Decision Making EKG shows sinus tachycardia at 105 bpm [place] interval 120 QRS 92 QT interval 326 QTC is 4:30. Patient's EKG shows no ST segment elevation or depression. Chest x-ray shows no acute abnormality. CT showed no pulmonary embolism of his chest and also there was some interstitial infiltrate which was unchanged since 2017 Patient's vitals were completely stable heart rate was in the 80s pulse ox was in the high 90s. Patient was in no distress. - Lab Data Result diagrams: 11/09/21 10:36 11/09/21 10:36 Lab Results 11/09/21 11/09/21 11/09/21 Range/Units 10:36 10:36 10:36 WBC 8.7 (3.8-10.6) k/uL RBC 3.79 L (4.30-5.90) m/uL Hgb 11.0 L (13.0-17.5) gm/dL Hct 35.7 L (39.0-53.0) % MCV 94.2 (80.0-100.0) fL MCH 29.1 (25.0-35.0) pg MCHC 30.9 L (31.0-37.0) g/dL RDW 14.8 (11.5-15.5) % Plt Count 569 H (150-450) k/uL MPV 7.3 Neutrophils % 66 % Lymphocytes % 22 % Monocytes % 8 % Eosinophils % 1 % Basophils % 0 % Neutrophils # 5.7 (1.3-7.7) k/uL Lymphocytes # 1.9 (1.0-4.8) k/uL Monocytes # 0.7 (0-1.0) k/uL Eosinophils # 0.1 (0-0.7) k/uL Basophils # 0.0 (0-0.2) k/uL Hypochromasia Slight PT 12.0 (9.0-12.0) sec INR 1.1 (<1.2) APTT 21.8 L (22.0-30.0) sec D-Dimer 2.51 H (<0.60) mg/L FEU Sodium 147 H (137-145) mmol/L Potassium 4.3 (3.5-5.1) mmol/L Chloride 112 H (98-107) mmol/L Carbon Dioxide 30 (22-30) mmol/L Anion Gap 5 mmol/L BUN 19 (9-20) mg/dL Creatinine 0.76 (0.66-1.25) mg/dL Est GFR (CKD-EPI)AfAm >90 (>60 ml/min/1.73 sqM) Est GFR (CKD-EPI)NonAf >90 (>60 ml/min/1.73 sqM) Glucose 91 (74-99) mg/dL Lactic Ac Sepsis Rflx Plasma Lactic Acid Hermes (0.7-2.0) mmol/L Calcium 9.9 (8.4-10.2) mg/dL Magnesium 2.1 (1.6-2.3) mg/dL Total Bilirubin 0.5 (0.2-1.3) mg/dL AST 19 (17-59) U/L ALT 17 (4-49) U/L Alkaline Phosphatase 65 (38-126) U/L Troponin I (0.000-0.034) ng/mL NT-Pro-B Natriuret Pep pg/mL Total Protein 6.4 (6.3-8.2) g/dL Albumin 3.6 (3.5-5.0) g/dL 11/09/21 11/09/21 11/09/21 Range/Units 10:36 10:36 10:36 WBC (3.8-10.6) k/uL RBC (4.30-5.90) m/uL Hgb (13.0-17.5) gm/dL Hct (39.0-53.0) % MCV (80.0-100.0) fL MCH (25.0-35.0) pg MCHC (31.0-37.0) g/dL RDW (11.5-15.5) % Plt Count (150-450) k/uL MPV Neutrophils % % Lymphocytes % % Monocytes % % Eosinophils % % Basophils % % Neutrophils # (1.3-7.7) k/uL Lymphocytes # (1.0-4.8) k/uL Monocytes # (0-1.0) k/uL Eosinophils # (0-0.7) k/uL Basophils # (0-0.2) k/uL Hypochromasia PT (9.0-12.0) sec INR (<1.2) APTT (22.0-30.0) sec D-Dimer (<0.60) mg/L FEU Sodium (137-145) mmol/L Potassium (3.5-5.1) mmol/L Chloride (98-107) mmol/L Carbon Dioxide (22-30) mmol/L Anion Gap mmol/L BUN (9-20) mg/dL Creatinine (0.66-1.25) mg/dL Est GFR (CKD-EPI)AfAm (>60 ml/min/1.73 sqM) Est GFR (CKD-EPI)NonAf (>60 ml/min/1.73 sqM) Glucose (74-99) mg/dL Lactic Ac Sepsis Rflx Plasma Lactic Acid Hermes 3.0 H* (0.7-2.0) mmol/L Calcium (8.4-10.2) mg/dL Magnesium (1.6-2.3) mg/dL Total Bilirubin (0.2-1.3) mg/dL AST (17-59) U/L ALT (4-49) U/L Alkaline Phosphatase (38-126) U/L Troponin I <0.012 (0.000-0.034) ng/mL NT-Pro-B Natriuret Pep 22 pg/mL Total Protein (6.3-8.2) g/dL Albumin (3.5-5.0) g/dL 11/09/21 Range/Units 11:07 WBC (3.8-10.6) k/uL RBC (4.30-5.90) m/uL Hgb (13.0-17.5) gm/dL Hct (39.0-53.0) % MCV (80.0-100.0) fL MCH (25.0-35.0) pg MCHC (31.0-37.0) g/dL RDW (11.5-15.5) % Plt Count (150-450) k/uL MPV Neutrophils % % Lymphocytes % % Monocytes % % Eosinophils % % Basophils % % Neutrophils # (1.3-7.7) k/uL Lymphocytes # (1.0-4.8) k/uL Monocytes # (0-1.0) k/uL Eosinophils # (0-0.7) k/uL Basophils # (0-0.2) k/uL Hypochromasia PT (9.0-12.0) sec INR (<1.2) APTT (22.0-30.0) sec D-Dimer (<0.60) mg/L FEU Sodium (137-145) mmol/L Potassium (3.5-5.1) mmol/L Chloride (98-107) mmol/L Carbon Dioxide (22-30) mmol/L Anion Gap mmol/L BUN (9-20) mg/dL Creatinine (0.66-1.25) mg/dL Est GFR (CKD-EPI)AfAm (>60 ml/min/1.73 sqM) Est GFR (CKD-EPI)NonAf (>60 ml/min/1.73 sqM) Glucose (74-99) mg/dL Lactic Ac Sepsis Rflx Y Plasma Lactic Acid Hermes (0.7-2.0) mmol/L Calcium (8.4-10.2) mg/dL Magnesium (1.6-2.3) mg/dL Total Bilirubin (0.2-1.3) mg/dL AST (17-59) U/L ALT (4-49) U/L Alkaline Phosphatase (38-126) U/L Troponin I (0.000-0.034) ng/mL NT-Pro-B Natriuret Pep pg/mL Total Protein (6.3-8.2) g/dL Albumin (3.5-5.0) g/dL Disposition Clinical Impression: Tachycardia Disposition: HOME SELF-CARE Condition: Good Instructions (If sedation given, give patient instructions): Tachycardia (ED) Is patient prescribed a controlled substance at d/c from ED?: No Referrals: Pablo Michel MD [Primary Care Provider] - 1-2 days Time of Disposition: 14:32
--- NOTE | 2021-11-09 11:53 | XR ---
EXAMINATION TYPE: XR chest 2V DATE OF EXAM: 11/09/2021 COMPARISON: 10/30/2021 INDICATION: Difficulty breathing short of breath TECHNIQUE: Frontal and lateral views of the chest are obtained. FINDINGS: The heart size is normal. The pulmonary vasculature is normal. Diffuse increased lung markings are present bilaterally. There is elevation left diaphragm.. IMPRESSION: 1. Nonspecific increased lung markings. Correlate for atypical pneumonia.
[2021-11-09 12:18] LABS: Partial Thromboplastin Time 21.8 sec (22.0-30.0)
[2021-11-09] MEDS ORDERED: LORazepam 2 MG/ML INJ IV STA (13:38)
--- NOTE | 2021-11-09 14:14 | CT ---
CT CHEST FOR PULMONARY EMBOLISM. EXAMINATION TYPE: CT chest angio for PE DATE OF EXAM: 11/09/2021 INDICATION: SOB CT DLP: 457.6 mGycm, Automated exposure control for dose reduction was used. CONTRAST: Patient injected with 100 mL of Isovue 370. COMPARISON: 10/30/2021 TECHNIQUE: CT of the chest is performed on a spiral scan at 2 mm thick sections. Study is performed with intravenous contrast timed for evaluation for pulmonary embolism. This will limit additional po rtions of the evaluation. 3-D MIP images reconstructed by the technologist are reviewed on the compu ter in the coronal and sagittal planes. FINDINGS: No persistent filling defects are evident to suggest an acute pulmonary embolism. No mediastinal or hilar adenopathy enlarged by CT criteria is evident. The ascending aorta diameter at the level of the main pulmonary artery is 3.1 cm. The main pulmonary artery diameter at the bifur cation is 2.5 cm. Patchy peripheral infiltrates are in the anterior lung bases bilaterally. A more focal area of pneumo nitis along the major fissure on the left mid to lower lung field. Example image image 44. Lung nodul ar type densities in the periphery of the right lateral lung measuring 0.7 cm, series 03/01/1952. Fin dings appear stable from 10/30/2021. Limited CT section through the upper abdomen are unremarkable. IMPRESSIONS: 1. No acute pulmonary embolism. 2. Diffuse scattered infiltrates with some underlying stable appearing nodularity. Monitoring with fo llow up exam in 6 months is recommended.
[2021-11-09 15:24] VITALS: BP 144/75; PULSE 87; RESP 22
== END 2021-11-09 15:23 | disposition home or self-care (01) ==
LOC: EC 09:59
DX: R00.0 Tachycardia, unspecified (principal); I11.0 Hypertensive heart disease with heart failure; I50.9 Heart failure, unspecified; J44.9 Chronic obstructive pulmonary disease, unspecified; E78.5 Hyperlipidemia, unspecified; F32.A Depression, unspecified
CPT/HCPCS: 99285; 96374; 36415; 93005; 85379; 83880; 80053; 83605; 83735; 84484; 85025; 85610; 85730; 71046; 71275; J2060; Q9967